=== PATIENT | male | born 1940 | race Caucasian/White ===

== ENCOUNTER 2016-12-14 12:05 | Emergency (ER) | payer MEDICARE, MEDICAID ==
--- NOTE | 2016-12-14 15:26 | EDM.PDOC ---
ED HPI GENERAL MEDICAL PROBLEM - General Chief Complaint: Genitourinary Problem Stated Complaint: ILL Time Seen by Provider: 12/14/16 15:16 Source of Information: Reports: Patient, Family, RN Notes Reviewed History Limitations: Reports: No Limitations - History of Present Illness INITIAL COMMENTS - FREE TEXT/NARRATIVE: 76-year-old gentleman resents emergency department today with difficulty with urination at times he has trouble starting his stream at the time still be incontinent of urine he's been dealing with this for the last 2 weeks has had low-grade fevers but nothing over 100 last night he had one episode of vomiting. At this time he feels his normal usual self - Related Data Allergies Allergy/AdvReac Type Severity Reaction Status Date / Time adhesive Allergy Severe Rash Verified 12/20/15 13:10 ciprofloxacin [From Cipro] Allergy Severe Edema Verified 12/20/15 13:10 ciprofloxacin HCl Allergy Severe Edema Verified 12/20/15 13:10 [From Cipro] Home Meds: Home Meds Aspirin [Adult Low Dose Aspirin EC] 81 mg PO DAILY 03/21/13 [History] EPINEPHrine [Epipen] 0.3 mg IM DAILY PRN 03/21/13 [History] HCTZ/Triamterene [Maxzide 25-37.5 MG] 1 tab PO DAILY 03/21/13 [History] Insulin Aspart [Novolog Flexpen] 60 unit SQ TID 03/21/13 [History] Insulin Detemir [Levemir Flexpen] 90 unit SQ BID 03/21/13 [History] Metoprolol Succinate [Toprol XL] 50 mg PO BID 03/21/13 [History] Multivitamin [Multi-Vitamin Daily] 1 each PO DAILY 03/21/13 [History] Holder-3 Fatty Acids [Holder-3] 100 mg PO BID 03/21/13 [History] Simvastatin [Zocor] 20 mg PO BEDTIME 03/21/13 [History] metFORMIN HCl [Fortamet] 1,000 mg PO BID 03/21/13 [History] Furosemide [Lasix] 40 mg PO DAILY #30 tablet 03/26/13 [Rx] Gemfibrozil [Lopid] 600 mg PO BIDAC #60 tablet 08/16/13 [Rx] amLODIPine [Norvasc] 5 mg PO DAILY #30 tablet 08/16/13 [Rx] Past Medical History HEENT History: Reports: Hard of Hearing, Impaired Vision, Other (See Below) Other HEENT History: No teeth Cardiovascular History: Reports: High Cholesterol, Hypertension Other Psychiatric History: Pt. unable to read or writel Possible dementia. Endocrine/Metabolic History: Reports: Diabetes, Type II Dermatologic History: Reports: Other (See Below) Other Dermatologic History: lower ext. cellulitis - Infectious Disease History Infectious Disease History: Reports: Chicken Pox, Measles, Mumps - Past Surgical History GI Surgical History: Reports: Appendectomy Social & Family History - Tobacco Use Smoking Status *Q: Never Smoker Years of Tobacco use: 25 Used Tobacco, but Quit: Yes Month Tobacco Last Used: 02/1979 Second Hand Smoke Exposure: No - Caffeine Use Caffeine Use: Reports: Coffee, Tea - Alcohol Use Days Per Week of Alcohol Use: 0 - Recreational Drug Use Recreational Drug Use: No ED ROS GENERAL - Review of Systems Review Of Systems: See Below Constitutional: Reports: Fever HEENT: Reports: No Symptoms Respiratory: Reports: No Symptoms Cardiovascular: Reports: No Symptoms GI/Abdominal: Reports: No Symptoms : Reports: No Symptoms ED EXAM, GI/ABD - Physical Exam Exam: See Below Exam Limited By: No Limitations General Appearance: Alert, WD/WN, No Apparent Distress Respiratory/Chest: No Respiratory Distress, Lungs Clear, Normal Breath Sounds, No Accessory Muscle Use, Chest Non-Tender Cardiovascular: Regular Rate, Rhythm, No Murmur GI/Abdominal Exam: Normal Bowel Sounds, Soft, Non-Tender Rectal (Males) Exam: Normal Exam, Normal Rectal Tone, Prostate Normal Course - Orders/Labs/Meds Labs: Laboratory Tests 12/14/16 12/14/16 12/14/16 Range/Units 15:38 15:38 15:38 WBC 9.1 (4.5-11.0) K/uL RBC 5.07 (4.30-5.90) M/uL Hgb 13.5 D (12.0-15.0) g/dL Hct 39.9 L (40.0-54.0) % MCV 79 L (80-98) fL MCH 27 (27-31) pg MCHC 34 (32-36) % Plt Count 205 (150-400) K/uL Neut % (Auto) 75 H (36-66) % Lymph % (Auto) 17 L (24-44) % [place] % (Auto) 8 H (2-6) % Eos % (Auto) 0 L (2-4) % Baso % (Auto) 0 (0-1) % Sodium 137 L (140-148) mmol/L Potassium 3.6 (3.6-5.2) mmol/L Chloride 102 (100-108) mmol/L Carbon Dioxide 29 (21-32) mmol/L Anion Gap 9.6 (5.0-14.0) mmol/L BUN 14 (7-18) mg/dL Creatinine 0.8 D (0.8-1.3) mg/dL Est Cr Clr Drug Dosing 78.56 mL/min Estimated GFR (MDRD) > 60 (>60) Glucose 267 H (74-106) mg/dL Calcium 9.0 (8.5-10.1) mg/dL Total Bilirubin 0.9 (0.2-1.0) mg/dL AST 16 (15-37) U/L ALT 14 (12-78) U/L Alkaline Phosphatase 54 (46-116) U/L Total Protein 6.8 (6.4-8.2) g/dL Albumin 3.0 L (3.4-5.0) g/dL Globulin 3.8 H (2.3-3.5) g/dL Albumin/Globulin Ratio 0.8 L (1.2-2.2) Urine Color Yellow Urine Appearance Cloudy Urine pH 5.0 (4.5-8.0) Ur Specific [place] 1.025 (1.008-1.030) Urine Protein 500 H (NEGATIVE) mg/dL Urine Glucose (UA) 1000 H (NEGATIVE) mg/dL Urine Ketones 15 H (NEGATIVE) mg/dL Urine Occult Blood Moderate (NEGATIVE) Urine Nitrite Negative (NEGAITVE) Urine Bilirubin Negative (NEGATIVE) Urine Urobilinogen Normal (NORMAL) mg/dL Ur Leukocyte Esterase Negative (NEGATIVE) Urine RBC 0-5 (0-5) Urine WBC 0-5 (0-5) Ur Epithelial Cells Rare Amorphous Sediment Packed Urine Bacteria Few Urine Mucus Not seen Departure - Departure Time of Disposition: 17:25 Disposition: Home, Self-Care 01 Condition: Good Clinical Impression: Retention of urine, Leakage of urine from ureter - Discharge Information Referrals: Shama Solis MD [Primary Care Provider] - Forms: ED Department Discharge Additional Instructions: Keep the leg bag in place, face follow-up with your primary care provider in the next 2-3 days for reevaluation recommend consultation with urology - Assessment/Plan Plan: Assessment Acuity = acute Site and laterality = urinary incontinence complicated in a patient with poorly controlled diabetes mellitus type 2 Etiology = unclear etiology Manifestations = incontinence with retention Location of injury = Home Lab values = CBC unremarkable albumin low at 3.0 consistent hypoalbuminemia blood sugar elevated 267 consistent with hyperglycemia urinalysis reveals 500 protein consistent proteinuria glucose greater than thousand consistent glucose urea and ketones 15 consistent ketonuria Plan [I did review lab work and urinalysis results with him plan is to place a leg bag him follow-up with his primary care in couple days for reevaluation with possible referral to urology Patient was in agreement with the plan all questions were answered, they were instructed to return to the emergency department or call for worsening symptoms. This note was dictated using [employer] voice recognition software please call with any questions.
== END 2016-12-14 18:00 | disposition home or self-care (01) ==
LOC: JP.ED 12:05
DX: R33.9 Retention of urine, unspecified (principal); R32 Unspecified urinary incontinence; E11.65 Type 2 diabetes mellitus with hyperglycemia; E78.00 Pure hypercholesterolemia, unspecified; I10 Essential (primary) hypertension; Z79.82 Long term (current) use of aspirin; Z88.8 Allergy status to other drugs, medicaments and biological substances
CPT/HCPCS: 36415; 51702; 80053; 81001; 85025; 99283; 99284-25

== ENCOUNTER 2018-02-28 00:36 | Inpatient (IN) | payer MEDICARE, MEDICAID ==
--- NOTE | 2018-02-28 01:21 | EDM.PDOC ---
ED HPI GENERAL MEDICAL PROBLEM - General Chief Complaint: General Stated Complaint: [facility] Time Seen by Provider: 02/28/18 01:13 Source of Information: Reports: Patient, Family, Other (pt does have dementia. ) History Limitations: Reports: No Limitations - History of Present Illness INITIAL COMMENTS - FREE TEXT/NARRATIVE: pt arrived with persistent wretching. He started vomiting about 4 hours ago and this has been very persistent. Onset: Today Duration: Hour(s): Location: Reports: Abdomen, Other (pt is vomiting but not having pain. He has not had a Bm for 3-4 days. ) Quality: Reports: Sharp, Stabbing Associated Symptoms: Reports: Nausea/Vomiting - Related Data Allergies Allergy/AdvReac Type Severity Reaction Status Date / Time adhesive Allergy Severe Rash Verified 02/28/18 00:52 ciprofloxacin [From Cipro] Allergy Severe Edema Verified 02/28/18 00:52 ciprofloxacin HCl Allergy Severe Edema Verified 02/28/18 00:52 [From Cipro] Home Meds: Home Meds Aspirin [Adult Low Dose Aspirin EC] 81 mg PO DAILY 03/21/13 [History] EPINEPHrine [Epipen] 0.3 mg IM DAILY PRN 03/21/13 [History] HCTZ/Triamterene [Maxzide 25-37.5 MG] 1 tab PO DAILY 03/21/13 [History] Insulin Aspart [Novolog Flexpen] 51 unit SQ BID 03/21/13 [History] Insulin Detemir [Levemir Flexpen] 51 unit SQ BID 03/21/13 [History] Metoprolol Succinate [Toprol XL] 50 mg PO BID 03/21/13 [History] Multivitamin [Multi-Vitamin Daily] 1 each PO DAILY 03/21/13 [History] Simvastatin [Zocor] 20 mg PO BEDTIME 03/21/13 [History] metFORMIN HCl [Fortamet] 1,000 mg PO BID 03/21/13 [History] Gemfibrozil [Lopid] 600 mg PO BIDAC #60 tablet 08/16/13 [Rx] amLODIPine [Norvasc] 5 mg PO DAILY #30 tablet 08/16/13 [Rx] Furosemide [Lasix] 40 mg PO BID 02/01/18 [History] Fexofenadine [Vera] 180 mg PO DAILY 02/28/18 [History] Past Medical History HEENT History: Reports: Cataract, Hard of Hearing, Impaired Vision, Other (See Below) Other HEENT History: No teeth Cardiovascular History: Reports: High Cholesterol, Hypertension Genitourinary History: Reports: Urinary Incontinence Neurological History: Reports: Other (See Below) Other Neuro History: spouse says that pt. was diagnosed with dementia about 2.5 years ago. 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 unable to read or writel Possible dementia. Endocrine/Metabolic History: Reports: Diabetes, Type II, Obesity/BMI 30+ Dermatologic History: Reports: Cellulitis Other Dermatologic History: lower ext. cellulitis - Infectious Disease History Infectious Disease History: Reports: Chicken Pox, Measles, Mumps - Past Surgical History HEENT Surgical History: Reports: Cataract Surgery, Eye Surgery GI Surgical History: Reports: Appendectomy Social & Family History - Tobacco Use Smoking Status *Q: Never Smoker - Caffeine Use Caffeine Use: Reports: Coffee, Soda - Recreational Drug Use Recreational Drug Use: No ED ROS GENERAL - Review of Systems Review Of Systems: See Below Constitutional: Reports: No Symptoms HEENT: Reports: No Symptoms Respiratory: Reports: No Symptoms Cardiovascular: Reports: No Symptoms Endocrine: Reports: No Symptoms GI/Abdominal: Reports: Constipation, Nausea, Vomiting, Other ( continuous. ) : Reports: No Symptoms Musculoskeletal: Reports: No Symptoms Skin: Reports: No Symptoms Neurological: Reports: No Symptoms, Other ( He has a known history of dementia. ) Psychiatric: Reports: Anxiety ED EXAM, GENERAL - Physical Exam Exam: See Below Free Text/Narrative:: Pt arrived after he had about 4 hours of continuous vomiting. He has not had a Bm for 2-3 days. He is not usually constipated. He does have a huistory of urosepsis. Exam Limited By: No Limitations General Appearance: Alert, Moderate Distress, Other ( Pt did have 8 mg of zoforan in the ambulance but he is still wretching. ) Ears: Normal TMs Nose: Normal Inspection Throat/Mouth: Normal Inspection Head: Atraumatic Neck: Normal Inspection Respiratory/Chest: No Respiratory Distress Cardiovascular: Regular Rate, Rhythm GI/Abdominal: Other (pt has a very rounded abdoman normally so distention is hard to evaluate. ) (Male) Exam: Normal Inspection Back Exam: Normal Inspection Extremities: Other (pt has very scaley lymphedema in his lower extremities. ) Neurological: Alert, Oriented, Normal Cognition Psychiatric: Flat Affect Course - Vital Signs Last Recorded V/S: Last Vital Signs Temp 37.0 C 02/28/18 01:22 Pulse 83 02/28/18 01:22 Resp 22 H 02/28/18 01:22 BP Pulse Ox 92 L 02/28/18 01:22 - Orders/Labs/Meds Orders: Active Orders 24 hr Category Date Time Status Abdomen Series w Chest 1V [CR] Urgent Exams 02/28/18 01:22 Ordered UA W/MICROSCOPIC [URIN] Urgent Lab 02/28/18 01:00 Ordered Sodium Chloride 0.9% [Normal Saline] 1,000 ml Med 02/28/18 01:30 Active IV ASDIRECTED Medication Orders Sodium Chloride (Normal Saline) 1,000 mls @ 999 mls/hr IV ASDIRECTED AMBAR Last Admin: 02/28/18 01:42 Dose: 999 mls/hr Labs: Laboratory Tests 02/28/18 02/28/18 Range/Units 01:10 01:10 WBC 10.6 (4.5-11.0) K/uL RBC 4.98 (4.30-5.90) M/uL Hgb 14.1 (12.0-15.0) g/dL Hct 40.4 (40.0-54.0) % MCV 81 (80-98) fL MCH 28 (27-31) pg MCHC 35 (32-36) % Plt Count 154 (150-400) K/uL Neut % (Auto) 90 H (36-66) % Lymph % (Auto) 5 L (24-44) % [place] % (Auto) 4 (2-6) % Eos % (Auto) 1 L (2-4) % Baso % (Auto) 0 (0-1) % Sodium 141 (140-148) mmol/L Potassium 3.0 L (3.6-5.2) mmol/L Chloride 100 (100-108) mmol/L Carbon Dioxide 32 (21-32) mmol/L Anion Gap 12.0 (5.0-14.0) mmol/L BUN 16 (7-18) mg/dL Creatinine 0.9 (0.8-1.3) mg/dL Est Cr Clr Drug Dosing 73.21 mL/min Estimated GFR (MDRD) > 60 (>60) Glucose 121 H (74-106) mg/dL Calcium 9.5 (8.5-10.1) mg/dL Total Bilirubin 0.5 (0.2-1.0) mg/dL AST 29 D (15-37) U/L ALT 30 D (12-78) U/L Alkaline Phosphatase 58 (46-116) U/L Total Protein 7.6 (6.4-8.2) g/dL Albumin 3.6 (3.4-5.0) g/dL Globulin 4.0 H (2.3-3.5) g/dL Albumin/Globulin Ratio 0.9 L (1.2-2.2) Meds: Medications Generic Name Dose Route Start Last Admin Trade Name Freq PRN Reason Stop Dose Admin Sodium Chloride 1,000 mls @ 999 mls/hr 02/28/18 01:30 02/28/18 01:42 Normal Saline IV 999 mls/hr ASDIRECTED AMBAR Administration - Re-Assessments/Exams Free Text/Narrative Re-Assessment/Exam: 02/28/18 02:09 pt arrived having wretching and vomiting. His k is low. His bs is not extremely high fluids were run on the pt. His k was found to be 3.0. . 02/28/18 02:10 02/28/18 02:27 02/28/18 02:51 flat of abdoman shows alot of stool present. He will be given a supp to help stimulate a bm. Departure - Departure Time of Disposition: 02:54 Disposition: Admitted As Inpatient 66 Condition: Fair Clinical Impression: Dehydration, Constipation, Vomiting, Hypokalemia - Discharge Information Referrals: Shama Solis MD [Primary Care Provider] - Forms: ED Department Discharge Care Plan Goals: admit to [facility]. - My Orders Last 24 Hours: My Active Orders 02/28/18 01:00 UA W/MICROSCOPIC [URIN] Urgent 02/28/18 01:22 Abdomen Series w Chest 1V [CR] Urgent 02/28/18 01:30 Sodium Chloride 0.9% [Normal Saline] 1,000 ml IV ASDIRECTED - Assessment/Plan Last 24 Hours: My Active Orders 02/28/18 01:00 UA W/MICROSCOPIC [URIN] Urgent 02/28/18 01:22 Abdomen Series w Chest 1V [CR] Urgent 02/28/18 01:30 Sodium Chloride 0.9% [Normal Saline] 1,000 ml IV ASDIRECTED
[2018-02-28] MEDS ORDERED: Sodium Chloride 0.9% 1,000 ML IV SCH ×2 (01:30→04:47)
[2018-02-28] MEDS ORDERED: Bisacodyl 10 MG Supp RECTAL ONE ×2 (02:50→06:00)
[2018-02-28] MEDS: Sodium Chloride 0.9% with KCl 1,000 ML IV SCH ×2 (03:27→07:14)
--- NOTE | 2018-02-28 04:13 | PCM.HP ---
H&P History of Present Illness - General Date of Service: 02/28/18 Admit Problem/Dx: Admission Diagnosis/Problem Admission Diagnosis/Problem Dehydration Source of Information: EMS History Limitations: Reports: Altered Mental Status (Dementia) - History of Present Illness Initial Comments - Free Text/Narative: This is a 77-year-old male presented to emergency room via EMS, he lives at home with [place], reports she had supper yesterday about 4:30 or 5 PM did quite well until about 7:30pm where he experienced a sudden onset of vomiting. Continue to vomit for 4 hours, called ambulance to transport to hospital for further care. , son, daughter, at bedside. While in the emergency Mr. Hernandez continued to have emesis. He was given Zofran 4 mg IV and Ativan 1 mg IV which resolved symptoms. Labs show potassium at 3.0 otherwise negative CBC chemistry and UA. X-ray of abdomen show moderate stool, no bowel obstruction. Plan to admit to hospital for dehydration with nausea, vomiting, constipation, hypokalemia bladder retention, and severe dementia. Onset of Symptoms: Reports: Today Duration of Symptoms: Reports: Hour(s): Location: Reports: Generalized Severity: Moderate Improves with: Reports: Medication Worsens with: Reports: None Associated Symptoms: Reports: Nausea/Vomiting, Weakness - Related Data Allergies/Adverse Reactions: Allergies Allergy/AdvReac Type Severity Reaction Status Date / Time adhesive Allergy Severe Rash Verified 02/28/18 00:52 ciprofloxacin [From Cipro] Allergy Severe Edema Verified 02/28/18 00:52 ciprofloxacin HCl Allergy Severe Edema Verified 02/28/18 00:52 [From Cipro] Home Medications: Home Meds Aspirin [Adult Low Dose Aspirin EC] 81 mg PO DAILY 03/21/13 [History] EPINEPHrine [Epipen] 0.3 mg IM DAILY PRN 03/21/13 [History] HCTZ/Triamterene [Maxzide 25-37.5 MG] 1 tab PO DAILY 03/21/13 [History] Insulin Aspart [Novolog Flexpen] 51 unit SQ BID 03/21/13 [History] Insulin Detemir [Levemir Flexpen] 51 unit SQ BID 03/21/13 [History] Metoprolol Succinate [Toprol XL] 50 mg PO BID 03/21/13 [History] Multivitamin [Multi-Vitamin Daily] 1 each PO DAILY 03/21/13 [History] Simvastatin [Zocor] 20 mg PO BEDTIME 03/21/13 [History] metFORMIN HCl [Fortamet] 1,000 mg PO BID 03/21/13 [History] Gemfibrozil [Lopid] 600 mg PO BIDAC #60 tablet 08/16/13 [Rx] amLODIPine [Norvasc] 5 mg PO DAILY #30 tablet 08/16/13 [Rx] Furosemide [Lasix] 40 mg PO BID 02/01/18 [History] Fexofenadine [Vera] 180 mg PO DAILY 02/28/18 [History] Past Medical History HEENT History: Reports: Cataract, Hard of Hearing, Impaired Vision, Other (See Below) Other HEENT History: No teeth Cardiovascular History: Reports: High Cholesterol, Hypertension Genitourinary History: Reports: Urinary Incontinence Neurological History: Reports: Other (See Below) Other Neuro History: spouse says that pt. was diagnosed with dementia about 2.5 years ago. 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 unable to read or writel Possible dementia. Endocrine/Metabolic History: Reports: Diabetes, Type II, Obesity/BMI 30+ Dermatologic History: Reports: Cellulitis Other Dermatologic History: lower ext. cellulitis - Infectious Disease History Infectious Disease History: Reports: Chicken Pox, Measles, Mumps - Past Surgical History HEENT Surgical History: Reports: Cataract Surgery, Eye Surgery GI Surgical History: Reports: Appendectomy Social & Family History - Tobacco Use Smoking Status *Q: Never Smoker - Caffeine Use Caffeine Use: Reports: Coffee, Soda - Recreational Drug Use Recreational Drug Use: No - Living Situation & Occupation Living situation: Reports: , with Family Occupation: Retired (Lives with [place] in [place], [place]. 2 children, 3 stepchildren) H&P Review of Systems - Review of Systems: Review Of Systems: See Below General: Reports: Chills (Chronic) HEENT: Reports: Glasses, Other (Cataract surgery 02/02/2018 right eye) Pulmonary: Reports: No Symptoms Cardiovascular: Reports: No Symptoms, Edema (Bilateral lower legs) Gastrointestinal: Reports: Constipation, Nausea, Vomiting Genitourinary: Reports: Retention (800 ML's on bladder scan) Musculoskeletal: Reports: No Symptoms Skin: Reports: Dryness, Rash (Lower legs), Other (Venous stasis dermatitis lower legs) Psychiatric: Reports: Other (Dementia 2 years, limited verbal response) Neurological: Reports: Pre-Existing Deficit, Difficulty Walking (Instructed to use cane or walker, patient refuses due to dementia), Gait Disturbance Hematologic/Lymphatic: Reports: No Symptoms Immunologic: Reports: No Symptoms Exam - Exam Exam: See Below - Vital Signs Vital Signs: Last Vital Signs Temp 37.0 C 02/28/18 01:22 Pulse 83 02/28/18 01:22 Resp 22 H 02/28/18 01:22 BP 140/58 L 02/28/18 01:05 Pulse Ox 92 L 02/28/18 01:22 Weight: 122.47 kg - Exam Quality Assessment: DVT Prophylaxis General: Alert, Cooperative HEENT: Conjunctiva Clear, EACs Clear, EOMI, Hearing Intact, Nares Patent, Posterior Pharynx Clear, Pupils Equal, Pupils Reactive, TMs Clear, Other (Mouth is dry tongue is cracked, no teeth present) Neck: Supple, Trachea Midline Lungs: Clear to Auscultation, Normal Respiratory Effort Cardiovascular: Regular Rate, Regular Rhythm, Normal S1, Normal S2 GI/Abdominal Exam: Normal Bowel Sounds, Non-Tender, Distended (Male) Exam: Normal Inspection. No: Circumcised Rectal (Males) Exam: Deferred Back Exam: Normal Inspection Extremities: Pedal Edema, Limited Range of Motion, Increased Warmth, Redness, Other (Lower legs to toes with thick scales, edema, redness. No signs of secondary infection) Peripheral Pulses: 2+: Radial (L), Radial (R) Skin: Warm, Dry, Rash (Bilateral lower legs) Neuro Extensive - Mental Status: Alert, Normal Mood/Affect (Happy and smiling appearance), Other (Limited response to questions not actively engaged in conversations) Neuro Extensive - Motor, Sensory, Reflexes: Motor/Sensory Deficits Psychiatric: Alert, Normal Affect, Normal Mood - Patient Data Lab Results Last 24 hrs: Laboratory Results - last 24 hr 02/28/18 02/28/18 02/28/18 Range/Units 01:00 01:10 01:10 WBC 10.6 (4.5-11.0) K/uL RBC 4.98 (4.30-5.90) M/uL Hgb 14.1 (12.0-15.0) g/dL Hct 40.4 (40.0-54.0) % MCV 81 (80-98) fL MCH 28 (27-31) pg MCHC 35 (32-36) % Plt Count 154 (150-400) K/uL Neut % (Auto) 90 H (36-66) % Lymph % (Auto) 5 L (24-44) % Leon % (Auto) 4 (2-6) % Eos % (Auto) 1 L (2-4) % Baso % (Auto) 0 (0-1) % Sodium 141 (140-148) mmol/L Potassium 3.0 L (3.6-5.2) mmol/L Chloride 100 (100-108) mmol/L Carbon Dioxide 32 (21-32) mmol/L Anion Gap 12.0 (5.0-14.0) mmol/L BUN 16 (7-18) mg/dL Creatinine 0.9 (0.8-1.3) mg/dL Est Cr Clr Drug Dosing 73.21 mL/min Estimated GFR (MDRD) > 60 (>60) Glucose 121 H (74-106) mg/dL Calcium 9.5 (8.5-10.1) mg/dL Total Bilirubin 0.5 (0.2-1.0) mg/dL AST 29 D (15-37) U/L ALT 30 D (12-78) U/L Alkaline Phosphatase 58 (46-116) U/L Total Protein 7.6 (6.4-8.2) g/dL Albumin 3.6 (3.4-5.0) g/dL Globulin 4.0 H (2.3-3.5) g/dL Albumin/Globulin Ratio 0.9 L (1.2-2.2) Urine Color Yellow Urine Appearance Clear Urine pH 5.0 (4.5-8.0) Ur Specific [place] 1.015 (1.008-1.030) Urine Protein 30 H (NEGATIVE) mg/dL Urine Glucose (UA) 50 H (NEGATIVE) mg/dL Urine Ketones Negative (NEGATIVE) mg/dL Urine Occult Blood Trace (NEGATIVE) Urine Nitrite Negative (NEGAITVE) Urine Bilirubin Negative (NEGATIVE) Urine Urobilinogen Normal (NORMAL) mg/dL Ur Leukocyte Esterase Negative (NEGATIVE) Urine RBC 0-5 (0-5) Urine WBC 0-5 (0-5) Ur Epithelial Cells Few Amorphous Sediment Not seen Urine Bacteria Few Urine Mucus Not seen Result Diagrams: 02/28/18 01:10 02/28/18 01:10 - Problem List (1) Dehydration SNOMED Code(s): 23314903 ICD Code: E86.0 - DEHYDRATION Status: Acute Current Visit: Yes (2) Vomiting SNOMED Code(s): 806345712 ICD Code: R11.10 - VOMITING, UNSPECIFIED Status: Acute Priority: High Current Visit: Yes Qualifiers: Vomiting type: projectile vomiting Nausea presence: with nausea Qualified Code(s): R11.12 - Projectile vomiting (3) Constipation SNOMED Code(s): 36690527 ICD Code: K59.00 - CONSTIPATION, UNSPECIFIED Status: Acute Priority: High Current Visit: Yes Qualifiers: Constipation type: unspecified constipation type Qualified Code(s): K59.00 - Constipation, unspecified (4) Hypokalemia SNOMED Code(s): 57824070 ICD Code: E87.6 - HYPOKALEMIA Status: Acute Priority: Medium Current Visit: Yes (5) Retention of urine SNOMED Code(s): 767572625 ICD Code: R33.9 - RETENTION OF URINE, UNSPECIFIED Status: Acute Priority : High Current Visit: Yes (6) Diabetes mellitus type 2 SNOMED Code(s): 24500642 ICD Code: E11.9 - TYPE 2 DIABETES MELLITUS WITHOUT COMPLICATIONS Status: Chronic Priority: Medium Current Visit: Yes Problem List Initiated/Reviewed/Updated: Yes Orders Last 24hrs: Active Orders 24 hr Category Date Time Status Patient Status Manage Transfer [TRANSFER] Routine ADT 02/28/18 03:47 Ordered Bladder Scan [RC] ASDIRECTED Care 02/28/18 02:51 Active Cardiac Monitoring [RC] .As Directed Care 02/28/18 02:07 Active Leo Catheter Insertion [Insert Urinary Catheter] [OM. Care 02/28/18 03:15 Ordered PC] Q24H Urinary Catheter Assessment [RC] ASDIRECTED Care 02/28/18 03:03 Active Abdomen Series w Chest 1V [CR] Urgent Exams 02/28/18 01:22 Taken Sodium Chloride 0.9% [Normal Saline] 1,000 ml Med 02/28/18 01:30 Active IV ASDIRECTED Sodium Chloride 0.9% with KCl [Normal Saline with 40 Med 02/28/18 03:00 Active mEq KCl] 1,000 ml IV ASDIRECTED Resuscitation Status Routine Resus Stat 02/28/18 03:49 Ordered Medication Orders Sodium Chloride (Normal Saline) 1,000 mls @ 999 mls/hr IV ASDIRECTED [facility] Last Admin: 02/28/18 01:42 Dose: 999 mls/hr Potassium Chloride/Sodium Chloride (Normal Saline With 40 Meq Kcl) 1,000 mls @ 300 mls/hr IV ASDIRECTED [facility] Last Admin: 02/28/18 03:27 Dose: 300 mls/hr Assessment/Plan Comment:: ASSESSMENT and PLAN:This is a 77-year-old male presented to emergency room via EMS, he lives at home with [place], reports she had supper yesterday about 4 :30 or 5 PM did quite well until about 7:30pm where he experienced a sudden onset of vomiting. Continue to vomit for 4 hours, called ambulance to transport to hospital for further care. , son, daughter, at bedside. While in the emergency Mr. Hernandez continued to have emesis. He was given Zofran 4 mg IV and Ativan 1 mg IV which resolved symptoms. Labs show potassium at 3.0 otherwise negative CBC chemistry and UA. X-ray of abdomen show moderate stool, no bowel obstruction. Plan to admit to hospital for dehydration with nausea, vomiting, constipation, hypokalemia bladder retention, and severe dementia. Dehydration, nausea and vomiting, with low potassium -Admit to [address] [place] [address] further monitoring -IV NS with KCL x one liter, then maintenance IV fluids at 125ml/hr -medications oral and IV for nausea/vomiting -daily labs, CBC, BMP Constipation -Fleets enema -Scheduled Miralax Dementia with Impaired activities of daily living -monitor bed Edema both legs lower, chronic -wound care -Elevate legs TYPE 2 DIABETES MELLITUS . -blood glucose monitor before meals and at bedtimes -medium dose sliding scale coverage -Insulin Levemir 51 units subcut in am and pm -Insulin Novolog 51 unit subcut in am and pm -diet soft diet Maintenance issues -Orders home meds: ordered/hold -Nutrition: soft diet -Leo catheter for bladder retention -DVT: Lovenox 30 mg subcut daily -PPI: IV Protonix 40mg daily -consult Spiritual CODE STATUS: FULL CODE Admission status: Admit to [address] [place] [address] This Patient is Admitted for Inpatient Services and is Medically Appropriate and Meets Medical Necessity for Inpatient Admission. I Reasonably Expect the Patient will Require Inpatient Services that Span a Period of Over 2 Midnights. My Rationale for Medically Necessary Inpatient Care will be Found in the Admission History & Physical and Progress Notes. I Reasonably Expect the Patient to be Discharged or Transferred within 96 Hours After Admission to this Critical [facility] Hospital. Disposition; home with Primary care provider: Dr. Shama Solis Hospitalist: Dr. Lutz
[2018-02-28] MEDS ORDERED: Albuterol/Ipratropium 3.0-0.5 MG/3 ML Neb Soln NEB PRN (04:47)
[2018-02-28] MEDS ORDERED: Bisacodyl 5 MG Tab PO PRN (04:47)
[2018-02-28] MEDS ORDERED: Albuterol 0.083% 2.5 MG/3 ML Neb Soln NEB PRN (04:47)
[2018-02-28] MEDS ORDERED: Sodium Phosphate,Monobasic/Sodium Phosphate,Dibasic Enema 133 ML Bottle RECTAL ONE (04:47)
[2018-02-28] MEDS ORDERED: LORazepam 2 MG/ML SDV IV PRN (04:47)
[2018-02-28] MEDS ORDERED: Acetaminophen 325 MG Tab PO PRN (04:47)
[2018-02-28] MEDS ORDERED: oxyCODONE 5 MG Tab PO PRN (04:47)
[2018-02-28] MEDS ORDERED: Ondansetron 4 MG Tab.DIS PO PRN (04:47)
[2018-02-28] MEDS ORDERED: Enoxaparin 40 MG/0.4 ML Syringe SUBCUT ONE (05:30)
[2018-02-28] MEDS ORDERED: Bisacodyl 10 MG Supp ONE (05:34)
[2018-02-28] MEDS: Insulin Lispro 100 Unit/ML 3 ML KwikPen SUBCUT SCH ×6 (08:27→21:24)
[2018-02-28] MEDS: Insulin Glargine,Human Rec. Analog 100 Units/ML 3 ML Pen SUBCUT SCH ×2 (08:30→21:25)
[2018-02-28] MEDS: Hydrochlorothiazide/Triamterene 25-37.5 Tab PO SCH (08:34)
[2018-02-28] MEDS: Furosemide 40 MG Tab PO SCH ×2 (08:34→14:40)
[2018-02-28] MEDS: amLODIPine 5 MG Tab PO SCH (08:35)
[2018-02-28] MEDS: Polyethylene Glycol 3350 Powder 17 GM Packet PO SCH (08:35)
[2018-02-28] MEDS: Metoprolol Succinate 50 MG Tab.ER PO SCH ×2 (08:43→21:22)
[2018-02-28] MEDS ORDERED: Insulin Lispro 100 Unit/ML 3 ML KwikPen SUBCUT SCH ×2 (09:00)
[2018-02-28] MEDS ORDERED: Pantoprazole 40 MG Vial IVPUSH SCH (09:00)
[2018-02-28] MEDS ORDERED: Insulin Glargine,Human Rec. Analog 100 Units/ML 3 ML Pen SUBCUT SCH (09:00)
--- NOTE | 2018-02-28 09:17 | CR ---
Mild cardiomegaly.. Mild interstitial thickening within the upper lobes. Correlate for vascular congestion. Infectious etiology not excluded. No focal consolidation. There is some gaseous distention of the colon with large amount of fecal residual. No dilated loops of large or small bowel.
--- NOTE | 2018-02-28 11:08 | PCM.PN ---
- General Info Date of Service: 02/28/18 Subjective Update: Mr. Hernandez is a 77-year-old gentleman who was admitted last night with dehydration and constipation. On evaluation emergency room department was also found to have hypokalemia and has received potassium replacement. This morning his potassium level is within normal range and hydration has improved. He did have a large bowel movement. He was unable to urinate and had significant urinary retention so Leo catheter has been placed. He has significant dementia and is unable to provide a meaningful history concerning recent symptoms or review of systems. - Patient Data Vitals - Most Recent: Last Vital Signs Temp 98.7 F 02/28/18 07:00 Pulse 79 02/28/18 08:43 Resp 18 02/28/18 07:00 BP 138/52 L 02/28/18 08:43 Pulse Ox 88 L 02/28/18 07:00 Weight - Most Recent: 271 lb 0.016 oz I&O - Last 24 Hours: Intake & Output 02/27/18 02/28/18 02/28/18 22:59 06:59 14:59 Output Total 75 Balance -75 Lab Results Last 24 Hours: Laboratory Results - last 24 hr 02/28/18 02/28/18 02/28/18 Range/Units 01:00 01:10 01:10 WBC 10.6 (4.5-11.0) K/uL RBC 4.98 (4.30-5.90) M/uL Hgb 14.1 (12.0-15.0) g/dL Hct 40.4 (40.0-54.0) % MCV 81 (80-98) fL MCH 28 (27-31) pg MCHC 35 (32-36) % Plt Count 154 (150-400) K/uL Neut % (Auto) 90 H (36-66) % Lymph % (Auto) 5 L (24-44) % [place] % (Auto) 4 (2-6) % Eos % (Auto) 1 L (2-4) % Baso % (Auto) 0 (0-1) % Sodium 141 (140-148) mmol/L Potassium 3.0 L (3.6-5.2) mmol/L Chloride 100 (100-108) mmol/L Carbon Dioxide 32 (21-32) mmol/L Anion Gap 12.0 (5.0-14.0) mmol/L BUN 16 (7-18) mg/dL Creatinine 0.9 (0.8-1.3) mg/dL Est Cr Clr Drug Dosing 73.21 mL/min Estimated GFR (MDRD) > 60 (>60) Glucose 121 H (74-106) mg/dL Calcium 9.5 (8.5-10.1) mg/dL Total Bilirubin 0.5 (0.2-1.0) mg/dL AST 29 D (15-37) U/L ALT 30 D (12-78) U/L Alkaline Phosphatase 58 (46-116) U/L Total Protein 7.6 (6.4-8.2) g/dL Albumin 3.6 (3.4-5.0) g/dL Globulin 4.0 H (2.3-3.5) g/dL Albumin/Globulin Ratio 0.9 L (1.2-2.2) Urine Color Yellow Urine Appearance Clear Urine pH 5.0 (4.5-8.0) Ur Specific [place] 1.015 (1.008-1.030) Urine Protein 30 H (NEGATIVE) mg/dL Urine Glucose (UA) 50 H (NEGATIVE) mg/dL Urine Ketones Negative (NEGATIVE) mg/dL Urine Occult Blood Trace (NEGATIVE) Urine Nitrite Negative (NEGAITVE) Urine Bilirubin Negative (NEGATIVE) Urine Urobilinogen Normal (NORMAL) mg/dL Ur Leukocyte Esterase Negative (NEGATIVE) Urine RBC 0-5 (0-5) Urine WBC 0-5 (0-5) Ur Epithelial Cells Few Amorphous Sediment Not seen Urine Bacteria Few Urine Mucus Not seen 02/28/18 Range/Units 08:54 WBC (4.5-11.0) K/uL RBC (4.30-5.90) M/uL Hgb (12.0-15.0) g/dL Hct (40.0-54.0) % MCV (80-98) fL MCH (27-31) pg MCHC (32-36) % Plt Count (150-400) K/uL Neut % (Auto) (36-66) % Lymph % (Auto) (24-44) % [place] % (Auto) (2-6) % Eos % (Auto) (2-4) % Baso % (Auto) (0-1) % Sodium 140 (140-148) mmol/L Potassium 4.5 (3.6-5.2) mmol/L Chloride 101 (100-108) mmol/L Carbon Dioxide 29 (21-32) mmol/L Anion Gap 10.4 (5.0-14.0) mmol/L BUN 16 (7-18) mg/dL Creatinine 0.9 (0.8-1.3) mg/dL Est Cr Clr Drug Dosing 73.21 mL/min Estimated GFR (MDRD) > 60 (>60) Glucose 222 H (74-106) mg/dL Calcium 9.0 (8.5-10.1) mg/dL Total Bilirubin (0.2-1.0) mg/dL AST (15-37) U/L ALT (12-78) U/L Alkaline Phosphatase (46-116) U/L Total Protein (6.4-8.2) g/dL Albumin (3.4-5.0) g/dL Globulin (2.3-3.5) g/dL Albumin/Globulin Ratio (1.2-2.2) Urine Color Urine Appearance Urine pH (4.5-8.0) Ur Specific [place] (1.008-1.030) Urine Protein (NEGATIVE) mg/dL Urine Glucose (UA) (NEGATIVE) mg/dL Urine Ketones (NEGATIVE) mg/dL Urine Occult Blood (NEGATIVE) Urine Nitrite (NEGAITVE) Urine Bilirubin (NEGATIVE) Urine Urobilinogen (NORMAL) mg/dL Ur Leukocyte Esterase (NEGATIVE) Urine RBC (0-5) Urine WBC (0-5) Ur Epithelial Cells Amorphous Sediment Urine Bacteria Urine Mucus Med Orders - Current: Current Medications Acetaminophen (Tylenol) 650 mg PO Q4H PRN PRN Reason: Pain (Mild 1-3)/fever Albuterol (Proventil Neb Soln) 2.5 mg NEB Q4H PRN PRN Reason: Shortness Of Breath/wheezing Albuterol/Ipratropium (Duoneb 3.0-0.5 Mg/3 Ml) 3 ml NEB QID PRN PRN Reason: Shortness Of Breath/wheezing Amlodipine Besylate (Norvasc) 5 mg PO DAILY [facility] Last Admin: 02/28/18 08:35 Dose: 5 mg Bisacodyl (Dulcolax) 5 mg PO DAILY PRN PRN Reason: Constipation Enoxaparin Sodium (Lovenox) 40 mg SUBCUT DAILY [facility] Furosemide (Lasix) 40 mg PO BIDDIURETIC [facility] Last Admin: 02/28/18 08:34 Dose: 40 mg Insulin Glargine (Lantus Solostar) 51 units SUBCUT BID [facility] Last Admin: 02/28/18 08:30 Dose: 51 unit Insulin Human Lispro (Humalog) 0 unit SUBCUT QIDACANDBED [facility]; Protocol Last Admin: 02/28/18 08:29 Dose: 1 unit Insulin Human Lispro (Humalog) 51 unit SUBCUT BID [facility] Last Admin: 02/28/18 08:27 Dose: 51 units Metoprolol Succinate (Toprol Xl) 50 mg PO BID [facility] Last Admin: 02/28/18 08:43 Dose: 50 mg Ondansetron HCl (Zofran Odt) 4 mg PO Q6H PRN PRN Reason: Nausea able to take PO Oxycodone HCl (Oxycodone) 5 mg PO Q4H PRN PRN Reason: Pain (moderate 4-6) Polyethylene Glycol (Miralax) 17 gm PO DAILY [facility] Last Admin: 02/28/18 08:35 Dose: 17 gm Tamsulosin HCl (Flomax) 0.4 mg PO PCBREAKFAST [facility] Triamterene/HCTZ (Maxzide 25-37.5 Mg) 1 each PO DAILY [facility] Last Admin: 02/28/18 08:34 Dose: 1 each Discontinued Medications Bisacodyl (Dulcolax) 10 mg RECTAL ONETIME ONE Stop: 02/28/18 02:51 Last Admin: 02/28/18 05:42 Dose: 10 mg Bisacodyl (Dulcolax) 10 mg RECTAL ONETIME ONE Stop: 02/28/18 06:01 Last Admin: 02/28/18 09:09 Dose: Not Given Bisacodyl (Dulcolax) Confirm Administered Dose 10 mg .ROUTE .STK-MED ONE Stop: 02/28/18 05:35 Last Admin: 02/28/18 05:44 Dose: Not Given Enoxaparin Sodium (Lovenox) 40 mg SUBCUT ONETIME ONE Stop: 02/28/18 05:31 Last Admin: 02/28/18 05:44 Dose: 40 mg Sodium Chloride (Normal Saline) 1,000 mls @ 999 mls/hr IV ASDIRECTED [facility] Last Admin: 02/28/18 01:42 Dose: 999 mls/hr Potassium Chloride/Sodium Chloride (Normal Saline With 40 Meq Kcl) 1,000 mls @ 300 mls/hr IV ASDIRECTED [facility] Last Admin: 02/28/18 07:14 Dose: 300 mls/hr Sodium Chloride (Normal Saline) 1,000 mls @ 125 [facility] Last Admin: 02/28/18 07:15 Dose: 125 mls/hr Lorazepam (Ativan) 1 mg IV Q6H PRN PRN Reason: Nausea/Vomiting Pantoprazole Sodium (Protonix Iv) 40 mg IVPUSH DAILY [facility] Last Admin: 02/28/18 08:45 Dose: 40 mg Sodium Biphosphate/Sodium Phosphate (Fleet Enema) 133 ml RECTAL ONETIME ONE Stop: 02/28/18 04:48 Last Admin: 02/28/18 09:09 Dose: Not Given Tamsulosin HCl (Flomax) 0.4 mg PO [facility] - Exam Quality Assessment: DVT Prophylaxis General: Alert, Cooperative, No Acute Distress Lungs: Clear to Auscultation, Normal Respiratory Effort Cardiovascular: Regular Rate, Regular Rhythm, No Murmurs GI/Abdominal Exam: Soft, Non-Tender, No Organomegaly, No Distention Extremities: Non-Tender, No Pedal Edema - Problem List Review Problem List Initiated/Reviewed/Updated: Yes - My Orders Last 24 Hours: My Active Orders 02/28/18 10:55 Tamsulosin [Flomax] 0.4 mg PO PCBREAKFAST 02/28/18 10:59 Convert IV to Saline Lock [OM.PC] Routine - Plan Plan:: ASSESSMENT AND PLAN Dehydration, nausea and vomiting, with low potassium-improved since admission, he has received IV fluids and potassium replacement. Dehydration has resolved with no further nausea or vomiting. Potassium level this morning is within normal range -Saline lock IV -medications oral and IV for nausea/vomiting Constipation-resolved, he had a large bowel movement this morning -Scheduled Miralax Bladder outlet obstruction-Leo catheter was placed at because he was unable to urinate -Flomax 0.4 mg by mouth daily to start today -Remove Leo catheter later today Dementia with Impaired activities of daily living -monitor bed Edema both legs lower, chronic -wound care -Elevate legs TYPE 2 DIABETES MELLITUS-on a fairly large dose of short acting insulin, double check with pharmacy and clinic to confirm that this is in accurate dose -blood glucose monitor before meals and at bedtimes -medium dose sliding scale coverage -Insulin Levemir 51 units subcut in am and pm -Insulin Novolog 51 unit subcut in am and pm -diet soft diet Maintenance issues -Nutrition: soft diet -Leo catheter for bladder retention -DVT: Lovenox 30 mg subcut daily -PPI: IV Protonix 40mg daily -consult Spiritual CODE STATUS: FULL CODE Admission status: Admit to [address] [place] [address] This Patient is Admitted for Inpatient Services and is Medically Appropriate and Meets Medical Necessity for Inpatient Admission. I Reasonably Expect the Patient will Require Inpatient Services that Span a Period of Over 2 Midnights. My Rationale for Medically Necessary Inpatient Care will be Found in the Admission History & Physical and Progress Notes. I Reasonably Expect the Patient to be Discharged or Transferred within 96 Hours After Admission to this Critical Access Hospital. Disposition; home with Primary care provider: Dr. Shama Solis Hospitalist: Dr. Lutz
[2018-02-28] MEDS: Tamsulosin 0.4 MG Cap.ER PO SCH (11:40)
[2018-03-01] MEDS: Furosemide 40 MG Tab PO SCH (08:52)
[2018-03-01] MEDS: Polyethylene Glycol 3350 Powder 17 GM Packet PO SCH (08:53)
[2018-03-01] MEDS: Tamsulosin 0.4 MG Cap.ER PO SCH (08:53)
[2018-03-01] MEDS: Metoprolol Succinate 50 MG Tab.ER PO SCH (08:53)
[2018-03-01] MEDS: Hydrochlorothiazide/Triamterene 25-37.5 Tab PO SCH (08:53)
[2018-03-01] MEDS: amLODIPine 5 MG Tab PO SCH (08:54)
[2018-03-01] MEDS ORDERED: Enoxaparin 40 MG/0.4 ML Syringe SUBCUT SCH (09:00)
[2018-03-01] MEDS ORDERED: Tamsulosin 0.4 MG Cap.ER PO SCH (09:00)
[2018-03-01] MEDS: Insulin Glargine,Human Rec. Analog 100 Units/ML 3 ML Pen SUBCUT SCH (09:21)
[2018-03-01] MEDS: Insulin Lispro 100 Unit/ML 3 ML KwikPen SUBCUT SCH ×2 (09:22)
[2018-03-01 10:42] VITALS: BP 148/50
--- NOTE | 2018-03-01 12:38 | PCM.DCSUM1 ---
Discharge Summary - Hospital Course Brief History: Mr. Hernandez is a 77-year-old gentleman who was admitted through the emergency department with weakness and lethargy secondary to dehydration and constipation - Discharge Data Discharge Date: 03/01/18 Discharge Disposition: Home, Self-Care 01 Condition: Fair - Discharge Diagnosis/Problem(s) (1) Dehydration SNOMED Code(s): 82468677 ICD Code: E86.0 - DEHYDRATION Status: Acute (2) Constipation SNOMED Code(s): 89127049 ICD Code: K59.00 - CONSTIPATION, UNSPECIFIED Status: Acute Priority: High Qualifiers: Constipation type: unspecified constipation type Qualified Code(s): K59.00 - Constipation, unspecified (3) Vomiting SNOMED Code(s): 804026578 ICD Code: R11.10 - VOMITING, UNSPECIFIED Status: Acute Priority: High Qualifiers: Vomiting type: projectile vomiting Nausea presence: with nausea Qualified Code(s): R11.12 - Projectile vomiting (4) Retention of urine SNOMED Code(s): 221756414 ICD Code: R33.9 - RETENTION OF URINE, UNSPECIFIED Status: Acute Priority : High (5) Diabetes mellitus type 2 SNOMED Code(s): 91401930 ICD Code: E11.9 - TYPE 2 DIABETES MELLITUS WITHOUT COMPLICATIONS Status: Chronic Priority: Medium (6) Dementia with behavioral disturbance SNOMED Code(s): 1463907058720 ICD Code: F03.91 - UNSPECIFIED DEMENTIA WITH BEHAVIORAL DISTURBANCE Status : Chronic - Patient Summary/Data Consults: Consultations 02/28/18 04:47 Consult to Spiritual Care [CONS] Routine Special Instructions: daily prayers, communion Hospital Course: Mr. Hernandez is a 77-year-old gentleman who was admitted through the emergency department with weakness and lethargy secondary to dehydration with underlying constipation. He has a known history of dementia and is cared for at home by his . For a few days prior to admission he become progressively more weak with decreased level of consciousness. Oral intake at been diminished during this period of time. On evaluation in the emergency department he had no evidence of underlying infection or significant metabolic abnormality. He was found to be significantly constipated as well as dehydrated. On admission he was given IV fluids for hydration, medications were also given per rectum for management of constipation including Dulcolax suppository and Fleet enema. Hospital course was complicated by urinary tract infection and a Leo catheter was placed after admission. By the following morning he appeared to be significantly improved and back to his baseline state, IV fluids were discontinued. He also had a large bowel movement with no further evidence of constipation. He was started on Miralax once daily and this will be continued after discharge. He was started on Flomax 0.4 mg by mouth daily, later in the day his Leo catheter was removed and he was able to urinate over the next 16 hours prior to discharge. Activity will be as tolerated and he will resume his usual diet. Followup appointment will be scheduled with his primary care provider within one week. - Patient Instructions Diet: Usual Diet as Tolerated Activity: As Tolerated Other/Special Instructions: Please schedule follow-up appointment with primary care provider within one week. - Discharge Plan *PRESCRIPTION DRUG MONITORING PROGRAM REVIEWED*: Not Applicable *COPY OF PRESCRIPTION DRUG MONITORING REPORT IN PATIENT NARENDRA: Not Applicable Prescriptions/Med Rec: Polyethylene Glycol 3350 [MiraLAX] 17 gm PO DAILY #30 packet Tamsulosin [Flomax] 0.4 mg PO PCBREAKFAST #30 cap.er Home Medications: Home Meds Aspirin [Adult Low Dose Aspirin EC] 81 mg PO DAILY 03/21/13 [History] EPINEPHrine [Epipen] 0.3 mg IM DAILY PRN 03/21/13 [History] HCTZ/Triamterene [Maxzide 25-37.5 MG] 1 tab PO DAILY 03/21/13 [History] Insulin Aspart [Novolog Flexpen] 51 unit SQ BID 03/21/13 [History] Insulin Detemir [Levemir Flexpen] 51 unit SQ BID 03/21/13 [History] Metoprolol Succinate [Toprol XL] 50 mg PO BID 03/21/13 [History] Multivitamin [Multi-Vitamin Daily] 1 each PO DAILY 03/21/13 [History] Simvastatin [Zocor] 20 mg PO BEDTIME 03/21/13 [History] metFORMIN HCl [Fortamet] 1,000 mg PO BID 03/21/13 [History] Gemfibrozil [Lopid] 600 mg PO BIDAC #60 tablet 08/16/13 [Rx] amLODIPine [Norvasc] 5 mg PO DAILY #30 tablet 08/16/13 [Rx] Furosemide [Lasix] 40 mg PO BID 02/01/18 [History] Fexofenadine [Vera] 180 mg PO DAILY 02/28/18 [History] Polyethylene Glycol 3350 [MiraLAX] 17 gm PO DAILY #30 packet 03/01/18 [Rx] Tamsulosin [Flomax] 0.4 mg PO PCBREAKFAST #30 cap.er 03/01/18 [Rx] Referrals: Shama Solis MD [Primary Care Provider] - - Discharge Summary/Plan Comment DC Time >30 min.: No - Patient Data Vitals - Most Recent: Last Vital Signs Temp 97.6 F 03/01/18 10:40 Pulse 68 03/01/18 10:40 Resp 16 03/01/18 10:40 BP 148/50 H 03/01/18 10:40 Pulse Ox 93 L 03/01/18 10:40 Weight - Most Recent: 271 lb 0.016 oz I&O - Last 24 hours: Intake & Output 02/28/18 03/01/18 03/01/18 22:59 06:59 14:59 Intake Total 772 120 Output Total 275 550 Balance 497 -550 120 Med Orders - Current: Current Medications Acetaminophen (Tylenol) 650 mg PO Q4H PRN PRN Reason: Pain (Mild 1-3)/fever Last Admin: 02/28/18 17:17 Dose: 650 mg Albuterol (Proventil Neb Soln) 2.5 mg NEB Q4H PRN PRN Reason: Shortness Of Breath/wheezing Albuterol/Ipratropium (Duoneb 3.0-0.5 Mg/3 Ml) 3 ml NEB QID PRN PRN Reason: Shortness Of Breath/wheezing Amlodipine Besylate (Norvasc) 5 mg PO DAILY [facility] Last Admin: 03/01/18 08:54 Dose: 5 mg Bisacodyl (Dulcolax) 5 mg PO DAILY PRN PRN Reason: Constipation Enoxaparin Sodium (Lovenox) 40 mg SUBCUT DAILY [facility] Last Admin: 03/01/18 08:53 Dose: 40 mg Furosemide (Lasix) 40 mg PO BIDDIURETIC [facility] Last Admin: 03/01/18 08:52 Dose: 40 mg Insulin Glargine (Lantus Solostar) 51 units SUBCUT BID [facility] Last Admin: 03/01/18 09:21 Dose: 51 unit Insulin Human Lispro (Humalog) 0 unit SUBCUT QIDACANDBED [facility]; Protocol Last Admin: 03/01/18 09:22 Dose: 2 unit Insulin Human Lispro (Humalog) 51 unit SUBCUT BID [facility] Last Admin: 03/01/18 09:22 Dose: 51 units Metoprolol Succinate (Toprol Xl) 50 mg PO BID [facility] Last Admin: 03/01/18 08:53 Dose: 50 mg Ondansetron HCl (Zofran Odt) 4 mg PO Q6H PRN PRN Reason: Nausea able to take PO Last Admin: 02/28/18 17:16 Dose: 4 mg Oxycodone HCl (Oxycodone) 5 mg PO Q4H PRN PRN Reason: Pain (moderate 4-6) Polyethylene Glycol (Miralax) 17 gm PO DAILY [facility] Last Admin: 03/01/18 08:53 Dose: 17 gm Tamsulosin HCl (Flomax) 0.4 mg PO PCBREAKFAST [facility] Last Admin: 03/01/18 08:53 Dose: 0.4 mg Triamterene/HCTZ (Maxzide 25-37.5 Mg) 1 each PO DAILY [facility] Last Admin: 03/01/18 08:53 Dose: 1 each Discontinued Medications Bisacodyl (Dulcolax) 10 mg RECTAL ONETIME ONE Stop: 02/28/18 02:51 Last Admin: 02/28/18 05:42 Dose: 10 mg Bisacodyl (Dulcolax) 10 mg RECTAL ONETIME ONE Stop: 02/28/18 06:01 Last Admin: 02/28/18 09:09 Dose: Not Given Bisacodyl (Dulcolax) Confirm Administered Dose 10 mg .ROUTE .STK-MED ONE Stop: 02/28/18 05:35 Last Admin: 02/28/18 05:44 Dose: Not Given Enoxaparin Sodium (Lovenox) 40 mg SUBCUT ONETIME ONE Stop: 02/28/18 05:31 Last Admin: 02/28/18 05:44 Dose: 40 mg Sodium Chloride (Normal Saline) 1,000 mls @ 999 mls/hr IV ASDIRECTED [facility] Last Admin: 02/28/18 01:42 Dose: 999 mls/hr Potassium Chloride/Sodium Chloride (Normal Saline With 40 Meq Kcl) 1,000 mls @ 300 mls/hr IV ASDIRECTED [facility] Last Admin: 02/28/18 07:14 Dose: 300 mls/hr Sodium Chloride (Normal Saline) 1,000 mls @ 125 mls/hr IV ASDIRECTED [facility] Last Admin: 02/28/18 07:15 Dose: 125 mls/hr Lorazepam (Ativan) 1 mg IV Q6H PRN PRN Reason: Nausea/Vomiting Pantoprazole Sodium (Protonix Iv) 40 mg IVPUSH DAILY [facility] Last Admin: 02/28/18 08:45 Dose: 40 mg Sodium Biphosphate/Sodium Phosphate (Fleet Enema) 133 ml RECTAL ONETIME ONE Stop: 02/28/18 04:48 Last Admin: 02/28/18 09:09 Dose: Not Given Tamsulosin HCl (Flomax) 0.4 mg PO PCBREAKFAST [facility] - Exam Quality Assessment: Reports: DVT Prophylaxis General: Reports: Alert, Cooperative, No Acute Distress Lungs: Reports: Clear to Auscultation, Normal Respiratory Effort Cardiovascular: Reports: Regular Rate, Regular Rhythm, No Murmurs GI/Abdominal Exam: Soft, Non-Tender, No Organomegaly, No Distention Extremities: Non-Tender, No Pedal Edema
== END 2018-03-01 12:59 | disposition home or self-care (01) | DRG 641 ==
LOC: JP.ED 00:36 → JP.MS 03:47
PROVIDERS: ADMIT Nurse Practitioner; ATTEND Nurse Practitioner
DX: E86.0 Dehydration (principal); E87.6 Hypokalemia; E78.00 Pure hypercholesterolemia, unspecified; I10 Essential (primary) hypertension; R32 Unspecified urinary incontinence; N32.0 Bladder-neck obstruction; F03.90 Unspecified dementia, unspecified severity, without behavioral disturbance, psychotic disturbance, mood disturbance, and anxiety; E11.9 Type 2 diabetes mellitus without complications; E66.9 Obesity, unspecified; R60.0 Localized edema; R33.9 Retention of urine, unspecified; K59.00 Constipation, unspecified; H54.7 Unspecified visual loss; H91.90 Unspecified hearing loss, unspecified ear; Z88.1 Allergy status to other antibiotic agents; Z91.048 Other nonmedicinal substance allergy status; I89.0 Lymphedema, not elsewhere classified; R11.2 Nausea with vomiting, unspecified; R14.0 Abdominal distension (gaseous); Z79.82 Long term (current) use of aspirin; Z79.899 Other long term (current) drug therapy; Z79.4 Long term (current) use of insulin; Z68.37 Body mass index [BMI] 37.0-37.9, adult
CPT/HCPCS: 36415; 74022 ×2; 80053; 81001; 85025; J3480; J7030; 51702; 51798; 80048; 82962; 96361; 96374; 99284; 99285-25; A9270-GY; C9113; J1650; J1815; J1815-GY

== ENCOUNTER 2018-05-03 06:59 | Day surgery (SDC) | payer MEDICARE, MEDICAID ==
[2018-05-03 07:21] VITALS: BP 174/93
[2018-05-03] MEDS ORDERED: Sodium Chloride 0.9% 10 ML Syringe FLUSH PRN (08:00)
--- NOTE | 2018-05-03 14:25 | OR ---
DATE OF PROCEDURE: 05/03/2018 POSTOPERATIVE CARE: Postoperative care will be provided mainly at the [address] [place] [address] [facility] in conjunction with [facility]. PREOPERATIVE DIAGNOSIS: Cataract, left eye. POSTOPERATIVE DIAGNOSIS: Cataract, left eye. PROCEDURE: Phacoemulsification with intraocular lens placement, left eye. ANESTHESIA: Topical and intracameral. ESTIMATED BLOOD LOSS: Minimal. COMPLICATIONS: None. PATHOLOGY SPECIMENS: None. SURGICAL FINDINGS: None. INDICATION FOR PROCEDURE: The patient is a 77-year-old male with history of a visually significant cataract in the left eye, which interfered with activities of daily living. This consisted of a nuclear sclerosis cataract. Following careful discussion of the risks, benefits and alternatives to cataract extraction with intraocular lens placement including blindness and , the patient elected to proceed, and informed, written consent was obtained prior to the procedure. DESCRIPTION OF THE PROCEDURE: The patient was previously identified, and a rich placed above the left eye. All sources, including the patient, indicated that the left eye was the correct eye. The patient was subsequently taken to the operating room where standard monitors were applied. The patient was then prepped and draped in the usual sterile fashion for ophthalmic surgery. Attention was first directed at the 12 o'clock position where a paracentesis port was fashioned. Shugar solution followed by Viscoat was instilled into the eye. Attention was then directed to the 8:30 position where a triplanar incision was made in a near-clear manner using a keratome. A continuous capsulorrhexis was then made using a combination of the cystotome and Utrata forceps. Hydrodissection was achieved using a balanced salt solution, and the lens rotated nicely. Phacoemulsification was then done using a modified [id number] technique without complication. Phaco time was 5.98 CDE. The remaining cortex was removed using the irrigation/aspiration handpiece. Provisc was then instilled into the eye. A Technis lens, model [id number], at 18.0 diopters was then placed in the capsular bag using an [place] injector. The remaining viscoelastic was removed using the irrigation/aspiration forceps. All wounds were then checked and found to be watertight. The lid speculum and drapes were removed. Maxitrol ointment was placed in the patient's left eye, and the eye was shielded. The patient tolerated the procedure well. The patient was instructed to follow up tomorrow. All needle and sponge counts were correct at the end of the procedure. Ines Mcgraw MD /[id number]
== END 2018-05-03 08:45 | disposition home or self-care (01) ==
LOC: JP.SDS 06:59
PROVIDERS: ATTEND Ophthalmology
DX: E11.36 Type 2 diabetes mellitus with diabetic cataract (principal); H25.12 Age-related nuclear cataract, left eye; I10 Essential (primary) hypertension
CPT/HCPCS: 66984; C1780

== ENCOUNTER 2018-07-29 10:25 | Inpatient (IN) | payer MEDICARE, MEDICAID ==
[2018-07-29] MEDS ORDERED: Lactated Ringers 1,000 ML IV ONE (10:49)
[2018-07-29] MEDS ORDERED: Piperacillin/Tazobactam 4.5 GM in Sodium Chloride 0.9% 50 ML IV SCH (11:00)
--- NOTE | 2018-07-29 11:24 | EDM.PDOC ---
ED HPI GENERAL MEDICAL PROBLEM - General Chief Complaint: Gastrointestinal Problem Stated Complaint: MEDICAL [facility]IA [facility] Time Seen by Provider: 07/29/18 10:30 Source of Information: Reports: Patient History Limitations: Reports: No Limitations - History of Present Illness INITIAL COMMENTS - FREE TEXT/NARRATIVE: 77-year-old with history of dementia, recurrent UTIs presents with concerns of nausea, vomiting, and altered mental status. He is here with his . Due to underlying dementia he is unable to provide history. reports that last night around 10 PM the patient began to have repetitive nausea and vomiting that lasted through the night. This was nonbilious and nonbloody. He's had no diarrhea. He is concerned of no pain. reports similar symptoms in the past when he had urinary infections. She has noted no fever. He does have chronic changes due to venous stasis of his lower extremities, however the left leg is more red and warm than usual. - Related Data Allergies Allergy/AdvReac Type Severity Reaction Status Date / Time adhesive Allergy Severe Rash Verified 07/29/18 10:28 ciprofloxacin [From Cipro] Allergy Severe Edema Verified 07/29/18 10:28 ciprofloxacin HCl Allergy Severe Edema Verified 07/29/18 10:28 [From Cipro] Home Meds: Home Meds Aspirin [Adult Low Dose Aspirin EC] 81 mg PO DAILY 03/21/13 [History] EPINEPHrine [Epipen] 0.3 mg IM DAILY PRN 03/21/13 [History] HCTZ/Triamterene [Maxzide 25-37.5 MG] 1 tab PO DAILY 03/21/13 [History] Insulin Aspart [Novolog Flexpen] 60 unit SQ TIDMEALS 03/21/13 [History] Insulin Detemir [Levemir Flexpen] 90 unit SQ BID 03/21/13 [History] Metoprolol Succinate [Toprol XL] 50 mg PO BID 03/21/13 [History] Multivitamin [Multi-Vitamin Daily] 1 each PO DAILY 03/21/13 [History] Simvastatin [Zocor] 20 mg PO BEDTIME 03/21/13 [History] metFORMIN HCl [Fortamet] 1,000 mg PO BID 03/21/13 [History] Gemfibrozil [Lopid] 600 mg PO BIDAC #60 tablet 08/16/13 [Rx] amLODIPine [Norvasc] 5 mg PO DAILY #30 tablet 08/16/13 [Rx] Furosemide [Lasix] 40 mg PO DAILY 02/01/18 [History] Fexofenadine [Vera] 180 mg PO DAILY 02/28/18 [History] Tamsulosin [Flomax] 0.4 mg PO PCBREAKFAST #30 cap.er 03/01/18 [Rx] Acetaminophen [Tylenol Extra Strength] 1,000 mg PO TID PRN 03/12/18 [History] Ibuprofen 800 mg PO TID PRN 03/12/18 [History] Moxifloxacin [Vigamox 0.5% Ophth Soln] 1 drop EYERT QID 03/12/18 [History] Prednisolone Acetate/Pf [Prednisolone Acet 1% Eye Drop] 1 drop EYERT QID [History] Past Medical History HEENT History: Reports: Cataract, Hard of Hearing, Impaired Vision, Other (See Below) Other HEENT History: No teeth Cardiovascular History: Reports: High Cholesterol, Hypertension Gastrointestinal History: Reports: None Genitourinary History: Reports: Urinary Incontinence Neurological History: Reports: Other (See Below) Other Neuro History: spouse says that pt. was diagnosed with dementia about 2.5 years ago. 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 unable to read or writel Possible dementia. Endocrine/Metabolic History: Reports: Diabetes, Type II, Obesity/BMI 30+ Dermatologic History: Reports: Cellulitis Other Dermatologic History: lower ext. cellulitis - Infectious Disease History Infectious Disease History: Reports: Chicken Pox, Measles, Mumps - Past Surgical History HEENT Surgical History: Reports: Cataract Surgery, Eye Surgery GI Surgical History: Reports: Appendectomy Male Surgical History: Reports: None Neurological Surgical History: Reports: None Social & Family History - Tobacco Use Smoking Status *Q: Former Smoker Used Tobacco, but Quit: Yes Month/Year Tobacco Last Used: 30years - Caffeine Use Caffeine Use: Reports: Coffee - Recreational Drug Use Recreational Drug Use: No - Living Situation & Occupation Living situation: Reports: , with Family Occupation: Retired (Lives with [place] in [place], [place]. 2 children, 3 stepchildren) ED ROS GENERAL - Review of Systems Review Of Systems: Unable To Obtain ED EXAM, GI/ABD - Physical Exam Exam: See Below Exam Limited By: No Limitations General Appearance: Alert, No Apparent Distress Ears: Normal External Exam Nose: Normal Inspection Throat/Mouth: Normal Inspection Head: Atraumatic, Normocephalic Neck: Normal Inspection Respiratory/Chest: No Respiratory Distress, Lungs Clear Cardiovascular: Normal Peripheral Pulses GI/Abdominal Exam: Normal Bowel Sounds, Soft, Non-Tender Extremities: Other (increased erythema and warmth of the left leg up to just below the knee) Neurological: Alert, Other (non-verbal. follows commands. moving all extremities ) Course - Vital Signs Last Recorded V/S: Last Vital Signs Temp 36.6 C 07/29/18 11:12 Pulse 77 07/29/18 11:12 Resp 16 07/29/18 11:12 BP 162/64 H 07/29/18 11:12 Pulse Ox 93 L 07/29/18 11:12 - Orders/Labs/Meds Orders: Active Orders 24 hr Category Date Time Status CULTURE BLOOD [BC] Stat Lab 07/29/18 10:45 Received CULTURE BLOOD [BC] Stat Lab 07/29/18 10:50 Received CULTURE URINE [RM] Stat Lab 07/29/18 10:46 Ordered UA W/MICROSCOPIC [URIN] Stat Lab 07/29/18 10:49 Ordered Piperacillin/Tazobactam [Zosyn] 4.5 gm Med 07/29/18 11:00 Active Sodium Chloride 0.9% [Normal Saline] 50 ml IV Q6H Blood Culture x2 Reflex Set [OM.PC] Stat Oth 07/29/18 10:46 Ordered Medication Orders Piperacillin Sod/Tazobactam (Sod 4.5 gm/ Sodium Chloride) 50 mls @ 100 mls/hr IV Q6H AMBAR Last Admin: 07/29/18 11:23 Dose: 100 mls/hr Labs: Laboratory Tests 07/29/18 07/29/18 07/29/18 Range/Units 10:59 10:59 10:59 WBC 12.7 H (4.5-11.0) K/uL RBC 4.80 (4.30-5.90) M/uL Hgb 13.0 (12.0-15.0) g/dL Hct 39.2 L (40.0-54.0) % MCV 82 (80-98) fL MCH 27 (27-31) pg MCHC 33 (32-36) % Plt Count 167 (150-400) K/uL Neut % (Auto) 91 H (36-66) % Lymph % (Auto) 5 L (24-44) % [place] % (Auto) 4 (2-6) % Eos % (Auto) 0 L (2-4) % Baso % (Auto) 0 (0-1) % Sodium 138 L (140-148) mmol/L Potassium 3.2 L (3.6-5.2) mmol/L Chloride 98 L (100-108) mmol/L Carbon Dioxide 31 (21-32) mmol/L Anion Gap 12.2 (5.0-14.0) mmol/L BUN 24 H (7-18) mg/dL Creatinine 1.3 (0.8-1.3) mg/dL Est Cr Clr Drug Dosing 49.13 mL/min Estimated GFR (MDRD) 54 L (>60) Glucose 249 H (74-106) mg/dL Lactic Acid 3.0 H (0.4-2.0) mmol/L Calcium 9.5 (8.5-10.1) mg/dL Total Bilirubin 0.7 (0.2-1.0) mg/dL AST 25 (15-37) U/L ALT 25 (12-78) U/L Alkaline Phosphatase 45 L (46-116) U/L Total Protein 7.6 (6.4-8.2) g/dL Albumin 3.5 (3.4-5.0) g/dL Globulin 4.1 H (2.3-3.5) g/dL Albumin/Globulin Ratio 0.9 L (1.2-2.2) Lipase (73-393) U/L 07/29/18 Range/Units 10:59 WBC (4.5-11.0) K/uL RBC (4.30-5.90) M/uL Hgb (12.0-15.0) g/dL Hct (40.0-54.0) % MCV (80-98) fL MCH (27-31) pg MCHC (32-36) % Plt Count (150-400) K/uL Neut % (Auto) (36-66) % Lymph % (Auto) (24-44) % [place] % (Auto) (2-6) % Eos % (Auto) (2-4) % Baso % (Auto) (0-1) % Sodium (140-148) mmol/L Potassium (3.6-5.2) mmol/L Chloride (100-108) mmol/L Carbon Dioxide (21-32) mmol/L Anion Gap (5.0-14.0) mmol/L BUN (7-18) mg/dL Creatinine (0.8-1.3) mg/dL Est Cr Clr Drug Dosing mL/min Estimated GFR (MDRD) (>60) Glucose (74-106) mg/dL Lactic Acid (0.4-2.0) mmol/L Calcium (8.5-10.1) mg/dL Total Bilirubin (0.2-1.0) mg/dL AST (15-37) U/L ALT (12-78) U/L Alkaline Phosphatase (46-116) U/L Total Protein (6.4-8.2) g/dL Albumin (3.4-5.0) g/dL Globulin (2.3-3.5) g/dL Albumin/Globulin Ratio (1.2-2.2) Lipase 83 (73-393) U/L Meds: Medications Generic Name Dose Route Start Last Admin Trade Name Freq PRN Reason Stop Dose Admin Piperacillin Sod/Tazobactam 50 mls @ 100 mls/hr 07/29/18 11:00 07/29/18 11:23 Sod 4.5 gm/ Sodium Chloride IV 100 mls/hr Q6H AMBAR Administration Discontinued Medications Generic Name Dose Route Start Last Admin Trade Name Freq PRN Reason Stop Dose Admin Lactated Ringer's 1,000 mls @ 999 mls/hr 07/29/18 10:49 07/29/18 11:57 Ringers, Lactated IV 07/29/18 11:49 999 mls/hr BOLUS ONE Administration - Re-Assessments/Exams Free Text/Narrative Re-Assessment/Exam: 77 yo presents with concerns of altered mentation, nausea and vomiting. On exam here his heart rate blood pressure are stable. He was noted to desaturate into the high 80s on room air on my exam. Left lower extremity concern for possible cellulitis. Although he has been having nausea and vomiting his abdominal exam is benign, and his reports this is frequent response for him to systemic illness. Most concerned that his symptoms are due to early sepsis. Have ordered sepsis screening labs, chest x-ray, and we're dosing him with broad coverage antimicrobial (Zosyn). He does live at home with his and is having new difficulty with transfers/ ambulation, suspect this at a minimum will necessitate admission. 07/29/18 11:25 Free Text/Narrative Re-Assessment/Exam: Labs thus far remarkable for mild leukocytosis, lactate 3.0 Administering judicious fluid (< 30 ml/kg to start given normal vitals, borderline O2 sat) UA pending, will likely need straight cath CXR clean Admitted to hospitalist for suspected early sepsis and being acutely debilitated making him unsafe to return home 07/29/18 12:28 Departure - Departure Time of Disposition: 12:30 Disposition: Admitted As Inpatient 66 Clinical Impression: Infection, Lactate blood increased - Discharge Information Referrals: Shama Solis MD [Primary Care Provider] - Forms: ED Department Discharge - My Orders Last 24 Hours: My Active Orders 07/29/18 10:45 CULTURE BLOOD [BC] Stat 07/29/18 10:46 CULTURE URINE [RM] Stat Blood Culture x2 Reflex Set [OM.PC] Stat 07/29/18 10:49 UA W/MICROSCOPIC [URIN] Stat 07/29/18 10:50 CULTURE BLOOD [BC] Stat 07/29/18 11:00 Piperacillin/Tazobactam [Zosyn] 4.5 gm Sodium Chloride 0.9% [Normal Saline] 50 ml IV Q6H - Assessment/Plan Last 24 Hours: My Active Orders 07/29/18 10:45 CULTURE BLOOD [BC] Stat 07/29/18 10:46 CULTURE URINE [RM] Stat Blood Culture x2 Reflex Set [OM.PC] Stat 07/29/18 10:49 UA W/MICROSCOPIC [URIN] Stat 07/29/18 10:50 CULTURE BLOOD [BC] Stat 07/29/18 11:00 Piperacillin/Tazobactam [Zosyn] 4.5 gm Sodium Chloride 0.9% [Normal Saline] 50 ml IV Q6H
--- NOTE | 2018-07-29 11:49 | CRLCR ---
Clinical INDICATION: Infection. FINDINGS: The heart is magnified by the AP technique. When allowing for large patient size and relatively light radiographic technique, no focal infiltrate is identified. The pulmonary vasculature and pleural surfaces are unremarkable. There is mild hypertrophic spurring of the lower thoracic spine. IMPRESSION: No acute process identified. Dictated by Castillo Dobbs MD @ Jul 29 2018 11:46AM Signed by Dr. Castillo Dobbs @ Jul 29 2018 11:47AM
--- NOTE | 2018-07-29 13:11 | PCM.HP ---
H&P History of Present Illness - General Date of Service: 07/29/18 Admit Problem/Dx: Admission Diagnosis/Problem Admission Diagnosis/Problem Acute cystitis without hematuria Source of Information: Family, Provider. No: Patient History Limitations: Reports: Altered Mental Status (advanced dementia, lethargic ) - History of Present Illness Initial Comments - Free Text/Narative: CC: josé Preston presented to the emergency room with his by ambulance. He has dementia and is lethargic and is unable to provide any history at this time. His reports that about 24 hours ago she noticed that he was a little bit more tired than usual. Nothing else seemed to far out of the ordinary. Appetite was stable. Last night around 10 PM he developed nausea with vomiting. She reports approximately 15 episodes of vomiting throughout the course of the night. He has been rubbing his belly but has not endorsed any specific abdominal pain. He was very weak and had difficulty standing and more difficulty ambulating. He was incontinent of urine this morning. She is not aware of his last bowel movement may have been as many as 4 days ago. He had some chills yesterday and requested more close to keep it warm. He has not had anything to eat or drink since supper last night. She does not think he appears short of breath or uncomfortable at this time. He appears to be sleeping peacefully at the time of my evaluation. Workup in the emergency room has suggested acute cystitis with lethargy. Also noted was hyperglycemia. He does have a mildly elevated lactic acid but does not have other criteria for sepsis such as tachycardia, hypotension or tachypnea. He has received broad-spectrum antibiotics and cultures have been obtained. He has received 1 L of IV fluids. He will be admitted for further management. - Related Data Allergies/Adverse Reactions: Allergies Allergy/AdvReac Type Severity Reaction Status Date / Time adhesive Allergy Severe Rash Verified 07/29/18 10:28 ciprofloxacin [From Cipro] Allergy Severe Edema Verified 07/29/18 10:28 ciprofloxacin HCl Allergy Severe Edema Verified 07/29/18 10:28 [From Cipro] Home Medications: Home Meds Aspirin [Adult Low Dose Aspirin EC] 81 mg PO DAILY 03/21/13 [History] EPINEPHrine [Epipen] 0.3 mg IM DAILY PRN 03/21/13 [History] HCTZ/Triamterene [Maxzide 25-37.5 MG] 1 tab PO DAILY 03/21/13 [History] Insulin Aspart [Novolog Flexpen] 51 unit SQ BID 03/21/13 [History] Insulin Detemir [Levemir Flexpen] 51 unit SQ BID 03/21/13 [History] Metoprolol Succinate [Toprol XL] 50 mg PO BID 03/21/13 [History] Multivitamin [Multi-Vitamin Daily] 1 each PO DAILY 03/21/13 [History] Simvastatin [Zocor] 20 mg PO BEDTIME 03/21/13 [History] metFORMIN HCl [Fortamet] 1,000 mg PO BID 03/21/13 [History] Gemfibrozil [Lopid] 600 mg PO BIDAC #60 tablet 08/16/13 [Rx] amLODIPine [Norvasc] 5 mg PO DAILY #30 tablet 08/16/13 [Rx] Furosemide [Lasix] 40 mg PO DAILY 02/01/18 [History] Fexofenadine [Vera] 180 mg PO DAILY 02/28/18 [History] Tamsulosin [Flomax] 0.4 mg PO PCBREAKFAST #30 cap.er 03/01/18 [Rx] Acetaminophen [Tylenol Extra Strength] 1,000 mg PO TID PRN 03/12/18 [History] Ibuprofen 800 mg PO TID PRN 03/12/18 [History] Moxifloxacin [Vigamox 0.5% Ophth Soln] 1 drop EYERT QID 03/12/18 [History] Prednisolone Acetate/Pf [Prednisolone Acet 1% Eye Drop] 1 drop EYERT QID [History] Past Medical History HEENT History: Reports: Cataract, Hard of Hearing, Impaired Vision, Other (See Below) Other HEENT History: No teeth Cardiovascular History: Reports: High Cholesterol, Hypertension Gastrointestinal History: Reports: None Genitourinary History: Reports: Urinary Incontinence Neurological History: Reports: Other (See Below) Other Neuro History: spouse says that pt. was diagnosed with dementia about 2.5 years ago. 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 unable to read or writel Possible dementia. Endocrine/Metabolic History: Reports: Diabetes, Type II, Obesity/BMI 30+ Dermatologic History: Reports: Cellulitis Other Dermatologic History: lower ext. cellulitis - Infectious Disease History Infectious Disease History: Reports: Chicken Pox, Measles, Mumps - Past Surgical History HEENT Surgical History: Reports: Cataract Surgery, Eye Surgery GI Surgical History: Reports: Appendectomy Male Surgical History: Reports: None Neurological Surgical History: Reports: None Social & Family History - Family History Family Medical History: Unobtainable - Tobacco Use Smoking Status *Q: Former Smoker Used Tobacco, but Quit: Yes Month/Year Tobacco Last Used: 30years - Caffeine Use Caffeine Use: Reports: Coffee - Recreational Drug Use Recreational Drug Use: No - Living Situation & Occupation Living situation: Reports: , with Family Occupation: Retired (Lives with [place] in [place], [place]. 2 children, 3 stepchildren) H&P Review of Systems - Review of Systems: Review Of Systems: Unable To Obtain (advanced dementia, lethargic) Exam - Exam Exam: See Below - Vital Signs Vital Signs: Last Vital Signs Temp 36.6 C 07/29/18 11:12 Pulse 77 07/29/18 11:12 Resp 16 07/29/18 11:12 BP 162/64 H 07/29/18 11:12 Pulse Ox 93 L 07/29/18 11:12 Weight: 95.254 kg - Exam Quality Assessment: No: Supplemental Oxygen General: Lethargic. No: Alert, Cooperative, Mild Distress HEENT: Conjunctiva Clear. No: Mucosa Moist & Ceiba (dry), Scleral Icterus Neck: Supple, Trachea Midline. No: Lymphadenopathy Lungs: Clear to Auscultation, Normal Respiratory Effort Cardiovascular: Regular Rate, Regular Rhythm. No: Systolic Murmur GI/Abdominal Exam: Normal Bowel Sounds, Soft, Non-Tender, Distended (mild) Extremities: Pedal Edema (chronic venous stasis with impressive stasis change and icthyosis ), Increased Warmth (left upper portion of lower leg ) Skin: Warm, Dry, Other (blood filled vesicle distal right great toe) Neuro Extensive - Mental Status: No: Alert, Oriented x3, Nl Response to Commands Neuro Extensive - Motor, Sensory, Reflexes: No: Abnormal Motor, Tremor Psychiatric: No: Alert, Agitated - Patient Data Lab Results Last 24 hrs: Laboratory Results - last 24 hr 07/29/18 07/29/18 07/29/18 Range/Units 10:59 10:59 10:59 WBC 12.7 H (4.5-11.0) K/uL RBC 4.80 (4.30-5.90) M/uL Hgb 13.0 (12.0-15.0) g/dL Hct 39.2 L (40.0-54.0) % MCV 82 (80-98) fL MCH 27 (27-31) pg MCHC 33 (32-36) % Plt Count 167 (150-400) K/uL Neut % (Auto) 91 H (36-66) % Lymph % (Auto) 5 L (24-44) % [place] % (Auto) 4 (2-6) % Eos % (Auto) 0 L (2-4) % Baso % (Auto) 0 (0-1) % Sodium 138 L (140-148) mmol/L Potassium 3.2 L (3.6-5.2) mmol/L Chloride 98 L (100-108) mmol/L Carbon Dioxide 31 (21-32) mmol/L Anion Gap 12.2 (5.0-14.0) mmol/L BUN 24 H (7-18) mg/dL Creatinine 1.3 (0.8-1.3) mg/dL Est Cr Clr Drug Dosing 49.13 mL/min Estimated GFR (MDRD) 54 L (>60) Glucose 249 H (74-106) mg/dL Lactic Acid 3.0 H (0.4-2.0) mmol/L Calcium 9.5 (8.5-10.1) mg/dL Total Bilirubin 0.7 (0.2-1.0) mg/dL AST 25 (15-37) U/L ALT 25 (12-78) U/L Alkaline Phosphatase 45 L (46-116) U/L Total Protein 7.6 (6.4-8.2) g/dL Albumin 3.5 (3.4-5.0) g/dL Globulin 4.1 H (2.3-3.5) g/dL Albumin/Globulin Ratio 0.9 L (1.2-2.2) Lipase (73-393) U/L 07/29/18 Range/Units 10:59 WBC (4.5-11.0) K/uL RBC (4.30-5.90) M/uL Hgb (12.0-15.0) g/dL Hct (40.0-54.0) % MCV (80-98) fL MCH (27-31) pg MCHC (32-36) % Plt Count (150-400) K/uL Neut % (Auto) (36-66) % Lymph % (Auto) (24-44) % [place] % (Auto) (2-6) % Eos % (Auto) (2-4) % Baso % (Auto) (0-1) % Sodium (140-148) mmol/L Potassium (3.6-5.2) mmol/L Chloride (100-108) mmol/L Carbon Dioxide (21-32) mmol/L Anion Gap (5.0-14.0) mmol/L BUN (7-18) mg/dL Creatinine (0.8-1.3) mg/dL Est Cr Clr Drug Dosing mL/min Estimated GFR (MDRD) (>60) Glucose (74-106) mg/dL Lactic Acid (0.4-2.0) mmol/L Calcium (8.5-10.1) mg/dL Total Bilirubin (0.2-1.0) mg/dL AST (15-37) U/L ALT (12-78) U/L Alkaline Phosphatase (46-116) U/L Total Protein (6.4-8.2) g/dL Albumin (3.4-5.0) g/dL Globulin (2.3-3.5) g/dL Albumin/Globulin Ratio (1.2-2.2) Lipase 83 (73-393) U/L Result Diagrams: 07/29/18 10:59 07/29/18 10:59 Imaging Impressions Last 24 hrs: CXR - images personally reviewed - lungs are clear with no mass, effusion or infiltrate. Heart size is normal. *Q Meaningful Use (ADM) - VTE *Q VTE Mechanical Contraindications *Q: Bilateral Lower Edema - VTE Risk Assess *Q Each Risk Factor Represents 1 Point: Swollen Legs, Current, Obesity ( BMI > 25 kg/m2) Total Score 1 Point Risk Factors: 2 Each Risk Factor Represents 2 Points: None Total Score 2 Point Risk Factors: 0 Each Risk Factor Represents 3 Points: Age 75 Years or Greater Total Score 3 Point Risk Factors: 3 Each Risk Factor Represents 5 Points: None Total Score 5 Point Risk Factors: 0 Venous Thromboembolism Risk Factor Score *Q: 5 - Problem List (1) Acute cystitis without hematuria SNOMED Code(s): 46921213 ICD Code: N30.00 - ACUTE CYSTITIS WITHOUT HEMATURIA Status: Acute Current Visit: Yes (2) Hypokalemia SNOMED Code(s): 94007187 ICD Code: E87.6 - HYPOKALEMIA Status: Acute Priority: Medium Current Visit: No (3) Diabetes mellitus type 2 SNOMED Code(s): 18788344 ICD Code: E11.9 - TYPE 2 DIABETES MELLITUS WITHOUT COMPLICATIONS Status: Chronic Priority: Medium Current Visit: No (4) Dementia without behavioral disturbance SNOMED Code(s): 03641496 ICD Code: F03.90 - UNSPECIFIED DEMENTIA WITHOUT BEHAVIORAL DISTURBANCE Status: Chronic Current Visit: Yes Qualifiers: Dementia type: Alzheimer's disease Alzheimer's disease onset: late-onset Qualified Code(s): G30.1 - Alzheimer's disease with late onset; F02.80 - Dementia in other diseases classified elsewhere without behavioral disturbance (5) Edema of both legs SNOMED Code(s): 429003014, 31932403, 511885092 ICD Code: R60.0 - LOCALIZED EDEMA Status: Chronic Current Visit: No Problem List Initiated/Reviewed/Updated: Yes Orders Last 24hrs: Active Orders 24 hr Category Date Time Status Patient Status Manage Transfer [TRANSFER] Routine ADT 07/29/18 12:57 Ordered Insert Leo Catheter [Insert Urinary Catheter] [OM.PC] Care 07/29/18 13:00 Ordered Q24H Urinary Catheter Assessment [RC] ASDIRECTED Care 07/29/18 12:55 Active CULTURE BLOOD [BC] Stat Lab 07/29/18 10:45 Received CULTURE BLOOD [BC] Stat Lab 07/29/18 10:50 Received CULTURE URINE [RM] Stat Lab 07/29/18 13:04 Received UA W/MICROSCOPIC [URIN] Stat Lab 07/29/18 13:04 Received Piperacillin/Tazobactam [Zosyn] 4.5 gm Med 07/29/18 11:00 Active Sodium Chloride 0.9% [Normal Saline] 50 ml IV Q6H Blood Culture x2 Reflex Set [OM.PC] Stat Oth 07/29/18 10:46 Ordered Resuscitation Status Routine Resus Stat 07/29/18 12:59 Ordered Medication Orders Piperacillin Sod/Tazobactam (Sod 4.5 gm/ Sodium Chloride) 50 mls @ 100 mls/hr IV Q6H AMBAR Last Admin: 07/29/18 11:23 Dose: 100 mls/hr Assessment/Plan Comment:: ASSESSMENT AND PLAN - Probable acute cystitis - symptoms consistent with previous urinary tract infection, urine moderately suggestive of infection with moderate bacteria. This could explain his nausea with vomiting. Only other potential sources could be mild cellulitis of the left lower leg. Cultures have been obtained. -Continue Pip/Tazo -Follow-up cultures -IV fluids -Repeat lactic acid level Hypokalemia - planning to supplement this afternoon and recheck in the morning Insulin-dependent diabetes mellitus - on fairly high dose of insulin at home. His reports that she is able to get doses in the morning and at bedtime but he often declines his lunchtime dose. -Decrease dosing of long-acting insulin with poor oral intake -Continue mealtime insulin with a decrease in dose -Sliding-scale coverage -Continue metformin Alzheimer's disease without behavioral disturbance - no behavior issues at this time. Patient currently lethargic. -Melatonin at bedtime Maintenance issues - - DVT prophylaxis - enoxaparin - GI prophylaxis - not indicated - Nutrition - diabetic - Leo catheter - placed in the emergency room for strict intake and output monitoring, patient also incontinent CODE STATUS - DNR/DNI - discussed with , patient has advanced directive Admission justification - This patient will be admitted for inpatient services and is medically appropriate meeting medical necessity for inpatient admission as outlined in my documentation. I reasonably expect the patient will require inpatient services that span a period time over 2 midnights. I reasonably expect this patient to be discharged or transferred within 96 hours after admission to the [facility]. Disposition - I would anticipate discharge home with home health care after the hospital stay Primary care physician - Shama Childers M.D.
[2018-07-29] MEDS ORDERED: LORazepam 2 MG/ML SDV IVPUSH PRN (13:48)
[2018-07-29] MEDS ORDERED: Ondansetron 4 MG Tab.DIS PO PRN (13:48)
[2018-07-29] MEDS ORDERED: Ibuprofen 600 MG Tab PO PRN (13:48)
[2018-07-29] MEDS ORDERED: Acetaminophen 325 MG Tab PO PRN (13:48)
[2018-07-29] MEDS ORDERED: Ondansetron 4 MG/2 ML SDV IV PRN (13:48)
[2018-07-29] MEDS ORDERED: Magnesium Hydroxide 400 MG/5 ML Susp 30 ML Cup PO PRN (13:48)
[2018-07-29] MEDS: Sodium Chloride 0.9% 1,000 ML IV SCH ×2 (14:37→22:07)
[2018-07-29] MEDS: Potassium Chloride 20 MEQ, Lidocaine 1% 2 ML in Sodium Chloride 0.9% 100 ML IV SCH ×2 (15:43→18:22)
[2018-07-29] MEDS ORDERED: Moxifloxacin 0.5% Ophth Soln 3 ML Bottle EYERT SCH (16:00)
[2018-07-29] MEDS ORDERED: Non-Formulary Medication 1 Each (Prednisolone Acetate/Pf [Prednisolone Acet 1% Eye Drop] 1 EYERT SCH (16:00)
[2018-07-29] MEDS: Insulin Lispro 100 Unit/ML 3 ML KwikPen SUBCUT SCH ×3 (17:06→21:12)
[2018-07-29] MEDS: metFORMIN 500 MG Tab PO SCH (17:07)
[2018-07-29] MEDS: Piperacillin/Tazobactam/Dext 3.375 GM in Premix Bag 1 BAG IV SCH ×2 (17:50→23:33)
[2018-07-29] MEDS ORDERED: Non-Formulary Medication 1 Each (Metformin Hcl [Fortamet] 1,000 MG) PO SCH (21:00)
[2018-07-29] MEDS: Melatonin 3 MG Tab PO SCH (21:10)
[2018-07-29] MEDS: Metoprolol Succinate 50 MG Tab.ER PO SCH (21:11)
[2018-07-29] MEDS: Lactobacillus Rhamnosus GG (Probiotic) Cap PO SCH (21:11)
[2018-07-29] MEDS: Insulin Glargine,Human Rec. Analog 100 Units/ML 3 ML Pen SUBCUT SCH (21:13)
[2018-07-30] MEDS: Piperacillin/Tazobactam/Dext 3.375 GM in Premix Bag 1 BAG IV SCH ×3 (04:22→16:39)
[2018-07-30] MEDS: Sodium Chloride 0.9% 1,000 ML IV SCH (07:05)
[2018-07-30] MEDS: Insulin Lispro 100 Unit/ML 3 ML KwikPen SUBCUT SCH ×7 (08:11→21:46)
[2018-07-30] MEDS: Insulin Glargine,Human Rec. Analog 100 Units/ML 3 ML Pen SUBCUT SCH ×2 (08:11→21:44)
[2018-07-30] MEDS: amLODIPine 5 MG Tab PO SCH (08:13)
[2018-07-30] MEDS: metFORMIN 500 MG Tab PO SCH ×2 (08:13→17:11)
[2018-07-30] MEDS: Hydrochlorothiazide/Triamterene 25-37.5 Tab PO SCH (08:13)
[2018-07-30] MEDS: Metoprolol Succinate 50 MG Tab.ER PO SCH ×2 (08:13→20:32)
[2018-07-30] MEDS: Aspirin 81 MG Tab.EC PO SCH (08:14)
[2018-07-30] MEDS: Enoxaparin 40 MG/0.4 ML Syringe SUBCUT SCH (08:14)
[2018-07-30] MEDS: Tamsulosin 0.4 MG Cap.ER PO SCH (08:14)
[2018-07-30] MEDS: Lactobacillus Rhamnosus GG (Probiotic) Cap PO SCH ×2 (08:14→20:33)
[2018-07-30] MEDS ORDERED: Potassium Chloride 20 MEQ Tab.ER PO ONE ×2 (09:45→17:00)
--- NOTE | 2018-07-30 13:08 | PCM.PN ---
- General Info Date of Service: 07/30/18 Subjective Update: Mr. Hernandez is a 77-year-old gentleman who was admitted through the emergency department with weakness and fever. Initially was felt to have urinary tract infection but urine is coming back clear. White blood cell count has normalized with antibiotic therapy and he has remained afebrile. Most likely source of recent infection would be his feet and legs with severe and chronic peripheral edema and venous stasis. Functional Status: Reports: Pain Controlled, Tolerating Diet, Ambulating, Urinating - Review of Systems General: Reports: Weakness. Denies: Fever, Chills Pulmonary: Reports: No Symptoms Cardiovascular: Reports: No Symptoms Gastrointestinal: Reports: No Symptoms - Patient Data Vitals - Most Recent: Last Vital Signs Temp 96.4 F 07/30/18 11:21 Pulse 62 07/30/18 11:21 Resp 18 07/30/18 11:21 BP 131/62 07/30/18 11:21 Pulse Ox 95 07/30/18 11:21 Weight - Most Recent: 267 lb I&O - Last 24 Hours: Intake & Output 07/29/18 07/30/18 07/30/18 22:59 06:59 14:59 Intake Total 900 1606 Output Total 1000 700 Balance -100 906 Lab Results Last 24 Hours: Laboratory Results - last 24 hr 07/29/18 07/29/18 07/30/18 Range/Units 13:04 16:08 04:30 WBC 9.7 (4.5-11.0) K/uL RBC 4.05 L (4.30-5.90) M/uL Hgb 11.0 L D (12.0-15.0) g/dL Hct 34.0 L (40.0-54.0) % MCV 84 (80-98) fL MCH 27 (27-31) pg MCHC 32 (32-36) % Plt Count 143 L (150-400) K/uL Sodium (140-148) mmol/L Potassium (3.6-5.2) mmol/L Chloride (100-108) mmol/L Carbon Dioxide (21-32) mmol/L Anion Gap (5.0-14.0) mmol/L BUN (7-18) mg/dL Creatinine (0.8-1.3) mg/dL Est Cr Clr Drug Dosing mL/min Estimated GFR (MDRD) (>60) Glucose (74-106) mg/dL Lactic Acid 1.8 (0.4-2.0) mmol/L Calcium (8.5-10.1) mg/dL Urine Color Yellow Urine Appearance Slightly cloudy Urine pH 5.0 (4.5-8.0) Ur Specific [place] 1.020 (1.008-1.030) Urine Protein 30 H (NEGATIVE) mg/dL Urine Glucose (UA) 100 H (NEGATIVE) mg/dL Urine Ketones Negative (NEGATIVE) mg/dL Urine Occult Blood Negative (NEGATIVE) Urine Nitrite Negative (NEGAITVE) Urine Bilirubin Negative (NEGATIVE) Urine Urobilinogen Normal (NORMAL) mg/dL Ur Leukocyte Esterase Negative (NEGATIVE) Urine RBC Not seen (0-5) Urine WBC 0-5 (0-5) Ur Epithelial Cells Not seen Amorphous Sediment Many Urine Bacteria Moderate Urine Mucus Not seen 07/30/18 Range/Units 04:30 WBC (4.5-11.0) K/uL RBC (4.30-5.90) M/uL Hgb (12.0-15.0) g/dL Hct (40.0-54.0) % MCV (80-98) fL MCH (27-31) pg MCHC (32-36) % Plt Count (150-400) K/uL Sodium 138 L (140-148) mmol/L Potassium 3.2 L (3.6-5.2) mmol/L Chloride 100 (100-108) mmol/L Carbon Dioxide 32 (21-32) mmol/L Anion Gap 9.2 (5.0-14.0) mmol/L BUN 23 H (7-18) mg/dL Creatinine 1.1 (0.8-1.3) mg/dL Est Cr Clr Drug Dosing 58.07 mL/min Estimated GFR (MDRD) > 60 (>60) Glucose 215 H (74-106) mg/dL Lactic Acid (0.4-2.0) mmol/L Calcium 8.9 (8.5-10.1) mg/dL Urine Color Urine Appearance Urine pH (4.5-8.0) Ur Specific [place] (1.008-1.030) Urine Protein (NEGATIVE) mg/dL Urine Glucose (UA) (NEGATIVE) mg/dL Urine Ketones (NEGATIVE) mg/dL Urine Occult Blood (NEGATIVE) Urine Nitrite (NEGAITVE) Urine Bilirubin (NEGATIVE) Urine Urobilinogen (NORMAL) mg/dL Ur Leukocyte Esterase (NEGATIVE) Urine RBC (0-5) Urine WBC (0-5) Ur Epithelial Cells Amorphous Sediment Urine Bacteria Urine Mucus Fei Results Last 24 Hours: Microbiology 07/29/18 10:50 Aerobic Blood Culture - Preliminary Blood - Arm, Right NO GROWTH AFTER 1 DAY Anaerobic Blood Culture - Preliminary NO GROWTH AFTER 1 DAY 07/29/18 10:45 Aerobic Blood Culture - Preliminary Blood - Venous - Iv Start NO GROWTH AFTER 1 DAY Anaerobic Blood Culture - Preliminary NO GROWTH AFTER 1 DAY Med Orders - Current: Current Medications Acetaminophen (Tylenol) 650 mg PO Q4H PRN PRN Reason: Pain (Mild 1-3)/fever Last Admin: 07/29/18 21:18 Dose: 650 mg Albuterol (Proventil Neb Soln) 2.5 mg NEB Q4H PRN PRN Reason: Shortness Of Breath/wheezing Amlodipine Besylate (Norvasc) 5 mg PO DAILY [facility] Last Admin: 07/30/18 08:13 Dose: 5 mg Aspirin (Halfprin) 81 mg PO DAILY [facility] Last Admin: 07/30/18 08:14 Dose: 81 mg Enoxaparin Sodium (Lovenox) 40 mg SUBCUT DAILY [facility] Last Admin: 07/30/18 08:14 Dose: 40 mg Piperacillin/Tazobactam/ (Dextrose 3.375 gm/ Premix) 50 mls @ 100 mls/hr IV Q6H [facility] Last Admin: 07/30/18 10:09 Dose: 100 mls/hr Ibuprofen (Motrin) 600 mg PO Q6H PRN PRN Reason: Pain/Fever Insulin Glargine (Lantus Solostar) 35 units SUBCUT BID [facility] Last Admin: 07/30/18 08:11 Dose: 35 units Insulin Human Lispro (Humalog) 20 unit SUBCUT TIDMEALS [facility] Last Admin: 07/30/18 12:05 Dose: 20 unit Insulin Human Lispro (Humalog) 0 unit SUBCUT QIDACANDBED [facility]; Protocol Last Admin: 07/30/18 12:06 Dose: 6 units Lactobacillus Rhamnosus (Culturelle) 1 cap PO BID [facility] Last Admin: 07/30/18 08:14 Dose: 1 cap Lorazepam (Ativan) 0.5 mg IVPUSH Q4H PRN PRN Reason: Nausea/Vomiting Magnesium Hydroxide (Milk Of Magnesia) 30 ml PO Q12H PRN PRN Reason: Constipation Melatonin (Melatonin) 9 mg PO BEDTIME [facility] Last Admin: 07/29/18 21:10 Dose: 9 mg Metformin HCl (Glucophage) 1,000 mg PO BIDMEALS [facility] Last Admin: 07/30/18 08:13 Dose: 1,000 mg Metoprolol Succinate (Toprol Xl) 50 mg PO BID [facility] Last Admin: 07/30/18 08:13 Dose: 50 mg Ondansetron HCl (Zofran Odt) 4 mg PO Q6H PRN PRN Reason: Nausea able to take PO Ondansetron HCl (Zofran) 4 mg IV Q6H PRN PRN Reason: Nausea/Vomiting Last Admin: 07/29/18 14:17 Dose: 4 mg Potassium Chloride (Klor-Con M20) 40 meq PO ONETIME ONE Stop: 07/30/18 17:01 Senna/Docusate Sodium (Senna Plus) 1 tab PO BID PRN PRN Reason: Constipation Tamsulosin HCl (Flomax) 0.4 mg PO PCBREAKFAST [facility] Last Admin: 07/30/18 08:14 Dose: 0.4 mg Triamterene/HCTZ (Maxzide 25-37.5 Mg) 1 each PO DAILY [facility] Last Admin: 07/30/18 08:13 Dose: 1 each Discontinued Medications Piperacillin Sod/Tazobactam (Sod 4.5 gm/ Sodium Chloride) 50 mls @ 100 mls/hr IV Q6H [facility] Last Admin: 07/29/18 11:23 Dose: 100 mls/hr Lactated Ringer's (Ringers, Lactated) 1,000 mls @ 999 mls/hr IV BOLUS ONE Stop: 07/29/18 11:49 Last Admin: 07/29/18 11:57 Dose: 999 mls/hr Sodium Chloride (Normal Saline) 1,000 mls @ 125 mls/hr IV ASDIRECTED [facility] Last Admin: 07/30/18 07:05 Dose: 125 mls/hr Potassium Chloride 20 meq/Lidocaine HCl 2 ml/ Sodium Chloride 112 mls @ 56 mls/ hr IV Q2H [facility] Stop: 07/29/18 18:29 Last Admin: 07/29/18 18:22 Dose: 56 mls/hr Moxifloxacin HCl (Vigamox 0.5% Ophth Soln) ml EYERT QID [facility] Non-Formulary Medication (Prednisolone Acetate/Pf [Prednisolone Acet 1% Eye Drop ]) 1 drop EYERT QID [facility] Last Admin: 07/29/18 17:53 Dose: Not Given Potassium Chloride (Klor-Con M20) 40 meq PO ONETIME ONE Stop: 07/30/18 09:46 Last Admin: 07/30/18 10:09 Dose: 40 meq - Exam Quality Assessment: DVT Prophylaxis General: Alert, Cooperative, No Acute Distress. No: Oriented Lungs: Clear to Auscultation, Normal Respiratory Effort Cardiovascular: Regular Rate, Regular Rhythm, No Murmurs GI/Abdominal Exam: Soft, Non-Tender, No Organomegaly, No Distention Extremities: Non-Tender, Pedal Edema - Problem List Review Problem List Initiated/Reviewed/Updated: Yes - My Orders Last 24 Hours: My Active Orders 07/30/18 13:02 Convert IV to Saline Lock [OM.PC] Routine 07/30/18 17:00 Potassium Chloride [Klor-Con M20] 40 meq PO ONETIME ONE 07/31/18 05:00 BASIC METABOLIC PANEL,BMP [CHEM] Timed - Plan Plan:: ASSESSMENT AND PLAN - Cellulitis - This could explain his nausea with vomiting. He has improved since admission with normalization of white blood cell count and has remained afebrile. Lactic acid level elevated on admission likely secondary to dehydration, resolved and normalized on follow-up -Continue Pip/Tazo -Follow-up cultures -Saline lock IV Hypokalemia -Oral potassium replacement -Recheck potassium level in a.m. Insulin-dependent diabetes mellitus - on fairly high dose of insulin at home. His reports that she is able to get doses in the morning and at bedtime but he often declines his lunchtime dose. -Resume usual home regimen -Sliding-scale coverage -Continue metformin Alzheimer's disease without behavioral disturbance - no behavior issues at this time. Patient currently lethargic. -Melatonin at bedtime Maintenance issues - - DVT prophylaxis - enoxaparin - GI prophylaxis - not indicated - Nutrition - diabetic - Leo catheter - placed in the emergency room for strict intake and output monitoring, patient also incontinent CODE STATUS - DNR/DNI - discussed with , patient has advanced directive Admission justification - This patient will be admitted for inpatient services and is medically appropriate meeting medical necessity for inpatient admission as outlined in my documentation. I reasonably expect the patient will require inpatient services that span a period time over 2 midnights. I reasonably expect this patient to be discharged or transferred within 96 hours after admission to the [facility]. Disposition - I would anticipate discharge home with home health care after the hospital stay Primary care physician - Shama Solis MD
[2018-07-30] MEDS ORDERED: Insulin Lispro 100 Unit/ML 3 ML KwikPen SUBCUT SCH (17:00)
[2018-07-30] MEDS: Melatonin 3 MG Tab PO SCH (20:33)
[2018-07-31] MEDS: Piperacillin/Tazobactam/Dext 3.375 GM in Premix Bag 1 BAG IV SCH ×3 (00:04→11:11)
[2018-07-31] MEDS: Insulin Lispro 100 Unit/ML 3 ML KwikPen SUBCUT SCH ×6 (07:37→21:26)
[2018-07-31] MEDS: metFORMIN 500 MG Tab PO SCH ×2 (07:47→16:27)
[2018-07-31] MEDS: Albuterol 0.083% 2.5 MG/3 ML Neb Soln NEB PRN ×2 (07:47→23:21)
[2018-07-31] MEDS: Tamsulosin 0.4 MG Cap.ER PO SCH (08:47)
[2018-07-31] MEDS: Metoprolol Succinate 50 MG Tab.ER PO SCH ×2 (08:47→21:24)
[2018-07-31] MEDS: amLODIPine 5 MG Tab PO SCH (08:48)
[2018-07-31] MEDS: Lactobacillus Rhamnosus GG (Probiotic) Cap PO SCH ×2 (08:49→21:24)
[2018-07-31] MEDS: Hydrochlorothiazide/Triamterene 25-37.5 Tab PO SCH (08:49)
[2018-07-31] MEDS: Aspirin 81 MG Tab.EC PO SCH (08:49)
[2018-07-31] MEDS: Enoxaparin 40 MG/0.4 ML Syringe SUBCUT SCH (09:16)
[2018-07-31] MEDS: Insulin Glargine,Human Rec. Analog 100 Units/ML 3 ML Pen SUBCUT SCH ×2 (09:18→21:27)
--- NOTE | 2018-07-31 13:03 | PCM.PN ---
- General Info Date of Service: 07/31/18 Subjective Update: Mr. Hernandez has been stable over the last 24 hours with no significant temperature elevations. Respiratory status also is remained stable. He is unable to provide meaningful information concerning symptoms or review of systems because of his underlying dementia. - Patient Data Vitals - Most Recent: Last Vital Signs Temp 96.5 F 07/31/18 11:00 Pulse 74 07/31/18 11:00 Resp 20 07/31/18 11:00 BP 153/60 H 07/31/18 11:00 Pulse Ox 94 L 07/31/18 11:00 Weight - Most Recent: 266 lb 15.994 oz I&O - Last 24 Hours: Intake & Output 07/30/18 07/31/18 07/31/18 22:59 06:59 14:59 Intake Total 720 200 530 Balance 720 200 530 Lab Results Last 24 Hours: Laboratory Results - last 24 hr 07/31/18 Range/Units 06:01 Sodium 141 (140-148) mmol/L Potassium 3.7 (3.6-5.2) mmol/L Chloride 104 (100-108) mmol/L Carbon Dioxide 30 (21-32) mmol/L Anion Gap 6.7 (5.0-14.0) mmol/L BUN 19 H (7-18) mg/dL Creatinine 0.8 (0.8-1.3) mg/dL Est Cr Clr Drug Dosing 80.04 mL/min Estimated GFR (MDRD) > 60 (>60) Glucose 62 L (74-106) mg/dL Calcium 9.0 (8.5-10.1) mg/dL Fei Results Last 24 Hours: Microbiology 07/29/18 10:50 Aerobic Blood Culture - Preliminary Blood - Arm, Right NO GROWTH AFTER 2 DAYS Anaerobic Blood Culture - Preliminary NO GROWTH AFTER 2 DAYS 07/29/18 10:45 Aerobic Blood Culture - Preliminary Blood - Venous - Iv Start NO GROWTH AFTER 2 DAYS Anaerobic Blood Culture - Preliminary NO GROWTH AFTER 2 DAYS 07/29/18 13:04 Urine Culture - Preliminary Urine, Clean Catch Med Orders - Current: Current Medications Acetaminophen (Tylenol) 650 mg PO Q4H PRN PRN Reason: Pain (Mild 1-3)/fever Last Admin: 07/29/18 21:18 Dose: 650 mg Albuterol (Proventil Neb Soln) 2.5 mg NEB Q4H PRN PRN Reason: Shortness Of Breath/wheezing Last Admin: 07/31/18 07:47 Dose: 2.5 mg Amlodipine Besylate (Norvasc) 5 mg PO DAILY [facility] Last Admin: 07/31/18 08:48 Dose: 5 mg Amoxicillin/Clavulanate Potassium (Augmentin 875 Mg/125 Mg) 1 tab PO Q12HR [facility] Aspirin (Halfprin) 81 mg PO DAILY [facility] Last Admin: 07/31/18 08:49 Dose: 81 mg Enoxaparin Sodium (Lovenox) 40 mg SUBCUT DAILY [facility] Last Admin: 07/31/18 09:16 Dose: 40 mg Ibuprofen (Motrin) 600 mg PO Q6H PRN PRN Reason: Pain/Fever Insulin Glargine (Lantus Solostar) 51 units SUBCUT BID [facility] Last Admin: 07/31/18 09:18 Dose: 51 units Insulin Human Lispro (Humalog) 0 unit SUBCUT QIDACANDBED [facility]; Protocol Last Admin: 07/31/18 12:19 Dose: Not Given Insulin Human Lispro (Humalog) 51 unit SUBCUT BID [facility] Last Admin: 07/31/18 09:19 Dose: 51 units Lactobacillus Rhamnosus (Culturelle) 1 cap PO BID [facility] Last Admin: 07/31/18 08:49 Dose: 1 cap Lorazepam (Ativan) 0.5 mg IVPUSH Q4H PRN PRN Reason: Nausea/Vomiting Magnesium Hydroxide (Milk Of Magnesia) 30 ml PO Q12H PRN PRN Reason: Constipation Last Admin: 07/30/18 20:37 Dose: 30 ml Melatonin (Melatonin) 9 mg PO BEDTIME [facility] Last Admin: 07/30/18 20:33 Dose: 9 mg Metformin HCl (Glucophage) 1,000 mg PO BIDMEALS [facility] Last Admin: 07/31/18 07:47 Dose: 1,000 mg Metoprolol Succinate (Toprol Xl) 50 mg PO BID [facility] Last Admin: 07/31/18 08:47 Dose: 50 mg Ondansetron HCl (Zofran Odt) 4 mg PO Q6H PRN PRN Reason: Nausea able to take PO Ondansetron HCl (Zofran) 4 mg IV Q6H PRN PRN Reason: Nausea/Vomiting Last Admin: 07/29/18 14:17 Dose: 4 mg Senna/Docusate Sodium (Senna Plus) 1 tab PO BID PRN PRN Reason: Constipation Last Admin: 07/31/18 07:47 Dose: 1 tab Tamsulosin HCl (Flomax) 0.4 mg PO PCBREAKFAST [facility] Last Admin: 07/31/18 08:47 Dose: 0.4 mg Triamterene/HCTZ (Maxzide 25-37.5 Mg) 1 each PO DAILY [facility] Last Admin: 07/31/18 08:49 Dose: 1 each Discontinued Medications Piperacillin Sod/Tazobactam (Sod 4.5 gm/ Sodium Chloride) 50 mls @ 100 mls/hr IV Q6H [facility] Last Admin: 07/29/18 11:23 Dose: 100 mls/hr Lactated Ringer's (Ringers, Lactated) 1,000 mls @ 999 mls/hr IV BOLUS ONE Stop: 07/29/18 11:49 Last Admin: 07/29/18 11:57 Dose: 999 mls/hr Piperacillin/Tazobactam/ (Dextrose 3.375 gm/ Premix) 50 mls @ 100 mls/hr IV Q6H [facility] Last Admin: 07/31/18 11:11 Dose: 100 mls/hr Sodium Chloride (Normal Saline) 1,000 mls @ 125 mls/hr IV ASDIRECTED [facility] Last Admin: 07/30/18 07:05 Dose: 125 mls/hr Potassium Chloride 20 meq/Lidocaine HCl 2 ml/ Sodium Chloride 112 mls @ 56 mls/ hr IV Q2H [facility] Stop: 07/29/18 18:29 Last Admin: 07/29/18 18:22 Dose: 56 mls/hr Insulin Glargine (Lantus Solostar) 35 units SUBCUT BID [facility] Last Admin: 07/30/18 08:11 Dose: 35 units Insulin Human Lispro (Humalog) 20 unit SUBCUT TIDMEALS [facility] Last Admin: 07/30/18 12:05 Dose: 20 unit Moxifloxacin HCl (Vigamox 0.5% Oph Sol) ml EYERT QID [facility] Non-Formulary Medication (Prednisolone Acetate/Pf [Prednisolone Acet 1% Eye Drop ]) 1 drop EYERT QID [facility] Last Admin: 07/29/18 17:53 Dose: Not Given Potassium Chloride (Klor-Con M20) 40 meq PO ONETIME ONE Stop: 07/30/18 09:46 Last Admin: 07/30/18 10:09 Dose: 40 meq Potassium Chloride (Klor-Con M20) 40 meq PO ONETIME ONE Stop: 07/30/18 17:01 Last Admin: 07/30/18 17:11 Dose: 40 meq - Exam Quality Assessment: DVT Prophylaxis General: Alert, Cooperative, No Acute Distress. No: Oriented Lungs: Decreased Breath Sounds. No: Rales, Rhonchi, Wheezing Cardiovascular: Regular Rate, Regular Rhythm, No Murmurs GI/Abdominal Exam: Soft, Non-Tender, No Organomegaly, No Distention Extremities: Non-Tender, Pedal Edema - Problem List Review Problem List Initiated/Reviewed/Updated: Yes - My Orders Last 24 Hours: My Active Orders 07/30/18 13:02 Convert IV to Saline Lock [OM.PC] Routine 07/30/18 21:00 Insulin Glarg,Human.Rec.Analog [LantUS Solostar] 51 units SUBCUT BID Insulin Lispro [HumaLOG] 51 unit SUBCUT BID 07/30/18 Dinner Consistent Carbohydrate Diet [DIET] 07/31/18 13:00 Amoxicillin/Clavulanate K [Augmentin 875 MG/125 MG] 1 tab PO Q12HR - Plan Plan:: ASSESSMENT AND PLAN - Cellulitis - stable over the last 24 hours, with no significant temperature elevations -Discontinue Pip/Tazo -Augmentin 875 one by twice daily Hypokalemia -resolved -Recheck potassium level in a.m. Insulin-dependent diabetes mellitus - on fairly high dose of insulin at home. His reports that she is able to get doses in the morning and at bedtime but he often declines his lunchtime dose. -Resume usual home regimen -Sliding-scale coverage -Continue metformin Alzheimer's disease without behavioral disturbance - no behavior issues at this time. Patient currently lethargic. -Melatonin at bedtime Maintenance issues - - DVT prophylaxis - enoxaparin - GI prophylaxis - not indicated - Nutrition - diabetic - Leo catheter - placed in the emergency room for strict intake and output monitoring, patient also incontinent CODE STATUS - DNR/DNI - discussed with , patient has advanced directive Admission justification - This patient will be admitted for inpatient services and is medically appropriate meeting medical necessity for inpatient admission as outlined in my documentation. I reasonably expect the patient will require inpatient services that span a period time over 2 midnights. I reasonably expect this patient to be discharged or transferred within 96 hours [facility] Disposition - I would anticipate discharge home with home health care after the hospital stay Primary care physician - Shama Solis MD
[2018-07-31] MEDS: Amoxicillin/Clavulanate K 875-125 MG Tab PO SCH (17:24)
[2018-07-31] MEDS: Melatonin 3 MG Tab PO SCH (21:24)
[2018-07-31] MEDS ORDERED: Insulin Glargine,Human Rec. Analog 100 Units/ML 3 ML Pen SUBCUT ONE (21:30)
[2018-08-01] MEDS: Amoxicillin/Clavulanate K 875-125 MG Tab PO SCH (05:33)
[2018-08-01] MEDS: Insulin Lispro 100 Unit/ML 3 ML KwikPen SUBCUT SCH ×3 (07:55→12:18)
[2018-08-01] MEDS: metFORMIN 500 MG Tab PO SCH (08:08)
[2018-08-01] MEDS: Lactobacillus Rhamnosus GG (Probiotic) Cap PO SCH (08:08)
[2018-08-01] MEDS: Aspirin 81 MG Tab.EC PO SCH (08:08)
[2018-08-01] MEDS: Tamsulosin 0.4 MG Cap.ER PO SCH (08:08)
[2018-08-01] MEDS: Enoxaparin 40 MG/0.4 ML Syringe SUBCUT SCH (08:09)
[2018-08-01] MEDS: Hydrochlorothiazide/Triamterene 25-37.5 Tab PO SCH (08:10)
[2018-08-01] MEDS: Metoprolol Succinate 50 MG Tab.ER PO SCH (08:10)
[2018-08-01] MEDS: amLODIPine 5 MG Tab PO SCH (08:11)
[2018-08-01] MEDS ORDERED: Bisacodyl 10 MG Supp RECTAL ONE (08:30)
[2018-08-01] MEDS ORDERED: Sodium Phosphate,Monobasic/Sodium Phosphate,Dibasic Enema 133 ML Bottle RECTAL ONE (11:00)
[2018-08-01] MEDS ORDERED: Insulin Glargine,Human Rec. Analog 100 Units/ML 3 ML Pen SUBCUT SCH (11:08)
[2018-08-01] MEDS ORDERED: Insulin Lispro 100 Unit/ML 3 ML KwikPen SUBCUT SCH (11:08)
--- NOTE | 2018-08-01 11:17 | PCM.DCSUM1 ---
Discharge Summary - Hospital Course Brief History: Mr. Hernandez is a 77-year-old gentleman who was admitted through the emergency department with weakness, lethargy, nausea, secondary to underlying cellulitis of the lower extremities. - Discharge Data Discharge Date: 08/01/18 Discharge Disposition: Home, Self-Care 01 Condition: Fair - Discharge Diagnosis/Problem(s) (1) Lymphedema of both lower extremities SNOMED Code(s): 16110796634006316 ICD Code: I89.0 - LYMPHEDEMA, NOT ELSEWHERE CLASSIFIED Status: Acute Current Visit: Yes (2) Cellulitis SNOMED Code(s): 631208310 ICD Code: L03.90 - CELLULITIS, UNSPECIFIED Status: Acute Current Visit: Yes (3) Dementia without behavioral disturbance SNOMED Code(s): 20106588 ICD Code: F03.90 - UNSPECIFIED DEMENTIA WITHOUT BEHAVIORAL DISTURBANCE Status: Chronic Current Visit: Yes Qualifiers: Dementia type: Alzheimer's disease Alzheimer's disease onset: late-onset Qualified Code(s): G30.1 - Alzheimer's disease with late onset; F02.80 - Dementia in other diseases classified elsewhere without behavioral disturbance (4) Diabetes mellitus type 2 SNOMED Code(s): 04859885 ICD Code: E11.9 - TYPE 2 DIABETES MELLITUS WITHOUT COMPLICATIONS Status: Chronic Priority: Medium Current Visit: No - Patient Summary/Data Consults: Consultations 07/30/18 07:00 PT Evaluation and Treatment [CONS] Routine Please Evaluate and Treat. PT Reason for Consult: Strengthening This query below is only for informational purposes and is not editable. Hospital Course: Mr. Hernandez presented to the emergency room with his by ambulance. He has dementia and is lethargic and is unable to provide any history. His reports that about 24 hours prior to admission, she noticed that he was a little bit more tired than usual. Nothing else seemed to far out of the ordinary. Appetite was stable. Last night around 10 PM he developed nausea with vomiting. She reports approximately 15 episodes of vomiting throughout the course of the night. He has been rubbing his belly but has not endorsed any specific abdominal pain. He was very weak and had difficulty standing and more difficulty ambulating. He was incontinent of urine this morning. She is not aware of his last bowel movement may have been as many as 4 days ago. He had some chills yesterday and requested more close to keep it warm. He has not had anything to eat or drink since supper last night. She does not think he appears short of breath or uncomfortable at this time. Workup in the emergency room has suggested acute cystitis with lethargy. Also noted was hyperglycemia. He does have a mildly elevated lactic acid but does not have other criteria for sepsis such as tachycardia, hypotension or tachypnea. He has received broad- spectrum antibiotics and cultures have been obtained. He has received 1 L of IV fluids. On admission he was continued on IV fluids for hydration, review of urinalysis showed minimal evidence for cystitis. He had been noted to have erythema involving his severe lymphedema both lower extremities, this was felt to represent most likely source of his infection. He was continued on broad- spectrum antibiotics, cultures returned negative. He improved significantly and became more alert and interactive. He was transitioned to oral antibiotic therapy with Augmentin and will be continued on an additional 4 days of this antibiotic after discharge. He was also treated with probiotic therapy lactobacillus twice daily. Blood sugars were monitored and initially he was treated with his usual dose of home insulin but it appeared that at least while in the hospital this dose was much too high. Doses of both the long and short acting insulins were decreased and will be continued in this range on discharge. Activity will be as tolerated and he will remain on a low-sodium consistent carbohydrate diet. Activity will be as tolerated, he will be discharged to the intermediate for restorative physical therapy and occupational therapy. - Patient Instructions Diet: Low Sodium, Diabetic Diet Activity: As Tolerated Other/Special Instructions: Daily physical therapy and occupational therapy while at the intermediate. 4 times a day glucometers. - Discharge Plan *PRESCRIPTION DRUG MONITORING PROGRAM REVIEWED*: Not Applicable *COPY OF PRESCRIPTION DRUG MONITORING REPORT IN PATIENT NARENDRA: Not Applicable Prescriptions/Med Rec: Amoxicillin/Clavulanate K [Augmentin 875-125 MG] 1 tab PO Q12H #8 tablet Insulin Glarg,Human.Rec.Analog [Lantus Solostar] 25 units SUBCUT BID #1 pen Insulin Lispro [Humalog] 20 unit SUBCUT BID #1 pen Lactobacillus Rhamnosus GG [Culturelle] 1 cap PO BID #60 cap Home Medications: Home Meds Aspirin [Adult Low Dose Aspirin EC] 81 mg PO DAILY 03/21/13 [History] HCTZ/Triamterene [Maxzide 25-37.5 MG] 1 tab PO DAILY 03/21/13 [History] Insulin Aspart [Novolog Flexpen] 51 unit SQ BID 03/21/13 [History] Insulin Detemir [Levemir Flexpen] 51 unit SQ BID 03/21/13 [History] Metoprolol Succinate [Toprol XL] 50 mg PO BID 03/21/13 [History] Multivitamin [Multi-Vitamin Daily] 1 each PO DAILY 03/21/13 [History] Simvastatin [Zocor] 20 mg PO BEDTIME 03/21/13 [History] Gemfibrozil [Lopid] 600 mg PO BIDAC #60 tablet 08/16/13 [Rx] amLODIPine [Norvasc] 5 mg PO DAILY #30 tablet 08/16/13 [Rx] Furosemide [Lasix] 40 mg PO DAILY 02/01/18 [History] Fexofenadine [Vera] 180 mg PO DAILY 02/28/18 [History] Tamsulosin [Flomax] 0.4 mg PO PCBREAKFAST #30 cap.er 03/01/18 [Rx] Acetaminophen [Tylenol Extra Strength] 1,000 mg PO TID PRN 03/12/18 [History] Ibuprofen 800 mg PO TID PRN 03/12/18 [History] metFORMIN [Glucophage] 1,000 mg PO BID 07/29/18 [History] Amoxicillin/Clavulanate K [Augmentin 875-125 MG] 1 tab PO Q12H #8 tablet [Rx] Insulin Glarg,Human.Rec.Analog [Lantus Solostar] 25 units SUBCUT BID #1 pen 02/07 [Rx] Insulin Lispro [Humalog] 20 unit SUBCUT BID #1 pen 08/01/18 [Rx] Lactobacillus Rhamnosus GG [Culturelle] 1 cap PO BID #60 cap 08/01/18 [Rx] Referrals: Shama Solis MD [Primary Care Provider] - - Discharge Summary/Plan Comment DC Time >30 min.: No - Patient Data Vitals - Most Recent: Last Vital Signs Temp 96.8 F 08/01/18 06:57 Pulse 70 08/01/18 08:10 Resp 20 08/01/18 06:57 BP 137/73 08/01/18 08:11 Pulse Ox 91 L 08/01/18 06:57 Weight - Most Recent: 266 lb 15.994 oz I&O - Last 24 hours: Intake & Output 07/31/18 08/01/18 08/01/18 22:59 06:59 14:59 Intake Total 940 269 Output Total 500 200 Balance 940 -500 69 MANUEL Results - Last 24 hrs: Microbiology 07/29/18 10:50 Aerobic Blood Culture - Preliminary Blood - Arm, Right NO GROWTH AFTER 2 DAYS Anaerobic Blood Culture - Preliminary NO GROWTH AFTER 2 DAYS 07/29/18 10:45 Aerobic Blood Culture - Preliminary Blood - Venous - Iv Start NO GROWTH AFTER 2 DAYS Anaerobic Blood Culture - Preliminary NO GROWTH AFTER 2 DAYS 07/29/18 13:04 Urine Culture - Preliminary Urine, Clean Catch Med Orders - Current: Current Medications Acetaminophen (Tylenol) 650 mg PO Q4H PRN PRN Reason: Pain (Mild 1-3)/fever Last Admin: 07/29/18 21:18 Dose: 650 mg Albuterol (Proventil Neb Soln) 2.5 mg NEB Q4H PRN PRN Reason: Shortness Of Breath/wheezing Last Admin: 07/31/18 23:21 Dose: 2.5 mg Amlodipine Besylate (Norvasc) 5 mg PO DAILY [facility] Last Admin: 08/01/18 08:11 Dose: 5 mg Amoxicillin/Clavulanate Potassium (Augmentin 875 Mg/125 Mg) 1 tab PO Q12H [facility] Last Admin: 08/01/18 05:33 Dose: 1 tab Aspirin (Halfprin) 81 mg PO DAILY [facility] Last Admin: 08/01/18 08:08 Dose: 81 mg Enoxaparin Sodium (Lovenox) 40 mg SUBCUT DAILY [facility] Last Admin: 08/01/18 08:09 Dose: 40 mg Ibuprofen (Motrin) 600 mg PO Q6H PRN PRN Reason: Pain/Fever Insulin Glargine (Lantus Solostar) 25 units SUBCUT BID [facility] Insulin Human Lispro (Humalog) 0 unit SUBCUT QIDACANDBED [facility], [facility]; Protocol Last Admin: 08/01/18 07:55 Dose: Not Given Insulin Human Lispro (Humalog) 20 unit SUBCUT BID [facility] Lactobacillus Rhamnosus (Culturelle) 1 cap PO BID [facility] Last Admin: 08/01/18 08:08 Dose: 1 cap Lorazepam (Ativan) 0.5 mg IVPUSH Q4H PRN PRN Reason: Nausea/Vomiting Magnesium Hydroxide (Milk Of Magnesia) 30 ml PO Q12H PRN PRN Reason: Constipation Last Admin: 07/30/18 20:37 Dose: 30 ml Melatonin (Melatonin) 9 mg PO BEDTIME [facility] Last Admin: 07/31/18 21:24 Dose: 9 mg Metformin HCl (Glucophage) 1,000 mg PO BIDMEALS [facility] Last Admin: 08/01/18 08:08 Dose: 1,000 mg Metoprolol Succinate (Toprol Xl) 50 mg PO BID [facility] Last Admin: 08/01/18 08:10 Dose: 50 mg Ondansetron HCl (Zofran Odt) 4 mg PO Q6H PRN PRN Reason: Nausea able to take PO Last Admin: 08/01/18 07:19 Dose: 4 mg Ondansetron HCl (Zofran) 4 mg IV Q6H PRN PRN Reason: Nausea/Vomiting Last Admin: 07/29/18 14:17 Dose: 4 mg Senna/Docusate Sodium (Senna Plus) 1 tab PO BID PRN PRN Reason: Constipation Last Admin: 07/31/18 07:47 Dose: 1 tab Tamsulosin HCl (Flomax) 0.4 mg PO PCBREAKFAST [facility] Last Admin: 08/01/18 08:08 Dose: 0.4 mg Triamterene/HCTZ (Maxzide 25-37.5 Mg) 1 each PO DAILY [facility] Last Admin: 08/01/18 08:10 Dose: 1 each Discontinued Medications Bisacodyl (Dulcolax) 10 mg RECTAL ONETIME ONE Stop: 08/01/18 08:31 Last Admin: 08/01/18 07:55 Dose: 10 mg Piperacillin Sod/Tazobactam (Sod 4.5 gm/ Sodium Chloride) 50 mls @ 100 mls/hr IV Q6H [facility] Last Admin: 07/29/18 11:23 Dose: 100 mls/hr Lactated Ringer's (Ringers, Lactated) 1,000 mls @ 999 mls/hr IV BOLUS ONE Stop: 07/29/18 11:49 Last Admin: 07/29/18 11:57 Dose: 999 mls/hr Piperacillin/Tazobactam/ (Dextrose 3.375 gm/ Premix) 50 mls @ 100 mls/hr IV Q6H [facility] Last Admin: 07/31/18 11:11 Dose: 100 mls/hr Sodium Chloride (Normal Saline) 1,000 mls @ 125 mls/hr IV ASDIRECTED [facility], [facility] Last Admin: 07/30/18 07:05 Dose: 125 mls/hr Potassium Chloride 20 meq/Lidocaine HCl 2 ml/ Sodium Chloride 112 mls @ 56 mls/ hr IV Q2H [facility]BAR Stop: 07/29/18 18:29 Last Admin: 07/29/18 18:22 Dose: 56 mls/hr Insulin Glargine (Lantus Solostar) 35 units SUBCUT BID [facility] Last Admin: 07/30/18 08:11 Dose: 35 units Insulin Glargine (Lantus Solostar) 51 units SUBCUT BID [facility] Last Admin: 07/31/18 21:27 Dose: Not Given Insulin Glargine (Lantus Solostar) 30 units SUBCUT ONETIME ONE Stop: 08/01/18 21:31 Insulin Glargine (Lantus Solostar) 30 units SUBCUT ONETIME ONE Stop: 07/31/18 21:31 Last Admin: 07/31/18 21:42 Dose: 30 units Insulin Human Lispro (Humalog) 20 unit SUBCUT TIDMEALS [facility] Last Admin: 07/30/18 12:05 Dose: 20 unit Insulin Human Lispro (Humalog) 51 unit SUBCUT BID [facility] Last Admin: 07/31/18 21:26 Dose: Not Given Moxifloxacin HCl (Vigamox 0.5% [facility]) ml EYERT QID [facility] Non-Formulary Medication (Prednisolone Acetate/Pf [Prednisolone Acet 1% Eye Drop ]) 1 drop EYERT QID [facility] Last Admin: 07/29/18 17:53 Dose: Not Given Potassium Chloride (Klor-Con M20) 40 meq PO ONETIME ONE Stop: 07/30/18 09:46 Last Admin: 07/30/18 10:09 Dose: 40 meq Potassium Chloride (Klor-Con M20) 40 meq PO ONETIME ONE Stop: 07/30/18 17:01 Last Admin: 07/30/18 17:11 Dose: 40 meq Sodium Biphosphate/Sodium Phosphate (Fleet Enema) 133 ml RECTAL ONETIME ONE Stop: 08/01/18 11:01 - Exam Quality Assessment: Reports: DVT Prophylaxis General: Reports: Alert, Cooperative, No Acute Distress. Denies: Oriented Lungs: Reports: Clear to Auscultation, Normal Respiratory Effort Cardiovascular: Reports: Regular Rate, Regular Rhythm GI/Abdominal Exam: Soft, Non-Tender, No Organomegaly, No Distention Extremities: Non-Tender, Other (Severe lymphedema both lower extremities) *Q Meaningful Use (DIS) - VTE *Q VTE Mechanical Contraindications *Q: Bilateral Lower Edema
[2018-08-01 11:29] VITALS: BP 150/61
[2018-08-01] MEDS: Insulin Glargine,Human Rec. Analog 100 Units/ML 3 ML Pen SUBCUT SCH (12:18)
[2018-08-01] MEDS ORDERED: Insulin Glargine,Human Rec. Analog 100 Units/ML 3 ML Pen SUBCUT ONE (21:30)
== END 2018-08-01 15:11 | DRG 603 ==
LOC: JP.ED 10:25 → JP.MS 12:57
PROVIDERS: ADMIT Internal Medicine; ATTEND Hospitalist
DX: R41.82 Altered mental status, unspecified (principal); R53.81 Other malaise; R11.2 Nausea with vomiting, unspecified; L03.116 Cellulitis of left lower limb; L03.115 Cellulitis of right lower limb; Z66 Do not resuscitate; I89.0 Lymphedema, not elsewhere classified; R60.0 Localized edema; G30.1 Alzheimer's disease with late onset; F02.80 Dementia in other diseases classified elsewhere, unspecified severity, without behavioral disturbance, psychotic disturbance, mood disturbance, and anxiety; E11.65 Type 2 diabetes mellitus with hyperglycemia; Z79.4 Long term (current) use of insulin; I10 Essential (primary) hypertension; E87.6 Hypokalemia; Z87.440 Personal history of urinary (tract) infections; I87.8 Other specified disorders of veins; Z87.891 Personal history of nicotine dependence; E78.00 Pure hypercholesterolemia, unspecified; H91.90 Unspecified hearing loss, unspecified ear; H54.7 Unspecified visual loss; E66.9 Obesity, unspecified; Z68.30 Body mass index [BMI] 30.0-30.9, adult; R32 Unspecified urinary incontinence; Z88.1 Allergy status to other antibiotic agents; Z91.048 Other nonmedicinal substance allergy status; Z79.82 Long term (current) use of aspirin; Z79.899 Other long term (current) drug therapy
CPT/HCPCS: 36415; 51702; 71046; 80053; 83605; 83690; 85025; 87040 ×2; 87088; 96361; 96365; 99285; J2543; J7050; J7120; 80048; 81001; 82962; 85027; 87086; 87186; 94640; 97110-GP; 97162-GP; 97530-GP; A9270-GY; J1650; J1815; J1815-GY; J2001; J2405; J3480; J7030

== ENCOUNTER 2018-10-04 23:25 | Inpatient (IN) | payer MEDICARE, MEDICAID ==
[2018-10-05] MEDS ORDERED: Sodium Chloride 0.9% 10 ML Syringe FLUSH PRN (00:14)
--- NOTE | 2018-10-05 00:22 | EDM.PDOC ---
ED HPI GENERAL MEDICAL PROBLEM - General Chief Complaint: Fever Stated Complaint: [facility] Time Seen by Provider: 10/05/18 00:13 Source of Information: Reports: Family History Limitations: Reports: Physical Impairment - History of Present Illness INITIAL COMMENTS - FREE TEXT/NARRATIVE: This gentleman arrived by EMS. He has dementia and today has a fever. His said he was up to 103 he vomited once this morning and hence hasn't had anything to eat or drink all day. He was hospitalized about a month ago for a urinary tract infection and I believe he had some urinary retention then. He is unable to void now. His says that his legs normally swell that usually they put wraps every day but the wraps were not placed today by home health care. He had been in a residential and he was taken out of the residential a month or so ago. Treatments [employer]: Reports: Other (see below) Other Treatments [employer]: None - Related Data Allergies Allergy/AdvReac Type Severity Reaction Status Date / Time adhesive Allergy Severe Rash Verified 10/04/18 23:59 ciprofloxacin HCl Allergy Severe Edema Verified 10/04/18 23:59 [From Cipro] Home Meds: Home Meds Aspirin [Adult Low Dose Aspirin EC] 81 mg PO DAILY 03/21/13 [History] HCTZ/Triamterene [Maxzide 25-37.5 MG] 1 tab PO DAILY 03/21/13 [History] Metoprolol Succinate [Toprol XL] 50 mg PO BID 03/21/13 [History] Multivitamin [Multi-Vitamin Daily] 1 each PO DAILY 03/21/13 [History] Simvastatin [Zocor] 10 mg PO BEDTIME 03/21/13 [History] Gemfibrozil [Lopid] 600 mg PO BIDAC #60 tablet 08/16/13 [Rx] Furosemide [Lasix] 40 mg PO DAILY 02/01/18 [History] Fexofenadine [Vera] 180 mg PO DAILY 02/28/18 [History] Tamsulosin [Flomax] 0.4 mg PO PCBREAKFAST #30 cap.er 03/01/18 [Rx] Acetaminophen [Tylenol Extra Strength] 1,000 mg PO TID PRN 03/12/18 [History] Ibuprofen 800 mg PO TID PRN 03/12/18 [History] metFORMIN [Glucophage] 1,000 mg PO BID 07/29/18 [History] Lactobacillus Rhamnosus GG [Culturelle] 1 cap PO BID #60 cap 08/01/18 [Rx] Insulin Glarg,Human.Rec.Analog [Lantus Solostar] 30 units SUBCUT BID 10/04/18 [ History] Insulin Lispro [HumaLOG] 15 - 20 unit SQ TIDMEALS 10/04/18 [History] amLODIPine [Norvasc] 2.5 mg PO DAILY 10/04/18 [History] Past Medical History HEENT History: Reports: Cataract, Hard of Hearing, Impaired Vision, Other (See Below) Other HEENT History: No teeth Cardiovascular History: Reports: High Cholesterol, Hypertension Gastrointestinal History: Reports: None Genitourinary History: Reports: Urinary Incontinence Neurological History: Reports: Other (See Below) Other Neuro History: spouse says that pt. was diagnosed with dementia about 2.5 years ago. 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 unable to read or writel Possible dementia. Endocrine/Metabolic History: Reports: Diabetes, Type II, Obesity/BMI 30+ Dermatologic History: Reports: Cellulitis Other Dermatologic History: lower ext. cellulitis - Infectious Disease History Infectious Disease History: Reports: Chicken Pox, Measles, Mumps - Past Surgical History HEENT Surgical History: Reports: Cataract Surgery, Eye Surgery GI Surgical History: Reports: Appendectomy Male Surgical History: Reports: None Neurological Surgical History: Reports: None Social & Family History - Family History Family Medical History: Unobtainable - Tobacco Use Smoking Status *Q: Never Smoker Second Hand Smoke Exposure: No - Caffeine Use Caffeine Use: Reports: Coffee Caffeine Use Comment: coup - Recreational Drug Use Recreational Drug Use: No - Living Situation & Occupation Living situation: Reports: , with Family Occupation: Retired (Lives with [place] in [place], [place]. 2 children, 3 stepchildren) ED ROS GENERAL - Review of Systems Review Of Systems: Unable To Obtain (All history is obtained from his ) ED EXAM, SEPSIS - Physical Exam Exam: See Below Exam Limited By: Altered Mental Status General Appearance: Alert, Other (He seems awake and fairly alert is very obese man doesn't appear to be in as any distress but he does not speak although he obeys simple commands readily.) Eye Exam: Right Eye: PERRL (Pupils are equal round and reactive I can't really test extraocular movements) Throat/Mouth: Other (Oral mucosa seems fairly moist. I was not able to see the pharynx.) Head: Atraumatic Neck: Supple Respiratory/Chest: Lungs Clear (Lung exam was difficult but seems to have fairly good air movement no obvious rhonchi or crackles.) Cardiovascular: Regular Rate, Rhythm GI/Abdominal Exam: Normal Bowel Sounds, Soft, Non-Tender, Distended (Seems distended but this may just be obesity.) (Male) Exam: Other (Normal penis and testes. The bladder appeared to be distended on exam and so the nurse did a bladder scan showing 689 mL) Rectal (Males) Exam: Other (Social habits seen his buttocks and rectal area that yet but we will when we can get him turned over.) Extremities: Other (He has severe lymphedema of the lower extremities and there are many lumps appearing like nodules all over the lower legs it actually looks like some kind of treatment are) Neurological: Other (He seems to move all extremities the inner X very little). No: Oriented ( no or talk with her talking about that 30 overhead using ) Skin: Other (There is a very bright red he slight rash to the left crural folds. ) Course - Vital Signs Last Recorded V/S: Last Vital Signs Temp 37.0 C 10/05/18 00:52 Pulse 75 10/05/18 00:52 Resp 14 10/05/18 00:52 BP 138/55 L 10/05/18 00:52 Pulse Ox 96 10/05/18 00:52 - Orders/Labs/Meds Orders: Active Orders 24 hr Category Date Time Status Bladder Scan [RC] ASDIRECTED Care 10/05/18 00:15 Ordered Leo Catheter Insertion [Insert Urinary Catheter] [OM. Care 10/05/18 00:15 Ordered PC] Q24H Urinary Catheter Assessment [RC] ASDIRECTED Care 10/05/18 00:14 Ordered Chest 1V Frontal [CR] Urgent Exams 10/05/18 00:14 Ordered CULTURE BLOOD [BC] Urgent Lab 10/05/18 00:15 Ordered CULTURE BLOOD [BC] Urgent Lab 08/16/19 00:15 Ordered Sodium Chloride 0.9% [Saline Flush] Med 10/05/18 00:14 Ordered 10 ml FLUSH ASDIRECTED PRN Blood Culture x2 Reflex Set [OM.PC] Urgent Oth 10/05/18 00:15 Ordered Saline Lock Insert [OM.PC] Urgent Oth 10/05/18 00:14 Ordered Medication Orders Sodium Chloride (Saline Flush) 10 ml FLUSH ASDIRECTED PRN PRN Reason: Keep Vein Open Last Admin: 10/05/18 00:56 Dose: 10 ml Labs: Laboratory Tests 10/05/18 10/05/18 10/05/18 Range/Units 00:14 00:24 00:24 WBC 11.4 H (4.5-11.0) K/uL RBC 5.08 (4.30-5.90) M/uL Hgb 13.7 D (12.0-15.0) g/dL Hct 39.4 L (40.0-54.0) % MCV 78 L (80-98) fL MCH 27 (27-31) pg MCHC 35 (32-36) % Plt Count 163 (150-400) K/uL Neut % (Auto) 87 H (36-66) % Lymph % (Auto) 8 L (24-44) % [place] % (Auto) 5 (2-6) % Eos % (Auto) 0 L (2-4) % Baso % (Auto) 0 (0-1) % Sodium 135 L (140-148) mmol/L Potassium 3.7 (3.6-5.2) mmol/L Chloride 97 L (100-108) mmol/L Carbon Dioxide 31 (21-32) mmol/L Anion Gap 10.7 (5.0-14.0) mmol/L BUN 16 (7-18) mg/dL Creatinine 1.0 (0.8-1.3) mg/dL Est Cr Clr Drug Dosing 65.89 mL/min Estimated GFR (MDRD) > 60 (>60) Glucose 292 H (74-106) mg/dL Lactic Acid 2.3 H (0.4-2.0) mmol/L Calcium 8.9 (8.5-10.1) mg/dL Total Bilirubin 0.8 (0.2-1.0) mg/dL AST 18 (15-37) U/L ALT 23 (12-78) U/L Alkaline Phosphatase 61 (46-116) U/L Total Protein 7.2 (6.4-8.2) g/dL Albumin 3.2 L (3.4-5.0) g/dL Globulin 4.0 H (2.3-3.5) g/dL Albumin/Globulin Ratio 0.8 L (1.2-2.2) Urine Color (YELLOW) Urine Appearance (CLEAR) Urine pH (5.0-8.0) Ur Specific Joshua (1.008-1.030) Urine Protein (NEGATIVE) mg/dL Urine Glucose (UA) (NEGATIVE) mg/dL Urine Ketones (NEGATIVE) mg/dL Urine Occult Blood (NEGATIVE) Urine Nitrite (NEGATIVE) Urine Bilirubin (NEGATIVE) Urine Urobilinogen (0.2-1.0) EU/dL Ur Leukocyte Esterase (NEGATIVE) Urine RBC (0-5) Urine WBC (0-5) Ur Epithelial Cells Amorphous Sediment Urine Bacteria Urine Mucus 10/05/18 Range/Units 00:44 WBC (4.5-11.0) K/uL RBC (4.30-5.90) M/uL Hgb (12.0-15.0) g/dL Hct (40.0-54.0) % MCV (80-98) fL MCH (27-31) pg MCHC (32-36) % Plt Count (150-400) K/uL Neut % (Auto) (36-66) % Lymph % (Auto) (24-44) % [place] % (Auto) (2-6) % Eos % (Auto) (2-4) % Baso % (Auto) (0-1) % Sodium (140-148) mmol/L Potassium (3.6-5.2) mmol/L Chloride (100-108) mmol/L Carbon Dioxide (21-32) mmol/L Anion Gap (5.0-14.0) mmol/L BUN (7-18) mg/dL Creatinine (0.8-1.3) mg/dL Est Cr Clr Drug Dosing mL/min Estimated GFR (MDRD) (>60) Glucose (74-106) mg/dL Lactic Acid (0.4-2.0) mmol/L Calcium (8.5-10.1) mg/dL Total Bilirubin (0.2-1.0) mg/dL AST (15-37) U/L ALT (12-78) U/L Alkaline Phosphatase (46-116) U/L Total Protein (6.4-8.2) g/dL Albumin (3.4-5.0) g/dL Globulin (2.3-3.5) g/dL Albumin/Globulin Ratio (1.2-2.2) Urine Color Yellow (YELLOW) Urine Appearance Slightly cloudy A (CLEAR) Urine pH 5.5 (5.0-8.0) Ur Specific Joshua >= 1.030 (1.008-1.030) Urine Protein >=300 H (NEGATIVE) mg/dL Urine Glucose (UA) 250 H (NEGATIVE) mg/dL Urine Ketones Negative (NEGATIVE) mg/dL Urine Occult Blood Negative (NEGATIVE) Urine Nitrite Negative (NEGATIVE) Urine Bilirubin Small (NEGATIVE) Urine Urobilinogen 0.2 (0.2-1.0) EU/dL Ur Leukocyte Esterase Negative (NEGATIVE) Urine RBC 0-5 (0-5) Urine WBC 0-5 (0-5) Ur Epithelial Cells Not seen Amorphous Sediment Not seen Urine Bacteria Rare Urine Mucus Moderate Meds: Medications Generic Name Dose Route Start Last Admin Trade Name Freq PRN Reason Stop Dose Admin Sodium Chloride 10 ml 10/05/18 00:14 10/05/18 00:56 Saline Flush FLUSH 10 ml ASDIRECTED PRN Administration Keep Vein Open Discontinued Medications Generic Name Dose Route Start Last Admin Trade Name Freq PRN Reason Stop Dose Admin Lidocaine HCl 10 ml 10/05/18 00:30 10/05/18 00:34 Xylocaine 2% Jelly MUCMEM 10/05/18 00:31 10 ml ONETIME ONE Administration - Radiology Interpretation Free Text/Narrative:: Some mild cardiomegaly no obvious infiltrate. Radiology report pending - Re-Assessments/Exams Free Text/Narrative Re-Assessment/Exam: 10/05/18 00:22 I spoke with Eli Victoriano will plan to admit this patient and we are just getting labs and x-ray and so forth right now. She'll it seemed care of him shortly Departure - Departure Time of Disposition: 01:35 Disposition: Admitted As Inpatient 66 Condition: Fair Clinical Impression: Acute urinary retention, Fever - Discharge Information Referrals: Shama Solis MD [Primary Care Provider] - Forms: ED Department Discharge - My Orders Last 24 Hours: My Active Orders 10/05/18 00:14 Urinary Catheter Assessment [RC] ASDIRECTED Chest 1V Frontal [CR] Urgent Sodium Chloride 0.9% [Saline Flush] 10 ml FLUSH ASDIRECTED PRN Saline Lock Insert [OM.PC] Urgent 10/05/18 00:15 Bladder Scan [RC] ASDIRECTED Leo Catheter Insertion [Insert Urinary Catheter] [OM.PC] Q24H CULTURE BLOOD [BC] Urgent CULTURE BLOOD [BC] Urgent Blood Culture x2 Reflex Set [OM.PC] Urgent - Assessment/Plan Last 24 Hours: My Active Orders 10/05/18 00:14 Urinary Catheter Assessment [RC] ASDIRECTED Chest 1V Frontal [CR] Urgent Sodium Chloride 0.9% [Saline Flush] 10 ml FLUSH ASDIRECTED PRN Saline Lock Insert [OM.PC] Urgent 10/05/18 00:15 Bladder Scan [RC] ASDIRECTED Leo Catheter Insertion [Insert Urinary Catheter] [OM.PC] Q24H CULTURE BLOOD [BC] Urgent CULTURE BLOOD [BC] Urgent Blood Culture x2 Reflex Set [OM.PC] Urgent
[2018-10-05] MEDS ORDERED: Lidocaine 2% Jelly 10 ML Urojet MUCMEM ONE (00:30)
--- NOTE | 2018-10-05 01:16 | PCM.HP.2 ---
H&P History of Present Illness - General Date of Service: 10/04/18 Source of Information: Family ( give report, Mr. Hernandez has severe dementia) History Limitations: Reports: Altered Mental Status - History of Present Illness Initial Comments - Free Text/Narative: chief complaint: fever and lethargy This gentleman arrived by EMS. He has dementia and today has a fever. His said he was up to 103 he vomited once this morning and hence hasn't had anything to eat or drink all day. He was hospitalized about a month ago for a urinary tract infection and I believe he had some urinary retention then. He is unable to void now. His says that his legs normally swell that usually they put wraps every day but the wraps were not placed today by home health care. He had been in a jail and he was taken out of the jail a month or so ago. Onset of Symptoms: Reports: Gradual Duration of Symptoms: Reports: Day(s): (2) Location: Reports: Generalized Quality: Reports: Same as Previous Episode Severity: Moderate Improves with: Reports: None Worsens with: Reports: None Context: Reports: Other (chronic illness) Associated Symptoms: Reports: Fever/Chills (103 at home. ), Loss of Appetite ( had not eaten or drank fluids today), Nausea/Vomiting, Rash (yeast rash in groin folds.), Weakness, Other (unable to void. bladder scan in ER 689ml - gibbs cath placed.) - Related Data Allergies/Adverse Reactions: Allergies Allergy/AdvReac Type Severity Reaction Status Date / Time adhesive Allergy Severe Rash Verified 10/04/18 23:59 ciprofloxacin HCl Allergy Severe Edema Verified 10/04/18 23:59 [From Cipro] Home Medications: Home Meds Aspirin [Adult Low Dose Aspirin EC] 81 mg PO DAILY 03/21/13 [History] HCTZ/Triamterene [Maxzide 25-37.5 MG] 1 tab PO DAILY 03/21/13 [History] Metoprolol Succinate [Toprol XL] 50 mg PO BID 03/21/13 [History] Multivitamin [Multi-Vitamin Daily] 1 each PO DAILY 03/21/13 [History] Simvastatin [Zocor] 10 mg PO BEDTIME 03/21/13 [History] Gemfibrozil [Lopid] 600 mg PO BIDAC #60 tablet 08/16/13 [Rx] Furosemide [Lasix] 40 mg PO DAILY 02/01/18 [History] Fexofenadine [Vera] 180 mg PO DAILY 02/28/18 [History] Tamsulosin [Flomax] 0.4 mg PO PCBREAKFAST #30 cap.er 03/01/18 [Rx] Acetaminophen [Tylenol Extra Strength] 1,000 mg PO TID PRN 03/12/18 [History] Ibuprofen 800 mg PO TID PRN 03/12/18 [History] metFORMIN [Glucophage] 1,000 mg PO BID 07/29/18 [History] Lactobacillus Rhamnosus GG [Culturelle] 1 cap PO BID #60 cap 08/01/18 [Rx] Insulin Glarg,Human.Rec.Analog [Lantus Solostar] 30 units SUBCUT BID 10/04/18 [ History] Insulin Lispro [HumaLOG] 15 - 20 unit SQ TIDMEALS 10/04/18 [History] amLODIPine [Norvasc] 2.5 mg PO DAILY 10/04/18 [History] Past Medical History HEENT History: Reports: Cataract, Hard of Hearing, Impaired Vision, Other (See Below) Other HEENT History: No teeth Cardiovascular History: Reports: High Cholesterol, Hypertension Gastrointestinal History: Reports: None Genitourinary History: Reports: Retention, Urinary, Urinary Incontinence, UTI, Recurrent Neurological History: Reports: Other (See Below) Other Neuro History: spouse says that pt. was diagnosed with dementia about 2.5 years ago. 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 unable to read or writel Possible dementia. Endocrine/Metabolic History: Reports: Diabetes, Type II, Obesity/BMI 30+ Dermatologic History: Reports: Cellulitis Other Dermatologic History: lower ext. cellulitis - Infectious Disease History Infectious Disease History: Reports: Chicken Pox, Measles, Mumps - Past Surgical History Head Surgeries/Procedures: Reports: None HEENT Surgical History: Reports: Cataract Surgery, Eye Surgery GI Surgical History: Reports: Appendectomy Male Surgical History: Reports: None Neurological Surgical History: Reports: None Social & Family History - Family History Family Medical History: Unobtainable - Tobacco Use Smoking Status *Q: Never Smoker Second Hand Smoke Exposure: No - Caffeine Use Caffeine Use: Reports: Coffee Caffeine Use Comment: coup - Recreational Drug Use Recreational Drug Use: No - Living Situation & Occupation Living situation: Reports: , with Family Occupation: Retired (Lives with [place] in [place], [place]. 2 children, 3 stepchildren) H&P Review of Systems - Review of Systems: Review Of Systems: Unable To Obtain (mary, gives report) General: Reports: Fever (103 at home), Malaise, Fatigue, Decreased Appetite ( not eating for 1.5 days) HEENT: Reports: Glasses Pulmonary: Reports: No Symptoms Cardiovascular: Reports: Edema (chronic lower leg edema) Gastrointestinal: Reports: Distension ( reports last bowel movement 3 days ago) Genitourinary: Reports: Incontinence, Retention Musculoskeletal: Reports: Other (weakness) Skin: Reports: Rash (yeast rash to groin) Psychiatric: Reports: Other (dementia) Neurological: Reports: Pre-Existing Deficit, Difficulty Walking (ambulates with walker, refuses to use wheelchair at home) Hematologic/Lymphatic: Reports: No Symptoms Immunologic: Reports: No Symptoms Exam - Exam Exam: See Below - Vital Signs Vital Signs: Last Vital Signs Temp 37.0 C 10/05/18 00:52 Pulse 75 10/05/18 00:52 Resp 14 10/05/18 00:52 BP 138/55 L 10/05/18 00:52 Pulse Ox 96 10/05/18 00:52 Weight: 117.934 kg - Exam Quality Assessment: Urinary Catheter, DVT Prophylaxis General: Alert, Cooperative HEENT: PERRLA, Conjunctiva Clear, Other (mouth dry) Neck: Supple Lungs: Decreased Breath Sounds, Wheezing (noted to left posterior chest, anterior chest clear to bases) Cardiovascular: Regular Rate, Regular Rhythm GI/Abdominal Exam: Normal Bowel Sounds, Soft, Non-Tender, Distended (Male) Exam: Circumcised, Other (tinnea rash noted to groin folds.) Rectal (Males) Exam: Normal Exam, Deferred Back Exam: Normal Inspection Extremities: Pedal Edema (chronic lower leg edema), Increased Warmth (lower legs ), Redness (chronic lower leg edema with warmth and redness) Skin: Rash (tinnea rash noted to groin. lower legs with chronic edema) Neuro Extensive - Mental Status: Inattentive Neuro Extensive - Motor, Sensory, Reflexes: Motor/Sensory Deficits Psychiatric: Other (flat affect) - Patient Data Lab Results Last 24 hrs: Laboratory Results - last 24 hr 10/05/18 10/05/18 10/05/18 Range/Units 00:14 00:24 00:24 WBC 11.4 H (4.5-11.0) K/uL RBC 5.08 (4.30-5.90) M/uL Hgb 13.7 D (12.0-15.0) g/dL Hct 39.4 L (40.0-54.0) % MCV 78 L (80-98) fL MCH 27 (27-31) pg MCHC 35 (32-36) % Plt Count 163 (150-400) K/uL Neut % (Auto) 87 H (36-66) % Lymph % (Auto) 8 L (24-44) % [place] % (Auto) 5 (2-6) % Eos % (Auto) 0 L (2-4) % Baso % (Auto) 0 (0-1) % Sodium 135 L (140-148) mmol/L Potassium 3.7 (3.6-5.2) mmol/L Chloride 97 L (100-108) mmol/L Carbon Dioxide 31 (21-32) mmol/L Anion Gap 10.7 (5.0-14.0) mmol/L BUN 16 (7-18) mg/dL Creatinine 1.0 (0.8-1.3) mg/dL Est Cr Clr Drug Dosing 65.89 mL/min Estimated GFR (MDRD) > 60 (>60) Glucose 292 H (74-106) mg/dL Lactic Acid 2.3 H (0.4-2.0) mmol/L Calcium 8.9 (8.5-10.1) mg/dL Total Bilirubin 0.8 (0.2-1.0) mg/dL AST 18 (15-37) U/L ALT 23 (12-78) U/L Alkaline Phosphatase 61 (46-116) U/L Total Protein 7.2 (6.4-8.2) g/dL Albumin 3.2 L (3.4-5.0) g/dL Globulin 4.0 H (2.3-3.5) g/dL Albumin/Globulin Ratio 0.8 L (1.2-2.2) Urine Color (YELLOW) Urine Appearance (CLEAR) Urine pH (5.0-8.0) Ur Specific [place] (1.008-1.030) Urine Protein (NEGATIVE) mg/dL Urine Glucose (UA) (NEGATIVE) mg/dL Urine Ketones (NEGATIVE) mg/dL Urine Occult Blood (NEGATIVE) Urine Nitrite (NEGATIVE) Urine Bilirubin (NEGATIVE) Urine Urobilinogen (0.2-1.0) EU/dL Ur Leukocyte Esterase (NEGATIVE) Urine RBC (0-5) Urine WBC (0-5) Ur Epithelial Cells Amorphous Sediment Urine Bacteria Urine Mucus 10/05/18 Range/Units 00:44 WBC (4.5-11.0) K/uL RBC (4.30-5.90) M/uL Hgb (12.0-15.0) g/dL Hct (40.0-54.0) % MCV (80-98) fL MCH (27-31) pg MCHC (32-36) % Plt Count (150-400) K/uL Neut % (Auto) (36-66) % Lymph % (Auto) (24-44) % [place] % (Auto) (2-6) % Eos % (Auto) (2-4) % Baso % (Auto) (0-1) % Sodium (140-148) mmol/L Potassium (3.6-5.2) mmol/L Chloride (100-108) mmol/L Carbon Dioxide (21-32) mmol/L Anion Gap (5.0-14.0) mmol/L BUN (7-18) mg/dL Creatinine (0.8-1.3) mg/dL Est Cr Clr Drug Dosing mL/min Estimated GFR (MDRD) (>60) Glucose (74-106) mg/dL Lactic Acid (0.4-2.0) mmol/L Calcium (8.5-10.1) mg/dL Total Bilirubin (0.2-1.0) mg/dL AST (15-37) U/L ALT (12-78) U/L Alkaline Phosphatase (46-116) U/L Total Protein (6.4-8.2) g/dL Albumin (3.4-5.0) g/dL Globulin (2.3-3.5) g/dL Albumin/Globulin Ratio (1.2-2.2) Urine Color Yellow (YELLOW) Urine Appearance Slightly cloudy A (CLEAR) Urine pH 5.5 (5.0-8.0) Ur Specific [place] >= 1.030 (1.008-1.030) Urine Protein >=300 H (NEGATIVE) mg/dL Urine Glucose (UA) 250 H (NEGATIVE) mg/dL Urine Ketones Negative (NEGATIVE) mg/dL Urine Occult Blood Negative (NEGATIVE) Urine Nitrite Negative (NEGATIVE) Urine Bilirubin Small (NEGATIVE) Urine Urobilinogen 0.2 (0.2-1.0) EU/dL Ur Leukocyte Esterase Negative (NEGATIVE) Urine RBC 0-5 (0-5) Urine WBC 0-5 (0-5) Ur Epithelial Cells Not seen Amorphous Sediment Not seen Urine Bacteria Rare Urine Mucus Moderate Result Diagrams: 10/05/18 00:14 10/05/18 00:24 - Problem List (1) Fever SNOMED Code(s): 889167357 ICD Code: R50.9 - FEVER, UNSPECIFIED Status: Acute Priority: High Current Visit: Yes Qualifiers: Encounter type: initial encounter (2) Urinary retention SNOMED Code(s): 973392734 ICD Code: R33.9 - RETENTION OF URINE, UNSPECIFIED Status: Acute Priority : High Current Visit: Yes (3) Lymphedema of both lower extremities SNOMED Code(s): 67969038611229265 ICD Code: I89.0 - LYMPHEDEMA, NOT ELSEWHERE CLASSIFIED Status: Acute Priority: Medium Current Visit: Yes (4) Dementia with behavioral disturbance SNOMED Code(s): 8088585909416 ICD Code: F03.91 - UNSPECIFIED DEMENTIA WITH BEHAVIORAL DISTURBANCE Status : Chronic Priority: Medium Current Visit: Yes Qualifiers: Dementia type: Alzheimer's disease (5) Diabetes mellitus type 2 SNOMED Code(s): 34558760 ICD Code: E11.9 - TYPE 2 DIABETES MELLITUS WITHOUT COMPLICATIONS Status: Chronic Priority: Medium Current Visit: Yes (6) Tinea of the body SNOMED Code(s): 257442327 ICD Code: B35.4 - TINEA CORPORIS Status: Acute Priority: Medium Current Visit: Yes (7) HTN, Benign hypertension SNOMED Code(s): 40756451 ICD Code: I10 - ESSENTIAL (PRIMARY) HYPERTENSION Status: Chronic Priority : Medium Current Visit: Yes Problem List Initiated/Reviewed/Updated: Yes Orders Last 24hrs: Active Orders 24 hr Category Date Time Status Bladder Scan [RC] ASDIRECTED Care 10/05/18 00:15 Active Gibbs Catheter Insertion [Insert Urinary Catheter] [OM. Care 10/05/18 00:15 Ordered PC] Q24H Urinary Catheter Assessment [RC] ASDIRECTED Care 10/05/18 00:14 Active Chest 1V Frontal [CR] Urgent Exams 10/05/18 00:14 Ordered CULTURE BLOOD [BC] Urgent Lab 10/05/18 00:24 Received CULTURE BLOOD [BC] Urgent Lab 10/05/18 00:30 Received Sodium Chloride 0.9% [Saline Flush] Med 10/05/18 00:14 Active 10 ml FLUSH ASDIRECTED PRN Blood Culture x2 Reflex Set [OM.PC] Urgent Oth 10/05/18 00:15 Ordered Saline Lock Insert [OM.PC] Urgent Oth 10/05/18 00:14 Ordered Medication Orders Sodium Chloride (Saline Flush) 10 ml FLUSH ASDIRECTED PRN PRN Reason: Keep Vein Open Last Admin: 10/05/18 00:56 Dose: 10 ml Assessment/Plan Comment:: ASSESSMENT AND PLAN - Fever - Urinary retention symptoms consistent with previous urinary tract infection, urine cloudy negative leukocytes or hematuria, fever and loss of appetite, nausea and vomiting. urinary retention noted in ER with 689ml by bladder scan. labs WBC 11.4 , lactic acid 2.3. chest x-ray clear. Only other potential sources could be mild cellulitis of the left lower leg. Cultures have been obtained. -IV Pip/Tazo 4.5 gm every 6 hours -blood culture and urine cultures pending -IV fluids Normal [id number] -gibbs cath for strict I&O -Repeat lactic acid level in am Insulin-dependent diabetes mellitus -order long acting Insulin -Continue mealtime insulin with a decrease in dose -Sliding-scale coverage low dose -Continue metformin Alzheimer's disease without behavioral disturbance - no behavior issues at this time. Patient currently very weak -Melatonin at bedtime lower leg edema -skin care -wrap leg daily with sp wraps Hypertension -continue home medications Maintenance issues - - DVT prophylaxis - scd - GI prophylaxis - Protonix 40 mg daily - Nutrition - diabetic - Gibbs catheter - placed in the emergency room for strict intake and output monitoring, patient also incontinent -consult PT -strengthen -consult OT - discharge planning CODE STATUS - DNR/DNI - discussed with , patient has advanced directive Admission justification - This patient will be admitted for inpatient services and is medically appropriate meeting medical necessity for inpatient admission as outlined in my documentation. I reasonably expect the patient will require inpatient services that span a period time over 2 midnights. I reasonably expect this patient to be discharged or transferred within 96 hours after admission to the [facility]. Disposition - I would anticipate discharge home with home health care after the hospital stay or home with Primary care physician - Shama Childers M.D. Additional CC's: Shama Solis - Mortality Measure Prognosis:: Good
--- NOTE | 2018-10-05 01:40 | CRLCR ---
Clinical INDICATION: Fever. COMPARISON: 07/29/2018. FINDINGS: The heart is magnified by the AP technique. There is vascular calcification in the aortic. There is no convincing infiltrate. The pulmonary vasculature and pleural surfaces appear normal. The bony thorax appears intact. IMPRESSION: No acute process identified. Dictated by Castillo Dobbs MD @ Oct 05 2018 1:35AM Signed by Dr. Castillo Dobbs @ Oct 05 2018 1:37AM
[2018-10-05] MEDS ORDERED: Albuterol 0.083% 2.5 MG/3 ML Neb Soln NEB PRN (02:27)
[2018-10-05] MEDS ORDERED: Ondansetron 4 MG Tab.DIS PO PRN (02:27)
[2018-10-05] MEDS ORDERED: Bisacodyl 5 MG Tab PO PRN (02:27)
[2018-10-05] MEDS ORDERED: Acetaminophen 325 MG Tab PO PRN (02:27)
[2018-10-05] MEDS ORDERED: oxyCODONE 5 MG Tab PO PRN (02:27)
[2018-10-05] MEDS ORDERED: Acetaminophen 500 MG Tab PO PRN (02:27)
[2018-10-05] MEDS ORDERED: Morphine 2 MG/ML Syringe IVPUSH PRN (02:27)
[2018-10-05] MEDS ORDERED: LORazepam 2 MG/ML SDV IV PRN (02:27)
[2018-10-05] MEDS ORDERED: Docusate Sodium 100 MG Cap PO PRN (02:27)
[2018-10-05] MEDS ORDERED: Piperacillin/Tazobactam 4.5 GM in Sodium Chloride 0.9% 100 ML IV SCH (02:27)
[2018-10-05] MEDS ORDERED: Sodium Chloride 0.9% 100 ML ONE (02:39)
[2018-10-05] MEDS ORDERED: Piperacillin/Tazobactam 4.5 GM Vial ONE (02:39)
[2018-10-05] MEDS: Sodium Chloride 0.9% 1,000 ML IV SCH ×3 (02:44→21:08)
[2018-10-05] MEDS: Albuterol/Ipratropium 3.0-0.5 MG/3 ML Neb Soln NEB SCH ×4 (07:12→21:24)
[2018-10-05] MEDS: Piperacillin/Tazobactam/Dext 4.5 GM in Premix Bag 1 BAG IV SCH ×3 (08:42→21:08)
[2018-10-05] MEDS: Lactobacillus Rhamnosus GG (Probiotic) Cap PO SCH ×2 (08:42→21:09)
[2018-10-05] MEDS: metFORMIN 500 MG Tab PO SCH ×2 (08:42→17:41)
[2018-10-05] MEDS: Clotrimazole 1% Crm 30 GM Tube TOP SCH ×2 (08:43→21:09)
[2018-10-05] MEDS: Furosemide 40 MG Tab PO SCH (08:43)
[2018-10-05] MEDS: Hydrochlorothiazide/Triamterene 25-37.5 Tab PO SCH (08:44)
[2018-10-05] MEDS: amLODIPine 5 MG Tab PO SCH (08:44)
[2018-10-05] MEDS: Metoprolol Succinate 50 MG Tab.ER PO SCH ×2 (08:45→21:24)
[2018-10-05] MEDS: Insulin Glargine,Human Rec. Analog 100 Units/ML 3 ML Pen SUBCUT SCH ×2 (08:47→21:24)
[2018-10-05] MEDS: Tamsulosin 0.4 MG Cap.ER PO SCH (08:47)
[2018-10-05] MEDS: Insulin Lispro 100 Unit/ML 3 ML KwikPen SUBCUT SCH ×5 (08:49→21:13)
[2018-10-05] MEDS ORDERED: Insulin Lispro 100 Unit/ML 3 ML KwikPen SUBCUT ONE ×2 (11:30→16:55)
--- NOTE | 2018-10-05 12:39 | PCM.PN ---
- General Info Date of Service: 10/05/18 Subjective Update: No acute events overnight following admission. No significant behavior issues. Patient reports that he feels well. Doesn't feel short of breath. No cough. No abdominal pain. No fevers overnight. Appetite has been good. Blood sugars are elevated. Functional Status: Reports: Pain Controlled, Tolerating Diet - Review of Systems General: Denies: Fever Pulmonary: Denies: Shortness of Breath, Cough Gastrointestinal: Denies: Abdominal Pain - Patient Data Vitals - Most Recent: Last Vital Signs Temp 36.2 C 10/05/18 11:55 Pulse 64 10/05/18 11:55 Resp 16 10/05/18 11:55 BP 151/56 H 10/05/18 11:55 Pulse Ox 98 10/05/18 11:55 Weight - Most Recent: 111.221 kg I&O - Last 24 Hours: Intake & Output 10/04/18 10/05/18 10/05/18 22:59 06:59 14:59 Intake Total 600 Output Total 1900 Balance -1300 Lab Results Last 24 Hours: Laboratory Results - last 24 hr 10/05/18 10/05/18 10/05/18 Range/Units 00:14 00:24 00:24 WBC 11.4 H (4.5-11.0) K/uL RBC 5.08 (4.30-5.90) M/uL Hgb 13.7 D (12.0-15.0) g/dL Hct 39.4 L (40.0-54.0) % MCV 78 L (80-98) fL MCH 27 (27-31) pg MCHC 35 (32-36) % Plt Count 163 (150-400) K/uL Neut % (Auto) 87 H (36-66) % Lymph % (Auto) 8 L (24-44) % [place] % (Auto) 5 (2-6) % Eos % (Auto) 0 L (2-4) % Baso % (Auto) 0 (0-1) % Sodium 135 L (140-148) mmol/L Potassium 3.7 (3.6-5.2) mmol/L Chloride 97 L (100-108) mmol/L Carbon Dioxide 31 (21-32) mmol/L Anion Gap 10.7 (5.0-14.0) mmol/L BUN 16 (7-18) mg/dL Creatinine 1.0 (0.8-1.3) mg/dL Est Cr Clr Drug Dosing 65.89 mL/min Estimated GFR (MDRD) > 60 (>60) Glucose 292 H (74-106) mg/dL Lactic Acid 2.3 H (0.4-2.0) mmol/L Calcium 8.9 (8.5-10.1) mg/dL Total Bilirubin 0.8 (0.2-1.0) mg/dL AST 18 (15-37) U/L ALT 23 (12-78) U/L Alkaline Phosphatase 61 (46-116) U/L Total Protein 7.2 (6.4-8.2) g/dL Albumin 3.2 L (3.4-5.0) g/dL Globulin 4.0 H (2.3-3.5) g/dL Albumin/Globulin Ratio 0.8 L (1.2-2.2) Urine Color (YELLOW) Urine Appearance (CLEAR) Urine pH (5.0-8.0) Ur Specific [place] (1.008-1.030) Urine Protein (NEGATIVE) mg/dL Urine Glucose (UA) (NEGATIVE) mg/dL Urine Ketones (NEGATIVE) mg/dL Urine Occult Blood (NEGATIVE) Urine Nitrite (NEGATIVE) Urine Bilirubin (NEGATIVE) Urine Urobilinogen (0.2-1.0) EU/dL Ur Leukocyte Esterase (NEGATIVE) Urine RBC (0-5) Urine WBC (0-5) Ur Epithelial Cells Amorphous Sediment Urine Bacteria Urine Mucus 10/05/18 10/05/18 Range/Units 00:44 08:08 WBC (4.5-11.0) K/uL RBC (4.30-5.90) M/uL Hgb (12.0-15.0) g/dL Hct (40.0-54.0) % MCV (80-98) fL MCH (27-31) pg MCHC (32-36) % Plt Count (150-400) K/uL Neut % (Auto) (36-66) % Lymph % (Auto) (24-44) % [place] % (Auto) (2-6) % Eos % (Auto) (2-4) % Baso % (Auto) (0-1) % Sodium (140-148) mmol/L Potassium (3.6-5.2) mmol/L Chloride (100-108) mmol/L Carbon Dioxide (21-32) mmol/L Anion Gap (5.0-14.0) mmol/L BUN (7-18) mg/dL Creatinine (0.8-1.3) mg/dL Est Cr Clr Drug Dosing mL/min Estimated GFR (MDRD) (>60) Glucose (74-106) mg/dL Lactic Acid 1.1 (0.4-2.0) mmol/L Calcium (8.5-10.1) mg/dL Total Bilirubin (0.2-1.0) mg/dL AST (15-37) U/L ALT (12-78) U/L Alkaline Phosphatase (46-116) U/L Total Protein (6.4-8.2) g/dL Albumin (3.4-5.0) g/dL Globulin (2.3-3.5) g/dL Albumin/Globulin Ratio (1.2-2.2) Urine Color Yellow (YELLOW) Urine Appearance Slightly cloudy A (CLEAR) Urine pH 5.5 (5.0-8.0) Ur Specific [place] >= 1.030 (1.008-1.030) Urine Protein >=300 H (NEGATIVE) mg/dL Urine Glucose (UA) 250 H (NEGATIVE) mg/dL Urine Ketones Negative (NEGATIVE) mg/dL Urine Occult Blood Negative (NEGATIVE) Urine Nitrite Negative (NEGATIVE) Urine Bilirubin Small (NEGATIVE) Urine Urobilinogen 0.2 (0.2-1.0) EU/dL Ur Leukocyte Esterase Negative (NEGATIVE) Urine RBC 0-5 (0-5) Urine WBC 0-5 (0-5) Ur Epithelial Cells Not seen Amorphous Sediment Not seen Urine Bacteria Rare Urine Mucus Moderate Med Orders - Current: Current Medications Acetaminophen (Tylenol) 650 mg PO Q4H PRN PRN Reason: Pain (Mild 1-3)/fever Albuterol (Proventil Neb Soln) 2.5 mg NEB Q4H PRN PRN Reason: Shortness Of Breath/wheezing Albuterol/Ipratropium (Duoneb 3.0-0.5 Mg/3 Ml) 3 ml NEB QIDRT [facility] Last Admin: 10/05/18 10:46 Dose: 3 ml Amlodipine Besylate (Norvasc) 2.5 mg PO DAILY [facility] Last Admin: 10/05/18 08:44 Dose: 2.5 mg Bisacodyl (Dulcolax) 5 mg PO DAILY PRN PRN Reason: Constipation Clotrimazole (Lotrimin Af 1% Crm) 0 gm TOP BID [facility] Last Admin: 10/05/18 08:43 Dose: 1 applic Docusate Sodium (Colace) 100 mg PO BID PRN PRN Reason: Constipation Furosemide (Lasix) 40 mg PO DAILY [facility] Last Admin: 10/05/18 08:43 Dose: 40 mg Piperacillin/Tazobactam/ (Dextrose 4.5 gm/ Premix) 100 mls @ 100 mls/hr IV Q6H [facility] Last Admin: 10/05/18 08:42 Dose: 100 mls/hr Insulin Glargine (Lantus Solostar) 30 units SUBCUT BID [facility] Last Admin: 10/05/18 08:47 Dose: 30 unit Insulin Human Lispro (Humalog) 0 unit SUBCUT QIDACANDBED [facility]; Protocol Lactobacillus Rhamnosus (Culturelle) 1 cap PO BID [facility] Last Admin: 10/05/18 08:42 Dose: 1 cap Lorazepam (Ativan) 1 mg IV Q6H PRN PRN Reason: Nausea/Vomiting [facility] ([facility] Last Admin: 10/05/18 08:42 Dose: 1,000 mg Metoprolol Succinate (Toprol Xl) 50 mg PO BID [facility] Last Admin: 10/05/18 08:45 Dose: 50 mg Morphine Sulfate (Morphine) 2 mg IVPUSH Q2H PRN PRN Reason: Pain (severe 7-10) Ondansetron HCl (Zofran Odt) 4 mg PO Q6H PRN PRN Reason: Nausea able to take PO Oxycodone HCl (Oxycodone) 5 mg PO Q4H PRN PRN Reason: Pain (moderate 4-6) Sodium Chloride (Saline Flush) 10 ml FLUSH ASDIRECTED PRN PRN Reason: Keep Vein Open Last Admin: 10/05/18 00:56 Dose: 10 ml Tamsulosin HCl (Flomax) 0.4 mg PO PCBREAKFAST [facility] Last Admin: 10/05/18 08:47 Dose: 0.4 mg Triamterene/HCTZ (Maxzide 25-37.5 Mg) 1 each PO DAILY [facility] Last Admin: 10/05/18 08:44 Dose: 1 each Discontinued Medications Acetaminophen (Tylenol Extra Strength) 1,000 mg PO TID PRN PRN Reason: Pain Piperacillin Sod/Tazobactam (Sod 4.5 gm/ Sodium Chloride) 100 mls @ 100 mls/hr IV Q6H [facility] Last Admin: 10/05/18 02:59 Dose: 100 mls/hr Sodium Chloride (Normal Saline) 1,000 mls @ 125 mls/hr IV ASDIRECTED [facility] Last Admin: 10/05/18 11:31 Dose: 125 mls/hr Sodium Chloride (Normal Saline) Confirm Administered Dose 100 mls @ as directed .ROUTE .STK-MED ONE Stop: 10/05/18 02:40 Last Admin: 10/05/18 04:04 Dose: Not Given Insulin Human Lispro (Humalog) 0 unit SUBCUT QIDACANDBED [facility]; Protocol Last Admin: 10/05/18 11:58 Dose: Not Given Insulin Human Lispro (Humalog) 10 unit SUBCUT ONETIME ONE Stop: 10/05/18 11:31 Last Admin: 10/05/18 12:01 Dose: 10 unit Lidocaine HCl (Xylocaine 2% Jelly) 10 ml MUCMEM ONETIME ONE Stop: 10/05/18 00:31 Last Admin: 10/05/18 00:34 Dose: 10 ml Melatonin (Melatonin) 6 mg PO BEDTIME [facility] Piperacillin Sod/Tazobactam Sod (Zosyn) Confirm Administered Dose 4.5 gm .ROUTE .STK-MED ONE Stop: 10/05/18 02:40 Last Admin: 10/05/18 04:04 Dose: Not Given - Exam Quality Assessment: Supplemental Oxygen General: Alert, Cooperative, No Acute Distress. No: Oriented Lungs: Clear to Auscultation, Normal Respiratory Effort. No: Wheezing Cardiovascular: Regular Rate, Regular Rhythm GI/Abdominal Exam: Soft, Non-Tender, No Distention Extremities: Pedal Edema. No: Increased Warmth Skin: Warm, Dry Psy/Mental Status: Alert. No: Agitated - Problem List Review Problem List Initiated/Reviewed/Updated: Yes - My Orders Last 24 Hours: My Active Orders 10/05/18 12:37 HENRIETTA Bandage [Elastic Wrap] [OM.PC] DAILY 10/05/18 12:38 Magnesium Hydroxide [Milk of Magnesia] 30 ml PO ONETIME ONE 10/05/18 13:00 Sodium Chloride 0.9% [Normal Saline] 1,000 ml IV ASDIRECTED 10/05/18 16:30 GLUCOSE POC LAB TO COLLECT [POC] QIDACANDBED 10/05/18 17:00 Insulin Lispro [HumaLOG] See Protocol SUBCUT QIDACANDBED 10/05/18 21:00 GLUCOSE POC LAB TO COLLECT [POC] QIDACANDBED Melatonin 9 mg PO BEDTIME 10/06/18 05:00 BASIC METABOLIC PANEL,BMP [CHEM] Timed CBC W/O DIFF,HEMOGRAM [HEME] Timed (1) 10/06/18 07:30 GLUCOSE POC LAB TO COLLECT [POC] QIDACANDBED 10/06/18 11:30 GLUCOSE POC LAB TO COLLECT [POC] QIDACANDBED 10/06/18 12:37 HENRIETTA Bandage [Elastic Wrap] [OM.PC] DAILY 10/06/18 16:30 GLUCOSE POC LAB TO COLLECT [POC] QIDACANDBED 10/06/18 21:00 GLUCOSE POC LAB TO COLLECT [POC] QIDACANDBED 10/07/18 07:30 GLUCOSE POC LAB TO COLLECT [POC] QIDACANDBED 10/07/18 11:30 GLUCOSE POC LAB TO COLLECT [POC] QIDACANDBED 10/07/18 12:37 HENRIETTA Bandage [Elastic Wrap] [OM.PC] DAILY 10/08/18 12:37 HENRIETTA Bandage [Elastic Wrap] [OM.PC] DAILY - Plan Plan:: ASSESSMENT AND PLAN - Fever and acute urinary retention - c/w with previous urinary tract infection though urine not strongly suggestive of infection. A fever since admission and seems to be doing better with hydration and antibiotics. -Continue Zosyn -blood culture and urine cultures pending -Continue gentle fluids -Continue Leo catheter today, consider voiding trial tomorrow Insulin-dependent diabetes mellitus - significant elevation in sugars today. -Continue long-acting insulin -Return mealtime dose to normal -Sliding-scale coverage high-dose -Continue metformin Alzheimer's disease without behavioral disturbance - no behavior issues at this time. Patient currently very weak -Melatonin at bedtime lower leg edema - chronic and stable. -skin care -wrap leg daily with henrietta wraps Hypertension -continue home medications Maintenance issues - - DVT prophylaxis - scd - GI prophylaxis - Protonix 40 mg daily - Nutrition - diabetic - Leo catheter - placed in the emergency room for acute urinary retention -consult PT -strengthen Disposition - I would anticipate discharge home with home health care after the hospital stay or home with Chuy Childers M.D.
[2018-10-05] MEDS ORDERED: Magnesium Hydroxide 400 MG/5 ML Susp 30 ML Cup PO ONE (13:30)
[2018-10-05] MEDS ORDERED: Melatonin 3 MG Tab PO SCH (21:00)
[2018-10-05] MEDS: Melatonin 3 MG Tab PO SCH (21:13)
[2018-10-06] MEDS: Piperacillin/Tazobactam/Dext 4.5 GM in Premix Bag 1 BAG IV SCH ×3 (02:52→13:18)
[2018-10-06] MEDS: Albuterol/Ipratropium 3.0-0.5 MG/3 ML Neb Soln NEB SCH ×4 (07:19→21:08)
[2018-10-06] MEDS: metFORMIN 500 MG Tab PO SCH ×2 (08:08→16:41)
[2018-10-06] MEDS: Metoprolol Succinate 50 MG Tab.ER PO SCH ×2 (08:08→20:59)
[2018-10-06] MEDS: Tamsulosin 0.4 MG Cap.ER PO SCH (08:08)
[2018-10-06] MEDS: Furosemide 40 MG Tab PO SCH (08:08)
[2018-10-06] MEDS: Lactobacillus Rhamnosus GG (Probiotic) Cap PO SCH ×2 (08:08→20:57)
[2018-10-06] MEDS: Clotrimazole 1% Crm 30 GM Tube TOP SCH ×2 (08:09→20:57)
[2018-10-06] MEDS: amLODIPine 5 MG Tab PO SCH (08:09)
[2018-10-06] MEDS: Hydrochlorothiazide/Triamterene 25-37.5 Tab PO SCH (08:09)
[2018-10-06] MEDS: Insulin Glargine,Human Rec. Analog 100 Units/ML 3 ML Pen SUBCUT SCH ×2 (08:10→21:12)
[2018-10-06] MEDS: Insulin Lispro 100 Unit/ML 3 ML KwikPen SUBCUT SCH ×7 (08:10→21:12)
--- NOTE | 2018-10-06 10:12 | PCM.PN ---
- General Info Date of Service: 10/06/18 Subjective Update: No acute events overnight. No behavior issues. No fevers. Appetite has been good. Still weak but seems to be slowly improving. Leo catheter removed this morning. Blood sugars have been moderately elevated. Patient does not report shortness of breath or abdominal pain. He is now off supplemental oxygen. Functional Status: Reports: Pain Controlled, Tolerating Diet - Review of Systems General: Reports: Weakness. Denies: Fever - Patient Data Vitals - Most Recent: Last Vital Signs Temp 36.2 C 10/06/18 07:41 Pulse 66 10/06/18 08:08 Resp 16 10/06/18 07:41 BP 146/47 H 10/06/18 08:09 Pulse Ox 94 L 10/06/18 07:41 Weight - Most Recent: 111.221 kg I&O - Last 24 Hours: Intake & Output 10/05/18 10/06/18 10/06/18 22:59 06:59 14:59 Intake Total 1622 1155 700 Output Total 1500 750 300 Balance 122 405 400 Lab Results Last 24 Hours: Laboratory Results - last 24 hr 10/06/18 10/06/18 Range/Units 05:47 05:47 WBC 7.1 (4.5-11.0) K/uL RBC 4.40 (4.30-5.90) M/uL Hgb 11.6 L D (12.0-15.0) g/dL Hct 35.1 L (40.0-54.0) % MCV 80 (80-98) fL MCH 26 L (27-31) pg MCHC 33 (32-36) % Plt Count 137 L (150-400) K/uL Sodium 135 L (140-148) mmol/L Potassium 3.4 L (3.6-5.2) mmol/L Chloride 98 L (100-108) mmol/L Carbon Dioxide 30 (21-32) mmol/L Anion Gap 10.4 (5.0-14.0) mmol/L BUN 23 H (7-18) mg/dL Creatinine 1.0 (0.8-1.3) mg/dL Est Cr Clr Drug Dosing 65.62 mL/min Estimated GFR (MDRD) > 60 (>60) Glucose 332 H (74-106) mg/dL Calcium 8.6 (8.5-10.1) mg/dL Fei Results Last 24 Hours: Microbiology 10/05/18 00:24 Aerobic Blood Culture - Preliminary Blood - Arm, Right NO GROWTH AFTER 1 DAY Anaerobic Blood Culture - Preliminary NO GROWTH AFTER 1 DAY 10/05/18 00:30 Aerobic Blood Culture - Preliminary Blood - Arm, Right NO GROWTH AFTER 1 DAY Anaerobic Blood Culture - Preliminary NO GROWTH AFTER 1 DAY Med Orders - Current: Current Medications Acetaminophen (Tylenol) 650 mg PO Q4H PRN PRN Reason: Pain (Mild 1-3)/fever Albuterol (Proventil Neb Soln) 2.5 mg NEB Q4H PRN PRN Reason: Shortness Of Breath/wheezing Albuterol/Ipratropium (Duoneb 3.0-0.5 Mg/3 Ml) 3 ml NEB QIDRT [facility] Last Admin: 10/06/18 07:19 Dose: 3 ml Amlodipine Besylate (Norvasc) 2.5 mg PO DAILY [facility] Last Admin: 10/06/18 08:09 Dose: 2.5 mg Bisacodyl (Dulcolax) 5 mg PO DAILY PRN PRN Reason: Constipation Clotrimazole (Lotrimin Af 1% Crm) 0 gm TOP BID [facility] Last Admin: 10/06/18 08:09 Dose: 1 applic Docusate Sodium (Colace) 100 mg PO BID PRN PRN Reason: Constipation Furosemide (Lasix) 40 mg PO DAILY [facility] Last Admin: 10/06/18 08:08 Dose: 40 mg Piperacillin/Tazobactam/ (Dextrose 4.5 gm/ Premix) 100 mls @ 100 mls/hr IV Q6H [facility] Last Admin: 10/06/18 08:18 Dose: 100 mls/hr Sodium Chloride (Normal Saline) 1,000 mls @ 25 mls/hr IV ASDIRECTED [facility] Last Admin: 10/05/18 21:08 Dose: 25 mls/hr Insulin Glargine (Lantus Solostar) 30 units SUBCUT BID [facility] Last Admin: 10/06/18 08:10 Dose: 30 unit Insulin Human Lispro (Humalog) 0 unit SUBCUT QIDACANDBED [facility]; Protocol Last Admin: 10/06/18 08:11 Dose: 6 units Insulin Human Lispro (Humalog) 20 unit SUBCUT TIDMEALS [facility] Lactobacillus Rhamnosus (Culturelle) 1 cap PO BID [facility] Last Admin: 10/06/18 08:08 Dose: 1 cap Lorazepam (Ativan) 1 mg IV Q6H PRN PRN Reason: Nausea/Vomiting Melatonin (Melatonin) 9 mg PO BEDTIME [facility] Last Admin: 10/05/18 21:13 Dose: 9 mg Metformin HCl (Glucophage) 1,000 mg PO BIDPC [facility] Last Admin: 10/06/18 08:08 Dose: 1,000 mg Metoprolol Succinate (Toprol Xl) 50 mg PO BID [facility] Last Admin: 10/06/18 08:08 Dose: 50 mg Morphine Sulfate (Morphine) 2 mg IVPUSH Q2H PRN PRN Reason: Pain (severe 7-10) Ondansetron HCl (Zofran Odt) 4 mg PO Q6H PRN PRN Reason: Nausea able to take PO Oxycodone HCl (Oxycodone) 5 mg PO Q4H PRN PRN Reason: Pain (moderate 4-6) Potassium Chloride (Klor-Con M20) 40 meq PO ONETIME ONE Stop: 10/06/18 10:31 Last Admin: 10/06/18 10:00 Dose: 40 meq Sodium Chloride (Saline Flush) 10 ml FLUSH ASDIRECTED PRN PRN Reason: Keep Vein Open Last Admin: 10/05/18 00:56 Dose: 10 ml Tamsulosin HCl (Flomax) 0.4 mg PO PCBREAKFAST [facility] Last Admin: 10/06/18 08:08 Dose: 0.4 mg Triamterene/HCTZ (Maxzide 25-37.5 Mg) 1 each PO DAILY [facility] Last Admin: 10/06/18 08:09 Dose: 1 each Discontinued Medications Acetaminophen (Tylenol Extra Strength) 1,000 mg PO TID PRN PRN Reason: Pain Piperacillin Sod/Tazobactam (Sod 4.5 gm/ Sodium Chloride) 100 mls @ 100 mls/hr IV Q6H [facility] Last Admin: 10/05/18 02:59 Dose: 100 mls/hr Sodium Chloride (Normal Saline) 1,000 mls @ 125 mls/hr IV ASDIRECTED [facility] Last Admin: 10/05/18 11:31 Dose: 125 mls/hr Sodium Chloride (Normal Saline) Confirm Administered Dose 100 mls @ as directed .ROUTE .STK-MED ONE Stop: 10/05/18 02:40 Last Admin: 10/05/18 04:04 Dose: Not Given Insulin Human Lispro (Humalog) 0 unit SUBCUT QIDACANDBED [facility]; Protocol Last Admin: 10/05/18 11:58 Dose: Not Given Insulin Human Lispro (Humalog) 10 unit SUBCUT ONETIME ONE Stop: 10/05/18 11:31 Last Admin: 10/05/18 12:01 Dose: 10 unit Insulin Human Lispro (Humalog) 15 unit SUBCUT TIDMEALS [facility] Last Admin: 10/06/18 08:10 Dose: 15 units Insulin Human Lispro (Humalog) 15 unit SUBCUT ONETIME ONE Stop: 10/05/18 16:56 Last Admin: 10/05/18 17:46 Dose: Not Given Lidocaine HCl (Xylocaine 2% Jelly) 10 ml MUCMEM ONETIME ONE Stop: 10/05/18 00:31 Last Admin: 10/05/18 00:34 Dose: 10 ml Magnesium Hydroxide (Milk Of Magnesia) 30 ml PO ONETIME ONE Stop: 10/05/18 13:31 Last Admin: 10/05/18 13:12 Dose: 30 ml Melatonin (Melatonin) 6 mg PO BEDTIME [facility] Piperacillin Sod/Tazobactam Sod (Zosyn) Confirm Administered Dose 4.5 gm .ROUTE .STK-MED ONE Stop: 10/05/18 02:40 Last Admin: 10/05/18 04:04 Dose: Not Given - Exam Quality Assessment: No: Supplemental Oxygen General: Alert, Cooperative, No Acute Distress. No: Oriented Lungs: Clear to Auscultation, Normal Respiratory Effort Cardiovascular: Regular Rate, Regular Rhythm GI/Abdominal Exam: Soft, No Distention Extremities: Pedal Edema Psy/Mental Status: Alert, Normal Affect - Problem List Review Problem List Initiated/Reviewed/Updated: Yes - My Orders Last 24 Hours: My Active Orders 10/05/18 12:37 HENRIETTA Bandage [Elastic Wrap] [OM.PC] DAILY 10/05/18 13:00 Sodium Chloride 0.9% [Normal Saline] 1,000 ml IV ASDIRECTED 10/05/18 17:00 Insulin Lispro [HumaLOG] See Protocol SUBCUT QIDACANDBED 10/05/18 21:00 Melatonin 9 mg PO BEDTIME 10/06/18 09:23 DC Leo Catheter [Urinary Catheter Removal] [RC] Per Unit Routine 10/06/18 10:30 Potassium Chloride [Klor-Con M20] 40 meq PO ONETIME ONE 10/06/18 11:30 GLUCOSE POC LAB TO COLLECT [POC] QIDACANDBED 10/06/18 12:00 Insulin Lispro [HumaLOG] 20 unit SUBCUT TIDMEALS 10/06/18 12:37 HENRIETTA Bandage [Elastic Wrap] [OM.PC] DAILY 10/06/18 16:30 GLUCOSE POC LAB TO COLLECT [POC] QIDACANDBED 10/06/18 21:00 GLUCOSE POC LAB TO COLLECT [POC] QIDACANDBED 10/07/18 05:00 BASIC METABOLIC PANEL,BMP [CHEM] Timed 10/07/18 07:30 GLUCOSE POC LAB TO COLLECT [POC] QIDACANDBED 10/07/18 11:30 GLUCOSE POC LAB TO COLLECT [POC] QIDACANDBED 10/07/18 12:37 HENRIETTA Bandage [Elastic Wrap] [OM.PC] DAILY 10/08/18 12:37 HENRIETTA Bandage [Elastic Wrap] [OM.PC] DAILY - Plan Plan:: ASSESSMENT AND PLAN - Fever and acute urinary retention - c/w with previous urinary tract infection though urine not strongly suggestive of infection. No fevers. Unfortunately no urine culture was set up. -Continue Zosyn, transition to oral medications tomorrow -Follow-up blood cultures -Continue gentle fluids -Remove Leo catheter today Insulin-dependent diabetes mellitus - moderate elevation of blood sugars but they are slowly improving. -Continue long-acting insulin -Increase mealtime insulin to 20 units -Sliding-scale coverage high-dose -Continue metformin Alzheimer's disease without behavioral disturbance - no behavior issues at this time. Patient currently week but getting around okay. -Melatonin at bedtime -Physical therapy Monday lower leg edema - chronic and stable. -skin care -wrap leg daily with henrietta wraps Hypertension -continue home medications Maintenance issues - - DVT prophylaxis - scd - GI prophylaxis - Protonix 40 mg daily - Nutrition - diabetic - Leo catheter - placed in the emergency room for acute urinary retention, removed today -consult PT -strengthen Disposition - I would [facility] after the hospital stay. Family does not feel they can provide adequate care at home at this time. Chuy Childers M.D.
[2018-10-06] MEDS ORDERED: Potassium Chloride 20 MEQ Tab.ER PO ONE (10:30)
[2018-10-06] MEDS ORDERED: methylPREDNISolone Sodium Succinate 125 MG/2 ML SDV IVPUSH ONE (17:25)
[2018-10-06] MEDS ORDERED: diphenhydrAMINE 50 MG/ML SDV IVPUSH ONE (17:26)
[2018-10-06] MEDS ORDERED: methylPREDNISolone Sodium Succinate 125 MG/2 ML SDV ONE (17:33)
[2018-10-06] MEDS ORDERED: diphenhydrAMINE 50 MG/ML SDV ONE (17:33)
[2018-10-06] MEDS: Melatonin 3 MG Tab PO SCH (20:57)
[2018-10-06] MEDS: Sodium Chloride 0.9% 1,000 ML IV SCH (23:05)
[2018-10-07] MEDS: Albuterol/Ipratropium 3.0-0.5 MG/3 ML Neb Soln NEB SCH ×4 (07:17→21:06)
[2018-10-07] MEDS: Tamsulosin 0.4 MG Cap.ER PO SCH (08:04)
[2018-10-07] MEDS: metFORMIN 500 MG Tab PO SCH ×2 (08:04→19:13)
[2018-10-07] MEDS: Metoprolol Succinate 50 MG Tab.ER PO SCH ×2 (08:04→21:03)
[2018-10-07] MEDS: Hydrochlorothiazide/Triamterene 25-37.5 Tab PO SCH (08:04)
[2018-10-07] MEDS: Furosemide 40 MG Tab PO SCH (08:04)
[2018-10-07] MEDS: amLODIPine 5 MG Tab PO SCH (08:04)
[2018-10-07] MEDS: Lactobacillus Rhamnosus GG (Probiotic) Cap PO SCH ×2 (08:04→21:03)
[2018-10-07] MEDS: Clotrimazole 1% Crm 30 GM Tube TOP SCH ×2 (08:05→21:03)
[2018-10-07] MEDS: Insulin Glargine,Human Rec. Analog 100 Units/ML 3 ML Pen SUBCUT SCH ×2 (08:07→21:05)
[2018-10-07] MEDS: Insulin Lispro 100 Unit/ML 3 ML KwikPen SUBCUT SCH ×7 (08:08→21:04)
--- NOTE | 2018-10-07 10:39 | PCM.PN ---
- General Info Date of Service: 10/07/18 Subjective Update: Yesterday evening the patient was noted to have a very swollen tongue shortly after completing his antibiotic therapy with Zosyn. He received a dose of Solu- Medrol and a dose of Benadryl and over the next couple of hours his swelling resolved. He did not have respiratory compromise. He feels fine today. He did not have any fevers overnight. No complaints of cough, abdominal pain or nausea. Blood sugars were elevated last night after the Solu-Medrol. Functional Status: Reports: Pain Controlled, Tolerating Diet - Review of Systems General: Reports: Weakness. Denies: Fever - Patient Data Vitals - Most Recent: Last Vital Signs Temp 35.2 C L 10/07/18 07:43 Pulse 71 10/07/18 08:04 Resp 18 10/07/18 07:43 BP 164/75 H 10/07/18 08:04 Pulse Ox 95 10/07/18 07:43 Weight - Most Recent: 111.221 kg I&O - Last 24 Hours: Intake & Output 10/06/18 10/07/18 10/07/18 22:59 06:59 14:59 Intake Total 221 562 700 Output Total 350 Balance -129 562 700 Lab Results Last 24 Hours: Laboratory Results - last 24 hr 10/07/18 Range/Units 05:45 Sodium 134 L (140-148) mmol/L Potassium 4.2 (3.6-5.2) mmol/L Chloride 99 L (100-108) mmol/L Carbon Dioxide 27 (21-32) mmol/L Anion Gap 12.2 (5.0-14.0) mmol/L BUN 26 H (7-18) mg/dL Creatinine 0.9 (0.8-1.3) mg/dL Est Cr Clr Drug Dosing 72.91 mL/min Estimated GFR (MDRD) > 60 (>60) Glucose 323 H (74-106) mg/dL Calcium 9.0 (8.5-10.1) mg/dL Fei Results Last 24 Hours: Microbiology 10/05/18 00:24 Aerobic Blood Culture - Preliminary Blood - Arm, Right NO GROWTH AFTER 2 DAYS Anaerobic Blood Culture - Preliminary NO GROWTH AFTER 2 DAYS 10/05/18 00:30 Aerobic Blood Culture - Preliminary Blood - Arm, Right NO GROWTH AFTER 2 DAYS Anaerobic Blood Culture - Preliminary NO GROWTH AFTER 2 DAYS Med Orders - Current: Current Medications Acetaminophen (Tylenol) 650 mg PO Q4H PRN PRN Reason: Pain (Mild 1-3)/fever Albuterol (Proventil Neb Soln) 2.5 mg NEB Q4H PRN PRN Reason: Shortness Of Breath/wheezing Albuterol/Ipratropium (Duoneb 3.0-0.5 Mg/3 Ml) 3 ml NEB QIDRT [facility] Last Admin: 10/07/18 07:17 Dose: 3 ml Amlodipine Besylate (Norvasc) 2.5 mg PO DAILY [facility] Last Admin: 10/07/18 08:04 Dose: 2.5 mg Bisacodyl (Dulcolax) 5 mg PO DAILY PRN PRN Reason: Constipation Clotrimazole (Lotrimin Af 1% Crm) 0 gm TOP BID [facility] Last Admin: 10/07/18 08:05 Dose: 1 applic Docusate Sodium (Colace) 100 mg PO BID PRN PRN Reason: Constipation Furosemide (Lasix) 40 mg PO DAILY [facility] Last Admin: 10/07/18 08:04 Dose: 40 mg Insulin Glargine (Lantus Solostar) 30 units SUBCUT BID [facility] Last Admin: 10/07/18 08:07 Dose: 30 unit Insulin Human Lispro (Humalog) 0 unit SUBCUT QIDACANDBED [facility]; Protocol Last Admin: 10/07/18 08:08 Dose: 6 units Insulin Human Lispro (Humalog) 20 unit SUBCUT TIDMEALS [facility] Last Admin: 10/07/18 08:09 Dose: 20 unit Lactobacillus Rhamnosus (Culturelle) 1 cap PO BID [facility] Last Admin: 10/07/18 08:04 Dose: 1 cap Lorazepam (Ativan) 1 mg IV Q6H PRN PRN Reason: Nausea/Vomiting Melatonin (Melatonin) 9 mg PO BEDTIME [facility] Last Admin: 10/06/18 20:57 Dose: 9 mg [facility] Last Admin: 10/07/18 08:04 Dose: 1,000 mg Metoprolol Succinate (Toprol Xl) 50 mg PO BID [facility] Last Admin: 10/07/18 08:04 Dose: 50 mg Morphine Sulfate (Morphine) 2 mg IVPUSH Q2H PRN PRN Reason: Pain (severe 7-10) Ondansetron HCl (Zofran Odt) 4 mg PO Q6H PRN PRN Reason: Nausea able to take PO Oxycodone HCl (Oxycodone) 5 mg PO Q4H PRN PRN Reason: Pain (moderate 4-6) Sodium Chloride (Saline Flush) 10 ml FLUSH ASDIRECTED PRN PRN Reason: Keep Vein Open Last Admin: 10/05/18 00:56 Dose: 10 ml Tamsulosin HCl (Flomax) 0.4 mg PO PCBREAKFAST [facility] Last Admin: 10/07/18 08:04 Dose: 0.4 mg Triamterene/HCTZ (Maxzide 25-37.5 Mg) 1 each PO DAILY [facility] Last Admin: 10/07/18 08:04 Dose: 1 each Discontinued Medications Acetaminophen (Tylenol Extra Strength) 1,000 mg PO TID PRN PRN Reason: Pain Diphenhydramine HCl (Benadryl) 50 mg IVPUSH ONETIME ONE Stop: 10/06/18 17:27 Last Admin: 10/06/18 17:41 Dose: 50 mg Diphenhydramine HCl (Benadryl) Confirm Administered Dose 50 mg .ROUTE .STK-MED ONE Stop: 10/06/18 17:34 Last Admin: 10/06/18 17:53 Dose: Not Given Piperacillin Sod/Tazobactam (Sod 4.5 gm/ Sodium Chloride) 100 mls @ 100 mls/hr IV Q6H [facility] Last Admin: 10/05/18 02:59 Dose: 100 mls/hr Sodium Chloride (Normal Saline) 1,000 mls @ 125 mls/hr IV ASDIRECTED [facility] Last Admin: 10/05/18 11:31 Dose: 125 mls/hr Sodium Chloride (Normal Saline) Confirm Administered Dose 100 mls @ as directed .ROUTE .STK-MED ONE Stop: 10/05/18 02:40 Last Admin: 10/05/18 04:04 Dose: Not Given Piperacillin/Tazobactam/ (Dextrose 4.5 gm/ Premix) 100 mls @ 100 mls/hr IV Q6H [facility] Last Admin: 10/06/18 13:18 Dose: 100 mls/hr Sodium Chloride (Normal Saline) 1,000 mls @ 25 mls/hr IV ASDIRECTED [facility] Last Admin: 10/06/18 23:05 Dose: 25 mls/hr Insulin Human Lispro (Humalog) 0 unit SUBCUT QIDACANDBED [facility]; Protocol Last Admin: 10/05/18 11:58 Dose: Not Given Insulin Human Lispro (Humalog) 10 unit SUBCUT ONETIME ONE Stop: 10/05/18 11:31 Last Admin: 10/05/18 12:01 Dose: 10 unit Insulin Human Lispro (Humalog) 15 unit SUBCUT TIDMEALS [facility] Last Admin: 10/06/18 08:10 Dose: 15 units Insulin Human Lispro (Humalog) 15 unit SUBCUT ONETIME ONE Stop: 10/05/18 16:56 Last Admin: 10/05/18 17:46 Dose: Not Given Lidocaine HCl (Xylocaine 2% Jelly) 10 ml MUCMEM ONETIME ONE Stop: 10/05/18 00:31 Last Admin: 10/05/18 00:34 Dose: 10 ml Magnesium Hydroxide (Milk Of Magnesia) 30 ml PO ONETIME ONE Stop: 10/05/18 13:31 Last Admin: 10/05/18 13:12 Dose: 30 ml Melatonin (Melatonin) 6 mg PO BEDTIME [facility] Methylprednisolone Sodium Succinate (Solu-Medrol) 125 mg IVPUSH ONETIME ONE Stop: 10/06/18 17:26 Last Admin: 10/06/18 17:43 Dose: 125 mg Methylprednisolone Sodium Succinate (Solu-Medrol) Confirm Administered Dose 125 mg .ROUTE .STK-MED ONE Stop: 10/06/18 17:34 Last Admin: 10/06/18 17:53 Dose: Not Given Piperacillin Sod/Tazobactam Sod (Zosyn) Confirm Administered Dose 4.5 gm .ROUTE .STK-MED ONE Stop: 10/05/18 02:40 Last Admin: 10/05/18 04:04 Dose: Not Given Potassium Chloride (Klor-Con M20) 40 meq PO ONETIME ONE Stop: 10/06/18 10:31 Last Admin: 10/06/18 10:00 Dose: 40 meq - Exam Quality Assessment: No: Supplemental Oxygen General: Alert, Cooperative, No Acute Distress. No: Oriented Lungs: Normal Respiratory Effort, Crackles (few both bases) Cardiovascular: Regular Rate, Regular Rhythm GI/Abdominal Exam: Soft, No Distention Extremities: Pedal Edema. No: Increased Warmth Psy/Mental Status: Alert, Normal Affect. No: Agitated - Problem List Review Problem List Initiated/Reviewed/Updated: Yes - My Orders Last 24 Hours: My Active Orders 10/06/18 12:00 Insulin Lispro [HumaLOG] 20 unit SUBCUT TIDMEALS 10/06/18 12:37 HENRIETTA Bandage [Elastic Wrap] [OM.PC] DAILY 10/07/18 09:33 Convert IV to Saline Lock [OM.PC] Routine 10/07/18 09:34 Discontinue Telemetry Monitoring [Cardiac Monitoring Discontinue] [RC] Click to Edit 10/07/18 11:30 GLUCOSE POC LAB TO COLLECT [POC] QIDACANDBED 10/07/18 12:37 HENRIETTA Bandage [Elastic Wrap] [OM.PC] DAILY 10/07/18 16:30 GLUCOSE POC LAB TO COLLECT [POC] QIDACANDBED 10/07/18 21:00 GLUCOSE POC LAB TO COLLECT [POC] QIDACANDBED 10/08/18 05:00 BASIC METABOLIC PANEL,BMP [CHEM] Timed CBC W/O DIFF,HEMOGRAM [HEME] Timed (1) 10/08/18 07:30 GLUCOSE POC LAB TO COLLECT [POC] QIDACANDBED 10/08/18 11:30 GLUCOSE POC LAB TO COLLECT [POC] QIDACANDBED 10/08/18 12:37 HENRIETTA Bandage [Elastic Wrap] [OM.PC] DAILY 10/08/18 16:30 GLUCOSE POC LAB TO COLLECT [POC] QIDACANDBED 10/08/18 21:00 GLUCOSE POC LAB TO COLLECT [POC] QIDACANDBED 10/09/18 07:30 GLUCOSE POC LAB TO COLLECT [POC] QIDACANDBED 10/09/18 11:30 GLUCOSE POC LAB TO COLLECT [POC] QIDACANDBED 10/09/18 16:30 GLUCOSE POC LAB TO COLLECT [POC] QIDACANDBED 10/09/18 21:00 GLUCOSE POC LAB TO COLLECT [POC] QIDACANDBED 10/10/18 07:30 GLUCOSE POC LAB TO COLLECT [POC] QIDACANDBED 10/10/18 11:30 GLUCOSE POC LAB TO COLLECT [POC] QIDACANDBED 10/10/18 16:30 GLUCOSE POC LAB TO COLLECT [POC] QIDACANDBED 10/10/18 21:00 GLUCOSE POC LAB TO COLLECT [POC] QIDACANDBED 10/11/18 07:30 GLUCOSE POC LAB TO COLLECT [POC] QIDACANDBED 10/11/18 11:30 GLUCOSE POC LAB TO COLLECT [POC] QIDACANDBED 10/11/18 16:30 GLUCOSE POC LAB TO COLLECT [POC] QIDACANDBED 10/11/18 21:00 GLUCOSE POC LAB TO COLLECT [POC] QIDACANDBED 10/12/18 07:30 GLUCOSE POC LAB TO COLLECT [POC] QIDACANDBED 10/12/18 11:30 GLUCOSE POC LAB TO COLLECT [POC] QIDACANDBED 10/12/18 16:30 GLUCOSE POC LAB TO COLLECT [POC] QIDACANDBED 10/12/18 21:00 GLUCOSE POC LAB TO COLLECT [POC] QIDACANDBED 10/13/18 07:30 GLUCOSE POC LAB TO COLLECT [POC] QIDACANDBED 10/13/18 11:30 GLUCOSE POC LAB TO COLLECT [POC] QIDACANDBED 10/13/18 16:30 GLUCOSE POC LAB TO COLLECT [POC] QIDACANDBED 10/13/18 21:00 GLUCOSE POC LAB TO COLLECT [POC] QIDACANDBED 10/14/18 07:30 GLUCOSE POC LAB TO COLLECT [POC] QIDACANDBED 10/14/18 11:30 GLUCOSE POC LAB TO COLLECT [POC] QIDACANDBED 10/14/18 16:30 GLUCOSE POC LAB TO COLLECT [POC] QIDACANDBED 10/14/18 21:00 GLUCOSE POC LAB TO COLLECT [POC] QIDACANDBED 10/15/18 07:30 GLUCOSE POC LAB TO COLLECT [POC] QIDACANDBED 10/15/18 11:30 GLUCOSE POC LAB TO COLLECT [POC] QIDACANDBED 10/15/18 16:30 GLUCOSE POC LAB TO COLLECT [POC] QIDACANDBED 10/15/18 21:00 GLUCOSE POC LAB TO COLLECT [POC] QIDACANDBED 10/16/18 07:30 GLUCOSE POC LAB TO COLLECT [POC] QIDACANDBED 10/16/18 11:30 GLUCOSE POC LAB TO COLLECT [POC] QIDACANDBED 10/16/18 16:30 GLUCOSE POC LAB TO COLLECT [POC] QIDACANDBED 10/16/18 21:00 GLUCOSE POC LAB TO COLLECT [POC] QIDACANDBED 10/17/18 07:30 GLUCOSE POC LAB TO COLLECT [POC] QIDACANDBED 10/17/18 11:30 GLUCOSE POC LAB TO COLLECT [POC] QIDACANDBED 10/17/18 16:30 GLUCOSE POC LAB TO COLLECT [POC] QIDACANDBED 10/17/18 21:00 GLUCOSE POC LAB TO COLLECT [POC] QIDACANDBED 10/18/18 07:30 GLUCOSE POC LAB TO COLLECT [POC] QIDACANDBED 10/18/18 11:30 GLUCOSE POC LAB TO COLLECT [POC] QIDACANDBED 10/18/18 16:30 GLUCOSE POC LAB TO COLLECT [POC] QIDACANDBED 10/18/18 21:00 GLUCOSE POC LAB TO COLLECT [POC] QIDACANDBED 10/19/18 07:30 GLUCOSE POC LAB TO COLLECT [POC] QIDACANDBED 10/19/18 11:30 GLUCOSE POC LAB TO COLLECT [POC] QIDACANDBED 10/19/18 16:30 GLUCOSE POC LAB TO COLLECT [POC] QIDACANDBED 10/19/18 21:00 GLUCOSE POC LAB TO COLLECT [POC] QIDACANDBED 10/20/18 07:30 GLUCOSE POC LAB TO COLLECT [POC] QIDACANDBED 10/20/18 11:30 GLUCOSE POC LAB TO COLLECT [POC] QIDACANDBED 10/20/18 16:30 GLUCOSE POC LAB TO COLLECT [POC] QIDACANDBED 10/20/18 21:00 GLUCOSE POC LAB TO COLLECT [POC] QIDACANDBED 10/21/18 07:30 GLUCOSE POC LAB TO COLLECT [POC] QIDACANDBED 10/21/18 11:30 GLUCOSE POC LAB TO COLLECT [POC] QIDACANDBED 10/21/18 16:30 GLUCOSE POC LAB TO COLLECT [POC] QIDACANDBED 10/21/18 21:00 GLUCOSE POC LAB TO COLLECT [POC] QIDACANDBED 10/22/18 07:30 GLUCOSE POC LAB TO COLLECT [POC] QIDACANDBED 10/22/18 11:30 GLUCOSE POC LAB TO COLLECT [POC] QIDACANDBED - Plan Plan:: ASSESSMENT AND PLAN - Fever and acute urinary retention - c/w with previous urinary tract infection though urine not strongly suggestive of infection. No fevers. Unfortunately no urine culture was set up. Antibiotics discontinued because of possible adverse reaction. No fevers. Voiding well after catheter removed yesterday. -Discontinue antibiotics, monitor for fever -Follow-up blood cultures Insulin-dependent diabetes mellitus - moderate elevation of blood sugars with control being worse after dose of Solu-Medrol yesterday. -Continue long-acting insulin -Increase mealtime insulin to 20 units -Sliding-scale coverage high-dose -Continue metformin Alzheimer's disease without behavioral disturbance - no behavior issues at this time. Patient currently weak and requiring significant assistance. -Melatonin at bedtime -Physical therapy Monday lower leg edema - chronic and stable. -skin care -wrap leg daily with henrietta wraps Hypertension -continue home medications Maintenance issues - - DVT prophylaxis - scd - GI prophylaxis - Protonix 40 mg daily - Nutrition - diabetic - Leo catheter - removed 10/06 -consult PT -strengthen Disposition - I would anticipate discharge to the [facility] after the hospital stay. Family does not feel they can provide adequate care at home at this time. Chuy Childers M.D.
[2018-10-07] MEDS: Melatonin 3 MG Tab PO SCH (21:03)
[2018-10-08] MEDS: Albuterol/Ipratropium 3.0-0.5 MG/3 ML Neb Soln NEB SCH ×4 (07:12→21:27)
[2018-10-08] MEDS: metFORMIN 500 MG Tab PO SCH ×2 (08:44→17:18)
[2018-10-08] MEDS: Insulin Lispro 100 Unit/ML 3 ML KwikPen SUBCUT SCH ×7 (08:44→21:25)
[2018-10-08] MEDS: Lactobacillus Rhamnosus GG (Probiotic) Cap PO SCH ×2 (08:45→21:27)
[2018-10-08] MEDS: Insulin Glargine,Human Rec. Analog 100 Units/ML 3 ML Pen SUBCUT SCH ×2 (08:45→21:28)
[2018-10-08] MEDS: Furosemide 40 MG Tab PO SCH (08:45)
[2018-10-08] MEDS: Tamsulosin 0.4 MG Cap.ER PO SCH (08:45)
[2018-10-08] MEDS: amLODIPine 5 MG Tab PO SCH (08:46)
[2018-10-08] MEDS: Hydrochlorothiazide/Triamterene 25-37.5 Tab PO SCH (08:46)
[2018-10-08] MEDS: Clotrimazole 1% Crm 30 GM Tube TOP SCH ×2 (08:46→21:37)
[2018-10-08] MEDS: Metoprolol Succinate 50 MG Tab.ER PO SCH ×2 (08:47→21:29)
[2018-10-08] MEDS ORDERED: Potassium Chloride 20 MEQ Tab.ER PO ONE ×2 (11:00→17:00)
--- NOTE | 2018-10-08 13:22 | PCM.PN ---
- General Info Date of Service: 10/08/18 Admission Dx/Problem (Free Text): Mr. Hernandez has been stable since yesterday, good vital signs and no significant temperature elevation. His feels that she is no longer able to care for him at home and he will require senior care placement at the time of discharge. Functional Status: Reports: Tolerating Diet, Urinating. Denies: Ambulating - Review of Systems General: Reports: Weakness. Denies: Fever, Chills Pulmonary: Reports: No Symptoms Cardiovascular: Reports: No Symptoms Gastrointestinal: Reports: No Symptoms - Patient Data Vitals - Most Recent: Last Vital Signs Temp 96.7 F 10/08/18 11:00 Pulse 68 10/08/18 11:01 Resp 20 10/08/18 11:00 BP 155/74 H 10/08/18 11:00 Pulse Ox 97 10/08/18 11:00 Weight - Most Recent: 245 lb 3.205 oz I&O - Last 24 Hours: Intake & Output 10/07/18 10/08/18 10/08/18 22:59 06:59 14:59 Intake Total 520 300 540 Balance 520 300 540 Lab Results Last 24 Hours: Laboratory Results - last 24 hr 10/08/18 10/08/18 Range/Units 04:30 04:30 WBC 5.3 (4.5-11.0) K/uL RBC 4.70 (4.30-5.90) M/uL Hgb 12.0 (12.0-15.0) g/dL Hct 36.8 L (40.0-54.0) % MCV 78 L (80-98) fL MCH 26 L (27-31) pg MCHC 33 (32-36) % Plt Count 202 (150-400) K/uL Sodium 137 L (140-148) mmol/L Potassium 3.1 L (3.6-5.2) mmol/L Chloride 98 L (100-108) mmol/L Carbon Dioxide 31 (21-32) mmol/L Anion Gap 11.1 (5.0-14.0) mmol/L BUN 24 H (7-18) mg/dL Creatinine 0.7 L (0.8-1.3) mg/dL Est Cr Clr Drug Dosing 93.74 mL/min Estimated GFR (MDRD) > 60 (>60) Glucose 118 H (74-106) mg/dL Calcium 9.2 (8.5-10.1) mg/dL Fei Results Last 24 Hours: Microbiology 10/05/18 00:24 Aerobic Blood Culture - Preliminary Blood - Arm, Right NO GROWTH AFTER 3 DAYS Anaerobic Blood Culture - Preliminary NO GROWTH AFTER 3 DAYS 10/05/18 00:30 Aerobic Blood Culture - Preliminary Blood - Arm, Right NO GROWTH AFTER 3 DAYS Anaerobic Blood Culture - Preliminary NO GROWTH AFTER 3 DAYS Med Orders - Current: Current Medications Acetaminophen (Tylenol) 650 mg PO Q4H PRN PRN Reason: Pain (Mild 1-3)/fever Albuterol (Proventil Neb Soln) 2.5 mg NEB Q4H PRN PRN Reason: Shortness Of Breath/wheezing Albuterol/Ipratropium (Duoneb 3.0-0.5 Mg/3 Ml) 3 ml NEB QIDRT [facility] Last Admin: 10/08/18 10:58 Dose: 3 ml Amlodipine Besylate (Norvasc) 2.5 mg PO DAILY [facility] Last Admin: 10/08/18 08:46 Dose: 2.5 mg Bisacodyl (Dulcolax) 5 mg PO DAILY PRN PRN Reason: Constipation Clotrimazole (Lotrimin Af 1% Crm) 0 gm TOP BID [facility] Last Admin: 10/08/18 08:46 Dose: 1 applic Docusate Sodium (Colace) 100 mg PO BID PRN PRN Reason: Constipation Furosemide (Lasix) 40 mg PO DAILY [facility] Last Admin: 10/08/18 08:45 Dose: 40 mg Insulin Glargine (Lantus Solostar) 30 units SUBCUT BID [facility] Last Admin: 10/08/18 08:45 Dose: 30 unit Insulin Human Lispro (Humalog) 0 unit SUBCUT QIDACANDBED [facility]; Protocol Last Admin: 10/08/18 11:41 Dose: 2 units Insulin Human Lispro (Humalog) 20 unit SUBCUT TIDMEALS [facility] Last Admin: 10/08/18 11:41 Dose: 20 unit Lactobacillus Rhamnosus (Culturelle) 1 cap PO BID [facility] Last Admin: 10/08/18 08:45 Dose: 1 cap Lorazepam (Ativan) 1 mg IV Q6H PRN PRN Reason: Nausea/Vomiting Melatonin (Melatonin) 9 mg PO BEDTIME [facility] Last Admin: 10/07/18 21:03 Dose: 9 mg Metformin HCl (Glucophage) 1,000 mg PO BIDPC [facility] Last Admin: 10/08/18 08:44 Dose: 1,000 mg Metoprolol Succinate (Toprol Xl) 50 mg PO BID [facility] Last Admin: 10/08/18 08:47 Dose: 50 mg Morphine Sulfate (Morphine) 2 mg IVPUSH Q2H PRN PRN Reason: Pain (severe 7-10) Ondansetron HCl (Zofran Odt) 4 mg PO Q6H PRN PRN Reason: Nausea able to take PO Oxycodone HCl (Oxycodone) 5 mg PO Q4H PRN PRN Reason: Pain (moderate 4-6) Potassium Chloride (Klor-Con M20) 40 meq PO ONETIME ONE Stop: 10/08/18 17:01 Sodium Chloride (Saline Flush) 10 ml FLUSH ASDIRECTED PRN PRN Reason: Keep Vein Open Last Admin: 10/05/18 00:56 Dose: 10 ml Tamsulosin HCl (Flomax) 0.4 mg PO PCBREAKFAST [facility] Last Admin: 10/08/18 08:45 Dose: 0.4 mg Triamterene/HCTZ (Maxzide 25-37.5 Mg) 1 each PO DAILY [facility] Last Admin: 10/08/18 08:46 Dose: 1 each Discontinued Medications Acetaminophen (Tylenol Extra Strength) 1,000 mg PO TID PRN PRN Reason: Pain Diphenhydramine HCl (Benadryl) 50 mg IVPUSH ONETIME ONE Stop: 10/06/18 17:27 Last Admin: 10/06/18 17:41 Dose: 50 mg Diphenhydramine HCl (Benadryl) Confirm Administered Dose 50 mg .ROUTE .STK-MED ONE Stop: 10/06/18 17:34 Last Admin: 10/06/18 17:53 Dose: Not Given Piperacillin Sod/Tazobactam (Sod 4.5 gm/ Sodium Chloride) 100 mls @ 100 mls/hr IV Q6H [facility] Last Admin: 10/05/18 02:59 Dose: 100 mls/hr Sodium Chloride (Normal Saline) 1,000 mls @ 125 mls/hr IV ASDIRECTED [facility] Last Admin: 10/05/18 11:31 Dose: 125 mls/hr Sodium Chloride (Normal Saline) Confirm Administered Dose 100 mls @ as directed .ROUTE .STK-MED ONE Stop: 10/05/18 02:40 Last Admin: 10/05/18 04:04 Dose: Not Given Piperacillin/Tazobactam/ (Dextrose 4.5 gm/ Premix) 100 mls @ 100 mls/hr IV Q6H [facility] Last Admin: 10/06/18 13:18 Dose: 100 mls/hr Sodium Chloride (Normal Saline) 1,000 mls @ 25 mls/hr IV ASDIRECTED [facility] Last Admin: 10/06/18 23:05 Dose: 25 mls/hr Insulin Human Lispro (Humalog) 0 unit SUBCUT QIDACANDBED [facility]; Protocol Last Admin: 10/05/18 11:58 Dose: Not Given Insulin Human Lispro (Humalog) 10 unit SUBCUT ONETIME ONE Stop: 10/05/18 11:31 Last Admin: 10/05/18 12:01 Dose: 10 unit Insulin Human Lispro (Humalog) 15 unit SUBCUT TIDMEALS [facility] Last Admin: 10/06/18 08:10 Dose: 15 units Insulin Human Lispro (Humalog) 15 unit SUBCUT ONETIME ONE Stop: 10/05/18 16:56 Last Admin: 10/05/18 17:46 Dose: Not Given Lidocaine HCl (Xylocaine 2% Jelly) 10 ml MUCMEM ONETIME ONE Stop: 10/05/18 00:31 Last Admin: 10/05/18 00:34 Dose: 10 ml Magnesium Hydroxide (Milk Of Magnesia) 30 ml PO ONETIME ONE Stop: 10/05/18 13:31 Last Admin: 10/05/18 13:12 Dose: 30 ml Melatonin (Melatonin) 6 mg PO BEDTIME [facility] Methylprednisolone Sodium Succinate (Solu-Medrol) 125 mg IVPUSH ONETIME ONE Stop: 10/06/18 17:26 Last Admin: 10/06/18 17:43 Dose: 125 mg Methylprednisolone Sodium Succinate (Solu-Medrol) Confirm Administered Dose 125 mg .ROUTE .STK-MED ONE Stop: 10/06/18 17:34 Last Admin: 10/06/18 17:53 Dose: Not Given Piperacillin Sod/Tazobactam Sod (Zosyn) Confirm Administered Dose 4.5 gm .ROUTE .STK-MED ONE Stop: 10/05/18 02:40 Last Admin: 10/05/18 04:04 Dose: Not Given Potassium Chloride (Klor-Con M20) 40 meq PO ONETIME ONE Stop: 10/06/18 10:31 Last Admin: 10/06/18 10:00 Dose: 40 meq Potassium Chloride (Klor-Con M20) 40 meq PO ONETIME ONE Stop: 10/08/18 11:01 Last Admin: 10/08/18 11:16 Dose: 40 meq - Exam Quality Assessment: DVT Prophylaxis General: Alert, Cooperative, No Acute Distress Lungs: Clear to Auscultation, Normal Respiratory Effort Cardiovascular: Regular Rate, Regular Rhythm, No Murmurs GI/Abdominal Exam: Soft, Non-Tender, No Organomegaly, No Distention Extremities: Non-Tender, Pedal Edema - Problem List Review Problem List Initiated/Reviewed/Updated: Yes - My Orders Last 24 Hours: My Active Orders 10/08/18 13:19 POTASSIUM,K [CHEM] Timed 10/08/18 17:00 Potassium Chloride [Klor-Con M20] 40 meq PO ONETIME ONE - Plan Plan:: ASSESSMENT AND PLAN - Fever and acute urinary retention - c/w with previous urinary tract infection though urine not strongly suggestive of infection. No fevers. Unfortunately no urine culture was set up. Antibiotics discontinued because of possible adverse reaction. No fevers. Voiding well after catheter removed. -monitor for fever -Follow-up blood cultures Insulin-dependent diabetes mellitus - moderate elevation of blood sugars with control being worse after dose of Solu-Medrol. -Continue long-acting insulin -Increase mealtime insulin to 20 units -Sliding-scale coverage high-dose -Continue metformin Alzheimer's disease without behavioral disturbance - no behavior issues at this time. Patient currently weak and requiring significant assistance. -Melatonin at bedtime -Physical therapy Monday lower leg edema - chronic and stable. -skin care -wrap leg daily with sp wraps Hypertension -continue home medications Maintenance issues - - DVT prophylaxis - scd - GI prophylaxis - Protonix 40 mg daily - Nutrition - diabetic - Leo catheter - removed 10/06 -consult PT -strengthen Disposition - I would anticipate discharge to the senior care tomorrow
[2018-10-08] MEDS ORDERED: Insulin Lispro 100 Unit/ML 3 ML KwikPen SUBCUT ONE ×2 (17:09→17:10)
[2018-10-08] MEDS: Melatonin 3 MG Tab PO SCH (21:27)
[2018-10-09] MEDS: Albuterol/Ipratropium 3.0-0.5 MG/3 ML Neb Soln NEB SCH (07:21)
[2018-10-09 07:48] VITALS: BP 173/65; PULSE 60
[2018-10-09] MEDS: Insulin Lispro 100 Unit/ML 3 ML KwikPen SUBCUT SCH ×2 (07:50)
[2018-10-09] MEDS: metFORMIN 500 MG Tab PO SCH (07:51)
[2018-10-09] MEDS: Metoprolol Succinate 50 MG Tab.ER PO SCH (08:54)
[2018-10-09] MEDS: Hydrochlorothiazide/Triamterene 25-37.5 Tab PO SCH (08:54)
[2018-10-09] MEDS: Lactobacillus Rhamnosus GG (Probiotic) Cap PO SCH (08:55)
[2018-10-09] MEDS: Furosemide 40 MG Tab PO SCH (08:55)
[2018-10-09] MEDS: amLODIPine 5 MG Tab PO SCH (08:55)
[2018-10-09] MEDS: Insulin Glargine,Human Rec. Analog 100 Units/ML 3 ML Pen SUBCUT SCH (08:55)
[2018-10-09] MEDS: Clotrimazole 1% Crm 30 GM Tube TOP SCH (08:56)
[2018-10-09] MEDS: Tamsulosin 0.4 MG Cap.ER PO SCH (08:56)
--- NOTE | 2018-10-09 09:30 | PCM.DCSUM1 ---
Discharge Summary - Hospital Course Brief History: Mr. Hernandez is a 77-year-old gentleman who was admitted through the emergency department with increased weakness and fever, initially this was thought to be secondary to a urinary tract infection. - Discharge Data Discharge Date: 10/09/18 Discharge Disposition: DC/Tfer to SNF 03 Condition: Stable - Discharge Diagnosis/Problem(s) (1) Lymphedema of both lower extremities SNOMED Code(s): 79433330179582535 ICD Code: I89.0 - LYMPHEDEMA, NOT ELSEWHERE CLASSIFIED Status: Acute Priority: Medium Current Visit: Yes (2) Acute urinary retention SNOMED Code(s): 243140771 ICD Code: R33.8 - OTHER RETENTION OF URINE Status: Acute Current Visit: Yes (3) Dementia without behavioral disturbance SNOMED Code(s): 28840865 ICD Code: F03.90 - UNSPECIFIED DEMENTIA WITHOUT BEHAVIORAL DISTURBANCE Status: Chronic Current Visit: No Qualifiers: Dementia type: Alzheimer's disease Alzheimer's disease onset: late-onset Qualified Code(s): G30.1 - Alzheimer's disease with late onset; F02.80 - Dementia in other diseases classified elsewhere without behavioral disturbance (4) Diabetes mellitus type 2 SNOMED Code(s): 86379935 ICD Code: E11.9 - TYPE 2 DIABETES MELLITUS WITHOUT COMPLICATIONS Status: Chronic Priority: Medium Current Visit: Yes - Patient Summary/Data Consults: Consultations 10/05/18 02:03 Spiritual Care Follow Up [CONS] Routine Spiritual Resources: Other (See Spec Instr) Special Instructions: daily prayer for illness 10/05/18 02:27 OT Evaluation and Treatment [CONS] Routine Please Evaluate and Treat. OT Reason for Consult: Discharge Planning This query below is only for informational purposes and is not editable. PT Evaluation and Treatment [CONS] Routine Please Evaluate and Treat. PT Reason for Consult: Strengthening This query below is only for informational purposes and is not editable. Hospital Course: Mr. Hernandez is a 77-year-old gentleman who was admitted through the emergency department with fever and weakness. He has dementia and today has a fever. His said he was up to 103 he vomited once this morning and hence hasn't had anything to eat or drink all day. He was hospitalized about a month ago for a urinary tract infection and I believe he had some urinary retention then. He is unable to void now. His says that his legs normally swell that usually they put wraps every day but the wraps were not placed today by home health care. He had been in a jail and he was taken out of the jail a month or so ago. On evaluation in the emergency department was felt to have probable urinary tract infection and was started on IV antibiotic therapy with Zosyn. On admission he was given IV fluids for hydration and Leo catheter was left in initially. During hospital stay did develop apparent allergic reaction to Zosyn with tongue swelling and antibiotic therapy was discontinued. After admission review of urinalysis was felt to be somewhat suspect as far as infection and all antibiotic therapy was discontinued with Zosyn. At the time of discharge he was felt not to have had a urinary tract infection. He had no further significant temperature elevations during his hospitals stay. There was no evidence of other source of infection noted while monitored during hospitalization. Was felt likely that his weakness had developed slowly at home and gotten to the point where his felt she was unable to provide care for him. He will be discharged to the jail for restorative physical therapy and occupational therapy. He will remain on probiotic therapy twice daily. At the jail and receive daily physical therapy as well as occupational therapy. Legs will be wrapped daily or ongoing management of his lymphedema. Activity will be as tolerated and he will be on a low-sodium diabetic diet. Glucose levels were monitored throughout his hospital stay and he did receive decreased doses of his usual insulin because of hypoglycemia. Was felt likely that he was not eating as much in the hospital as he typically eats at home. Follow-up appointment will be scheduled with his primary care provider within one week. - Patient Instructions Diet: Low Sodium, Diabetic Diet Activity: As Tolerated Other/Special Instructions: Daily PT and OT while at jail. Follow up appt. w/ primary care provider within 1 week. Lab 10/11; INR and Potassium - Discharge Plan *PRESCRIPTION DRUG MONITORING PROGRAM REVIEWED*: Not Applicable *COPY OF PRESCRIPTION DRUG MONITORING REPORT IN PATIENT NARENDRA: Not Applicable Home Medications: Home Meds Aspirin [Adult Low Dose Aspirin EC] 81 mg PO DAILY 03/21/13 [History] HCTZ/Triamterene [Maxzide 25-37.5 MG] 1 tab PO DAILY 03/21/13 [History] Metoprolol Succinate [Toprol XL] 50 mg PO BID 03/21/13 [History] Multivitamin [Multi-Vitamin Daily] 1 each PO DAILY 03/21/13 [History] Simvastatin [Zocor] 10 mg PO BEDTIME 03/21/13 [History] Gemfibrozil [Lopid] 600 mg PO BIDAC #60 tablet 08/16/13 [Rx] Furosemide [Lasix] 40 mg PO DAILY 02/01/18 [History] Fexofenadine [Vera] 180 mg PO DAILY 02/28/18 [History] Tamsulosin [Flomax] 0.4 mg PO PCBREAKFAST #30 cap.er 03/01/18 [Rx] Acetaminophen [Tylenol Extra Strength] 1,000 mg PO TID PRN 03/12/18 [History] Ibuprofen 800 mg PO TID PRN 03/12/18 [History] metFORMIN [Glucophage] 1,000 mg PO BID 07/29/18 [History] Lactobacillus Rhamnosus GG [Culturelle] 1 cap PO BID #60 cap 08/01/18 [Rx] Insulin Glarg,Human.Rec.Analog [Lantus Solostar] 30 units SUBCUT BID 10/04/18 [ History] Insulin Lispro [Humalog] 15 - 20 unit SQ TIDMEALS 10/04/18 [History] amLODIPine [Norvasc] 2.5 mg PO DAILY 10/04/18 [History] Referrals: Shama Solis MD [Primary Care Provider] - - Discharge Summary/Plan Comment DC Time >30 min.: No - Patient Data Vitals - Most Recent: Last Vital Signs Temp 96.6 F 10/09/18 03:00 Pulse 60 10/09/18 08:54 Resp 16 10/09/18 07:45 BP 173/65 H 10/09/18 08:55 Pulse Ox 94 L 10/09/18 07:45 Weight - Most Recent: 245 lb 3.205 oz Lab Results - Last 24 hrs: Laboratory Results - last 24 hr 10/08/18 Range/Units 13:19 Potassium 3.9 (3.6-5.2) mmol/L MANUEL Results - Last 24 hrs: Microbiology 10/05/18 00:30 Aerobic Blood Culture - Preliminary Blood - Arm, Right NO GROWTH AFTER 4 DAYS Anaerobic Blood Culture - Preliminary NO GROWTH AFTER 4 DAYS 10/05/18 00:24 Aerobic Blood Culture - Preliminary Blood - Arm, Right NO GROWTH AFTER 4 DAYS Anaerobic Blood Culture - Preliminary NO GROWTH AFTER 4 DAYS Med Orders - Current: Current Medications Acetaminophen (Tylenol) 650 mg PO Q4H PRN PRN Reason: Pain (Mild 1-3)/fever Albuterol (Proventil Neb Soln) 2.5 mg NEB Q4H PRN PRN Reason: Shortness Of Breath/wheezing Albuterol/Ipratropium (Duoneb 3.0-0.5 Mg/3 Ml) 3 ml NEB QIDRT [facility] Last Admin: 10/09/18 07:21 Dose: 3 ml Amlodipine Besylate (Norvasc) 2.5 mg PO DAILY [facility] Last Admin: 10/09/18 08:55 Dose: 2.5 mg Bisacodyl (Dulcolax) 5 mg PO DAILY PRN PRN Reason: Constipation Clotrimazole (Lotrimin Af 1% Crm) 0 gm TOP BID [facility] Last Admin: 10/09/18 08:56 Dose: 1 applic Docusate Sodium (Colace) 100 mg PO BID PRN PRN Reason: Constipation Furosemide (Lasix) 40 mg PO DAILY [facility] Last Admin: 10/09/18 08:55 Dose: 40 mg Insulin Glargine (Lantus Solostar) 30 units SUBCUT BID [facility] Last Admin: 10/09/18 08:55 Dose: 30 unit Insulin Human Lispro (Humalog) 0 unit SUBCUT QIDACANDBED [facility]; Protocol Last Admin: 10/09/18 07:50 Dose: 2 units Insulin Human Lispro (Humalog) 20 unit SUBCUT TIDMEALS [facility] Last Admin: 10/09/18 07:50 Dose: Not Given Lactobacillus Rhamnosus (Culturelle) 1 cap PO BID [facility] Last Admin: 10/09/18 08:55 Dose: 1 cap Lorazepam (Ativan) 1 mg IV Q6H PRN PRN Reason: Nausea/Vomiting Melatonin (Melatonin) 9 mg PO BEDTIME [facility] Last Admin: 10/08/18 21:27 Dose: 9 mg Metformin HCl (Glucophage) 1,000 mg PO BIDPC [facility] Last Admin: 10/09/18 07:51 Dose: 1,000 mg Metoprolol Succinate (Toprol Xl) 50 mg PO BID [facility] Last Admin: 10/09/18 08:54 Dose: 50 mg Morphine Sulfate (Morphine) 2 mg IVPUSH Q2H PRN PRN Reason: Pain (severe 7-10) Ondansetron HCl (Zofran Odt) 4 mg PO Q6H PRN PRN Reason: Nausea able to take PO Oxycodone HCl (Oxycodone) 5 mg PO Q4H PRN PRN Reason: Pain (moderate 4-6) Sodium Chloride (Saline Flush) 10 ml FLUSH ASDIRECTED PRN PRN Reason: Keep Vein Open Last Admin: 10/05/18 00:56 Dose: 10 ml Tamsulosin HCl (Flomax) 0.4 mg PO PCBREAKFAST [facility] Last Admin: 10/09/18 08:56 Dose: 0.4 mg Triamterene/HCTZ (Maxzide 25-37.5 Mg) 1 each PO DAILY [facility] Last Admin: 10/09/18 08:54 Dose: 1 each Discontinued Medications Acetaminophen (Tylenol Extra Strength) 1,000 mg PO TID PRN PRN Reason: Pain Diphenhydramine HCl (Benadryl) 50 mg IVPUSH ONETIME ONE Stop: 10/06/18 17:27 Last Admin: 10/06/18 17:41 Dose: 50 mg Diphenhydramine HCl (Benadryl) Confirm Administered Dose 50 mg .ROUTE .STK-MED ONE Stop: 10/06/18 17:34 Last Admin: 10/06/18 17:53 Dose: Not Given Piperacillin Sod/Tazobactam (Sod 4.5 gm/ Sodium Chloride) 100 mls @ 100 mls/hr IV Q6H [facility] Last Admin: 10/05/18 02:59 Dose: 100 mls/hr Sodium Chloride (Normal Saline) 1,000 mls @ 125 mls/hr IV ASDIRECTED [facility] Last Admin: 10/05/18 11:31 Dose: 125 mls/hr Sodium Chloride (Normal Saline) Confirm Administered Dose 100 mls @ as directed .ROUTE .STK-MED ONE Stop: 10/05/18 02:40 Last Admin: 10/05/18 04:04 Dose: Not Given Piperacillin/Tazobactam/ (Dextrose 4.5 gm/ Premix) 100 mls @ 100 mls/hr IV Q6H [facility] Last Admin: 10/06/18 13:18 Dose: 100 mls/hr Sodium Chloride (Normal Saline) 1,000 mls @ 25 mls/hr IV ASDIRECTED [facility] Last Admin: 10/06/18 23:05 Dose: 25 mls/hr Insulin Human Lispro (Humalog) 0 unit SUBCUT QIDACANDBED [facility]; Protocol Last Admin: 10/05/18 11:58 Dose: Not Given Insulin Human Lispro (Humalog) 10 unit SUBCUT ONETIME ONE Stop: 10/05/18 11:31 Last Admin: 10/05/18 12:01 Dose: 10 unit Insulin Human Lispro (Humalog) 15 unit SUBCUT TIDMEALS [facility] Last Admin: 10/06/18 08:10 Dose: 15 units Insulin Human Lispro (Humalog) 15 unit SUBCUT ONETIME ONE Stop: 10/05/18 16:56 Last Admin: 10/05/18 17:46 Dose: Not Given Insulin Human Lispro (Humalog) 10 unit SUBCUT ONETIME ONE Stop: 10/08/18 17:10 Last Admin: 10/08/18 17:17 Dose: 10 units Lidocaine HCl (Xylocaine 2% Jelly) 10 ml MUCMEM ONETIME ONE Stop: 10/05/18 00:31 Last Admin: 10/05/18 00:34 Dose: 10 ml Magnesium Hydroxide (Milk Of Magnesia) 30 ml PO ONETIME ONE Stop: 10/05/18 13:31 Last Admin: 10/05/18 13:12 Dose: 30 ml Melatonin (Melatonin) 6 mg PO BEDTIME [facility] Methylprednisolone Sodium Succinate (Solu-Medrol) 125 mg IVPUSH ONETIME ONE Stop: 10/06/18 17:26 Last Admin: 10/06/18 17:43 Dose: 125 mg Methylprednisolone Sodium Succinate (Solu-Medrol) Confirm Administered Dose 125 mg .ROUTE .STK-MED ONE Stop: 10/06/18 17:34 Last Admin: 10/06/18 17:53 Dose: Not Given Piperacillin Sod/Tazobactam Sod (Zosyn) Confirm Administered Dose 4.5 gm .ROUTE .STK-MED ONE Stop: 10/05/18 02:40 Last Admin: 10/05/18 04:04 Dose: Not Given Potassium Chloride (Klor-Con M20) 40 meq PO ONETIME ONE Stop: 10/06/18 10:31 Last Admin: 10/06/18 10:00 Dose: 40 meq Potassium Chloride (Klor-Con M20) 40 meq PO ONETIME ONE Stop: 10/08/18 11:01 Last Admin: 10/08/18 11:16 Dose: 40 meq Potassium Chloride (Klor-Con M20) 40 meq PO ONETIME ONE Stop: 10/08/18 17:01 Last Admin: 10/08/18 17:18 Dose: 40 meq - Exam Quality Assessment: Reports: DVT Prophylaxis General: Reports: Alert, Cooperative, No Acute Distress. Denies: Oriented Lungs: Reports: Clear to Auscultation, Normal Respiratory Effort Cardiovascular: Reports: Regular Rate, Regular Rhythm, No Murmurs GI/Abdominal Exam: Soft, Non-Tender, No Organomegaly, No Distention
== END 2018-10-09 10:20 | DRG 864 ==
LOC: JP.ED 23:25 → JP.MS 10-05 01:46
PROVIDERS: ADMIT Internal Medicine; ATTEND Hospitalist
DX: R50.9 Fever, unspecified (principal); E78.00 Pure hypercholesterolemia, unspecified; R33.8 Other retention of urine; E11.9 Type 2 diabetes mellitus without complications; E66.9 Obesity, unspecified; Z68.30 Body mass index [BMI] 30.0-30.9, adult; F03.90 Unspecified dementia, unspecified severity, without behavioral disturbance, psychotic disturbance, mood disturbance, and anxiety; L03.119 Cellulitis of unspecified part of limb; H54.7 Unspecified visual loss; H91.90 Unspecified hearing loss, unspecified ear; Z66 Do not resuscitate; I89.0 Lymphedema, not elsewhere classified; E11.65 Type 2 diabetes mellitus with hyperglycemia; Z87.440 Personal history of urinary (tract) infections; G30.9 Alzheimer's disease, unspecified; F02.80 Dementia in other diseases classified elsewhere, unspecified severity, without behavioral disturbance, psychotic disturbance, mood disturbance, and anxiety; I10 Essential (primary) hypertension; R53.1 Weakness; Z88.1 Allergy status to other antibiotic agents; Z91.048 Other nonmedicinal substance allergy status; Z79.82 Long term (current) use of aspirin; Z79.4 Long term (current) use of insulin; Z79.899 Other long term (current) drug therapy
CPT/HCPCS: 36415; 51702; 51798; 71045; 80048; 80053; 81001; 82962; 83605; 84132; 85025; 85027; 87040; 94640; 94762; 97162-GP; 97165-GO; 99283; 99285-25; A9270-GY; J1200; J1815; J1815-GY; J2543; J2930; J7030; J7620-GY

== ENCOUNTER 2019-02-02 08:21 | Emergency (ER) | payer MEDICARE, MEDICAID ==
--- NOTE | 2019-02-02 08:36 | EDM.PDOC ---
ED HPI GENERAL MEDICAL PROBLEM - General Chief Complaint: Lower Extremity Injury/Pain Stated Complaint: LEFT LEG PAIN Time Seen by Provider: 02/02/19 08:25 Source of Information: Reports: Patient, Prison Records, RN History Limitations: Reports: No Limitations - History of Present Illness INITIAL COMMENTS - FREE TEXT/NARRATIVE: 78-year-old male fell 3 hours ago striking his left upper leg and hip onto piece of furniture then falling onto the floor. He seemed to be okay but now is complaining of left mid thigh and left hip discomfort. No shortening or rotation. No other complaints. Onset: Sudden Duration: Hour(s): (4 hours ago) Location: Reports: Lower Extremity, Left Associated Symptoms: Reports: No Other Symptoms Left Upper Posterior Leg Pain Score (Numeric/FACES): 6 - Related Data Allergies Allergy/AdvReac Type Severity Reaction Status Date / Time adhesive Allergy Severe Rash Verified 10/04/18 23:59 ciprofloxacin HCl Allergy Severe Edema Verified 10/04/18 23:59 [From Cipro] piperacillin [From Zosyn] Allergy Swollen Verified 10/08/18 07:44 Tongue tazobactam [From Zosyn] Allergy Swollen Verified 10/08/18 07:44 Tongue Home Meds: Home Meds Aspirin [Adult Low Dose Aspirin EC] 81 mg PO DAILY 03/21/13 [History] HCTZ/Triamterene [Maxzide 25-37.5 MG] 1 tab PO DAILY 03/21/13 [History] Metoprolol Succinate [Toprol XL] 100 mg PO ACBREAKFAST 03/21/13 [History] Multivitamin [Multi-Vitamin Daily] 1 each PO DAILY 03/21/13 [History] Simvastatin [Zocor] 10 mg PO BEDTIME 03/21/13 [History] Gemfibrozil [Lopid] 600 mg PO BIDAC #60 tablet 08/16/13 [Rx] Furosemide [Lasix] 40 mg PO DAILY 02/01/18 [History] Fexofenadine [Vera] 180 mg PO DAILY 02/28/18 [History] Tamsulosin [Flomax] 0.4 mg PO PCBREAKFAST #30 cap.er 03/01/18 [Rx] Acetaminophen [Tylenol Extra Strength] 1,000 mg PO TID PRN 03/12/18 [History] Ibuprofen 800 mg PO TID PRN 03/12/18 [History] metFORMIN [Glucophage] 1,000 mg PO BID 07/29/18 [History] Lactobacillus Rhamnosus GG [Culturelle] 1 cap PO BID #60 cap 08/01/18 [Rx] Insulin Glarg,Human.Rec.Analog [Lantus Solostar] 35 units SUBCNJ ACBREAKFAST [History] Insulin Lispro [Humalog] 15 - 20 unit SQ TIDMEALS 10/04/18 [History] amLODIPine [Norvasc] 2.5 mg PO DAILY 10/04/18 [History] Insulin Glarg,Human.Rec.Analog [Lantus Solostar] 25 units SUBCNJ BEDTIME [History] Past Medical History HEENT History: Reports: Cataract, Hard of Hearing, Impaired Vision, Other (See Below) Other HEENT History: No teeth Cardiovascular History: Reports: High Cholesterol, Hypertension Gastrointestinal History: Reports: None Genitourinary History: Reports: Retention, Urinary, Urinary Incontinence, UTI, Recurrent Neurological History: Reports: Other (See Below) Other Neuro History: spouse says that pt. was diagnosed with dementia about 2.5 years ago. 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 unable to read or writel Possible dementia. Endocrine/Metabolic History: Reports: Diabetes, Type II, Obesity/BMI 30+ Dermatologic History: Reports: Cellulitis Other Dermatologic History: lower ext. cellulitis - Infectious Disease History Infectious Disease History: Reports: Chicken Pox, Measles, Mumps - Past Surgical History Head Surgeries/Procedures: Reports: None HEENT Surgical History: Reports: Cataract Surgery, Eye Surgery GI Surgical History: Reports: Appendectomy Male Surgical History: Reports: None Neurological Surgical History: Reports: None Social & Family History - Family History Family Medical History: Unobtainable - Tobacco Use Smoking Status *Q: Unknown Ever Smoked - Caffeine Use Caffeine Use: Reports: Coffee Caffeine Use Comment: coup - Living Situation & Occupation Living situation: Reports: , with Family Occupation: Retired (Lives with [place] in [place], [place]. 2 children, 3 stepchildren) Review of Systems - Review of Systems Review Of Systems: See Below Constitutional: Denies: Fever Respiratory: Reports: No Symptoms Cardiovascular: Reports: No Symptoms Skin: Denies: Bruising Neurological: Denies: Headache ED EXAM, GENERAL - Physical Exam Exam: See Below Exam Limited By: No Limitations General Appearance: Alert, No Apparent Distress, Other (Patient is fairly comfortable while lying still) Respiratory/Chest: No Respiratory Distress GI/Abdominal: Soft, Non-Tender Extremities: Other (Exam is otherwise limited to the lower extremities. They look symmetric, however he has tenderness to palpation over the lateral femur and lateral left hip on the left side. Passive range of motion is also tender. Also 1+ symmetric edema below the knees) Neurological: Alert, Confused Psychiatric: Normal Affect, Normal Mood Skin Exam: Warm, Dry, Other (Venous stasis changes of the lower extremities) Course - Vital Signs Last Recorded V/S: Last Vital Signs Temp 96.3 F 02/02/19 08:31 Pulse 95 02/02/19 09:23 Resp 18 02/02/19 09:23 BP 168/65 H 02/02/19 09:23 Pulse Ox 95 02/02/19 09:23 - Re-Assessments/Exams Free Text/Narrative Re-Assessment/Exam: 02/02/19 08:44 An x-ray of the left femur and left hip were obtained. 02/02/19 09:25 X-ray shows a displaced femoral neck fracture of the left hip. Orthopedics was consulted and is unavailable until Monday here in [place], so [place] [facility] was consulted. Images were sent. The left leg also seems to be somewhat externally rotated now compared to prior to the x-ray 02/02/19 09:41 Patient was accepted as a direct admit to third floor at [facility] to be assessed and treated by orthopedics. Departure - Departure Time of Disposition: 09:56 Disposition: DC/Tfer to Other Clinical Impression: Fracture of neck of femur, hip - Discharge Information Referrals: PCP,None [Primary Care Provider] - Forms: ED Department Discharge Care Plan Goals: Patient will be transferred to [facility] for orthopedic evaluation and surgical repair of the left hip fracture. Sepsis Event Note - Evaluation Sepsis Screening Result: No Definite Risk - Focused Exam Vital Signs: Vital Signs Temp Pulse Pulse Resp BP Pulse Ox 02/02/19 09:23 95 18 168/65 H 95 02/02/19 09:22 93 L 02/02/19 09:15 63 20 146/55 H 86 L 02/02/19 08:31 96.3 F 66 18 155/66 H 90 L 02/02/19 08:24 96.3 F 66 18 155/66 H 90 L Date Exam was Performed: 02/02/19 Time Exam was Performed: 12:33
[2019-02-02 09:40] VITALS: BP 168/65; PULSE 95
--- NOTE | 2019-02-02 10:09 | CRLCR ---
INDICATION: Fall. Pain. TECHNIQUE: Frontal radiograph of the pelvis and lateral views left hip COMPARISON: None FINDINGS AND IMPRESSION: There is an acute nondisplaced fracture of the left femoral neck which is suboptimally visualized secondary to patient positioning. No other acute fracture identified. There is no dislocation. Mild bilateral hip joint space narrowing. The pubic symphysis and SI joints are intact. No suspicious bone lesion. Pelvic phleboliths noted. There is atherosclerotic vascular calcification. Dictated by Eugene Villatoro MD @ 02/02/2019 10:07:52 AM Dictated by: Eugene Villatoro MD @ 02/02/2019 10:07:59 (Electronically Signed)
== END 2019-02-02 10:12 | disposition other institution (70) ==
LOC: JP.ED 08:21
DX: S72.002A Fracture of unspecified part of neck of left femur, initial encounter for closed fracture (principal); E78.00 Pure hypercholesterolemia, unspecified; I10 Essential (primary) hypertension; F03.90 Unspecified dementia, unspecified severity, without behavioral disturbance, psychotic disturbance, mood disturbance, and anxiety; E11.9 Type 2 diabetes mellitus without complications; E66.9 Obesity, unspecified; Z68.33 Body mass index [BMI] 33.0-33.9, adult; Z88.1 Allergy status to other antibiotic agents; Z91.048 Other nonmedicinal substance allergy status; Z88.8 Allergy status to other drugs, medicaments and biological substances; Z79.82 Long term (current) use of aspirin; Z79.4 Long term (current) use of insulin; Z79.899 Other long term (current) drug therapy; W01.190A Fall on same level from slipping, tripping and stumbling with subsequent striking against furniture, initial encounter
CPT/HCPCS: 73501-LT; 99283; 99284-25